=== PATIENT | female | born 1960 | race Caucasian/White ===

== ENCOUNTER 2018-03-18 01:11 | Outpatient (CLI) | payer MEDICAID, SELFPAY ==
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
== END 2018-03-18 01:31 ==
PROVIDERS: PCP Emergency Medicine; Visit Provider Internal Medicine
DX: M54.2 Cervicalgia (principal); R51 Headache; M50.322 Other cervical disc degeneration at C5-C6 level; M50.323 Other cervical disc degeneration at C6-C7 level; M47.812 Spondylosis without myelopathy or radiculopathy, cervical region
CPT/HCPCS: 72050

== ENCOUNTER 2018-04-23 09:38 | Outpatient (CLI) | payer MEDICAID, SELFPAY ==
[2018-04-23 11:56] LABS: Cholesterol 250 mg/dL (50-200); HDL Cholesterol 60 mg/dL (40-60); LDL CHOLESTEROL 157 mg/dL (<100); TSH (W/Ref FT4) 1.09 uIU/mL (0.358-3.74); Triglyceride 123 mg/dL (30-150)
== END 2018-04-23 09:58 ==
PROVIDERS: PCP Emergency Medicine; Visit Provider Internal Medicine
DX: E78.5 Hyperlipidemia, unspecified (principal); R22.1 Localized swelling, mass and lump, neck
CPT/HCPCS: 80061; 83721; 84443

== ENCOUNTER 2018-06-13 09:26 | Outpatient (CLI) | payer MEDICAID, SELFPAY ==
[2018-06-13 13:11] LABS: Absolute Basophil Count 0.02 k/cumm (0.0-0.2); Absolute Eosinophil Count 0.05 k/cumm (0.0-0.7); Absolute Monocyte Count 0.31 k/cumm (0.11-0.7); Absolute Neutrophil Count 2.15 k/cumm (1.2-6.7); Basophils % 0.5; Eosinophils % 1.2; HGB 13.4 g/dL (12.0-15.5); Lymphocytes % 38.7; Mean Corp. HGB Concentration 33.5 g/dL (32.0-36.0); Mean Corpuscular Hemoglobin 31.1 pg (27.0-33.0); Mean Corpuscular Volume 92.8 fL (80-95); Mean Platelet Volume 11.4 fL (8.0-11.0); Monocytes % 7.5; Neutrophils % 52.1; Platelet Count 237 x1000/uL (130-400); RBC 4.31 m/cumm (4.00-5.20); RBC Distribution Width 12.6 % (11.7-14.6); White Blood Cell Count 4.13 k/cumm (4.4-10.8)
[2018-06-13 13:33] LABS: ALT 29 U/L (12-78); AST 16 U/L (15-37); Albumin 3.6 g/dL (3.4-5.0); Alkaline Phosphatase 56 U/L (46-116); Anion Gap 6.1 mmol/L (3-11); BUN 8 mg/dL (7-18); Bilirubin, Total 0.6 mg/dL (0.2-1.0); CO2 31.9 mmol/L (21.0-32.0); CREATININE 0.64 mg/dL (0.55-1.02); Calcium 9.8 mg/dL (8.5-10.1); Chloride 104 mmol/L (98-107); Glucose 100 mg/dL (70-100); Potassium 4.5 mmol/L (3.5-5.1); Sodium 142 mmol/L (136-145)
== END 2018-06-13 09:46 ==
PROVIDERS: PCP Emergency Medicine; Visit Provider Internal Medicine
DX: M54.2 Cervicalgia (principal)
CPT/HCPCS: 36415; 80053; 85025

== ENCOUNTER 2018-07-14 09:54 | Outpatient (CLI) | payer MEDICAID, SELFPAY ==
--- NOTE | 2018-07-14 09:32 | DI.RAD_ITS ---
SYMPTOMS/DIAGNOSIS: LT KNEE PAIN LEFT KNEE: The joint spaces are well maintained. No joint effusion is seen. There is minimal periarticular spurring. IMPRESSION: Minimal degenerative changes.
== END 2018-07-14 10:14 ==
PROVIDERS: PCP Emergency Medicine; Visit Provider Physician Assistant
DX: M25.562 Pain in left knee (principal); M17.12 Unilateral primary osteoarthritis, left knee
CPT/HCPCS: 73562

== ENCOUNTER 2019-12-15 16:26 | Outpatient (REF) | payer MEDICAID, SELFPAY ==
--- NOTE | 2019-12-15 13:40 | PAPFT_PTH ---
PATIENT: Tori Lopez LOC: [facility] U#:[id number] AGE/SX: 59/F ROOM: RE12/15/[address]: Dorina Canales, PhD [employer]LECTOR : 1960 BED: DIS: 12/15/2019 SPEC #: [id number] RECD: 12/16/19 13:16 STATUS: ZOË RESera #: [id number] ALEXYS: 12/15/19 13:[address]: Dorina Canales DEPT: [facility] Cytology RECD BY: Alie Ramirez Tissues: 1 - CX/ENDOCX FOR PAP SMEARS Procedures: PAP THIN PREP/UVM Screening HPV DNA PROBE Comments: [id number]
== END 2019-12-15 16:46 ==
LOC: LBN 16:26
PROVIDERS: PCP Nurse Practitioner; Visit Provider Nurse Practitioner
DX: Z12.4 Encounter for screening for malignant neoplasm of cervix (principal); Z11.51 Encounter for screening for human papillomavirus (HPV)
CPT/HCPCS: 88142; 87624

== ENCOUNTER 2020-11-16 07:47 | Day surgery (SDC) | payer MEDICAID, SELFPAY ==
--- NOTE | 2020-11-15 14:22 | W.ANESPRE ---
General Info Date of Service Date Performed: 11/16/20 Height: 5 ft 5.5 in Weight: 67.1 kg Body Mass Index (BMI): 24.2 Surgical Procedure: Operation Date: 11/16/20 09:05 Proposed Procedures Side Surgeon p Colonoscopy Suzanne Caraballo MD Meds Allergies and Home Medications Allergies Allergy/AdvReac Type Severity Reaction Status Date / Time ropinirole Allergy Severe vomited Verified 11/16/20 08:17 for 3 days sertraline [From Zoloft] AdvReac Intermediate lack of Verified 11/16/20 08:17 responsiveness Home Medication Medication Instructions Recorded acetaminophen [Acetaminophen Extra 1,000 mg PO TID #60 tab 09/05/17 Strength] ibuprofen 600 mg tablet 600 mg PO Q8H PRN PRN #30 tab 03/06/18 clonazepam 0.5 mg tablet 0.5 mg PO PRN #60 tab 09/09/20 bisacodyl 5 mg tablet,delayed 5 mg PO ONCE #4 tab 11/11/20 release polyethylene glycol 3350 17 238 g PO ONCE #238 g 11/11/20 gram/dose oral powder Current Visit Medications: Current Medications Generic Name Dose Route Start Last Admin Trade Name Freq PRN Reason Stop Dose Admin Ringer's Solution 1,000 mls @ 80 mls/hr 11/16/20 06:00 IV 12/15/20 23:59 INFUSION VERÓNICA IV Miscellaneous Supplies 1 each 11/16/20 06:00 Iv Access IV 12/15/20 23:59 DIRECTED VERÓNICA Sodium Chloride 0 ml 11/16/20 06:00 Normal Saline Flush 10 Ml Syr IV 12/15/20 23:59 PRN PRN Sodium Chloride 0 ml 11/16/20 06:00 Normal Saline 10 Ml Vial IJ 12/15/20 23:59 DIRECTED PRN Sterile Water 0 ml 11/16/20 06:00 Water,Injection,Sterile 10 Ml Vial IJ 12/15/20 23:59 DIRECTED PRN PFSH Active Problems Active Problems: Problem Status Onset Code Anxiety F41.9 Depressive disorder F32.9 Diverticula of colon 09/21/14 K57.30 Migraine G43.909 Restless leg syndrome 02/15/15 G25.81 Insomnia G47.00 Allergic rhinitis J30.9 Osteoarthritis M19.90 Diverticulitis K57.92 Colicky LLQ abdominal pain R10.32 Medical History Medical History Basal cell carcinoma of lower extremity (04/03/13) Carpal tunnel syndrome of right wrist (02/15/15) surgery 2016 Colicky LLQ abdominal pain De Quervain's tenosynovitis, left (11/02/16) Surgical History Surgical History excision of breast ducts left side for bloody discharge History of carpal tunnel release History of colonoscopy Reduction mammoplasty Tobacco Smoking/Tobacco Use Status: Never Passive smoking exposure: No Substance Use Substance use: Never Substance use type: does not use Vital Signs and Lab Results Vital Signs Most Recent Vital Signs in EMR: Temp Pulse Resp BP Pulse Ox 36.2 C L 74 16 126/81 99 11/16/20 08:14 11/16/20 08:14 11/16/20 08:14 11/16/20 08:14 11/16/20 08:14 Lab Results Blood Type / Crossmatch: No Data to Display Complete Blood Count: No Data to Display Complete Metabolic Panel: No Data to Display Liver Function Panel: No Data to Display Coagulation Panel: No Data to Display Cardiac Panel: No Data to Display Arterial Blood Gas: No Data to Display Venous Blood Gas: No Data to Display Pancreas Panel: No Data to Display Thyroid Panel: No Data to Display Infectious Disease: No Data to Display Blood Cultures: No Data to Display Toxicology Panel: No Data to Display Anesthesia Assessment and Plan Anesthesia History Personal History: PONV (With breast reduction surgery) Family History: No Family History of Anesthesia Complications Exercise Tolerance Exercise Tolerance: Metabolic Equivalents>4 Pertinent Negatives Pertinent Negatives: No Symptoms of GERD, No Major Cardiovascular Symptoms or Complaints, No Major Pulmonary Symptoms or Complaints and No History of CVA/TIA Cardiac & Pulmonary Exam Cardiac Exam: Normal S1/S2 Heart Sounds Pulmonary Exam: Clear Bilateral Breath Sounds Airway Exam Known Difficult Airway: No Mallampati Class: 2 Mouth Opening: Normal (> 3cm) Thyromental Distance: Greater than 3 cm Neck Range of Motion: Full ROM Neck Circumference: Normal Teeth Condition: Normal Dentition and Loose or Chipped (Right upper broken, none loose) ASA Classification ASA Score: ASA 2 Emergency Case?: No NPO Status NPO Status: NPO Clears >2 hours, Solids >8 hours Anesthesia Plan Resuscitation Status: Full Code Anesthesia Technique: General Anesthesia Airway Planned: Natural Airway Monitors Used: Standard Monitors Preoperative Comments:: 60 yo female for colonoscopy, last was 5 yrs ago, recent diverticulitis treatment.
--- NOTE | 2020-11-16 06:51 | COLE_ITS ---
Date of service: 11/16/20 Time of Service: 09:03 Colonoscopy Report Date of procedure: 11/16/20 Pre-op diagnosis general: Colon Cancer screening and diverticulitis Post-op diagnosis procedure note: same Procedure: Colonoscopy Surgeon: Suzanne Caraballo Anesthesia Type: General:No Airway (ASA 2/Viraj Cavazos CRNA) Estimated blood loss (mL): 0 Pathology: none sent Complications: None Disposition: same day Indications: The patient is here for Colonoscopy pre-op. Her last screening was reported to be [address] [facility]. She has no family history of colon cancer. She has recently diagnosed and treated for diverticulitis on 09/27/20. All the symptoms she was previously having during that flare have resolved. However, she is also experiencing anal pain that occurs spontaneously and resolves with use of ibuprofen and sitting. Reviewed and discussed diverticulitis and the ideal diet. She was also given educational handouts as well. -Discussed colonoscopy bowel prep as well as the procedure. Discussed possible complications of the procedure to include bleeding, pain, perforation, missed small lesion/polyp, sore throat, aspiration and adverse reaction to the medications. Questions were answered to patient?s satisfaction. No guarantees were implied or given. Prep: Miralax/Dulcolax Procedure Start Time: :03 Procedure End Time: :19 Retraction Time: 10 minutes Findings: mild descending and sigmoid diverticulosis Procedure Description: After informed consent was obtained the patient was taken to the procedure room and placed in a left decubitous position. Monitors were applied and a time out was done. The patients name, date of , procedure, allergies to medications and metal in their body was reviewed. The patient was then sedated. Once sedated and comfortable a rectal exam was done. External exam was normal. Internal exam revealed a normal sphincter tone and no palpable masses. The scope was then introduced and retro-flexed. No internal hemorrhoids, polyps or masses were identified on retro-flexion. The scope was then advanced to the cecum without difficulty. The ileocecal vlave and appendiceal orifice were identified. The prep was good. The scope was then slowly retracted over 10 minutes back into the rectum. There were no polyps. There was mild dedscending and sigmoid diverticulosis noted. The scope was removed and the patient was woken up and taken back to Same day surgery in stable condition. The patient tolerated the procedure well and there were no immediate complications. Follow up: The patient should follow up in 10 years unless they develop changes in bowel habits or other new gastrointestinal complaints.
--- NOTE | 2020-11-16 06:55 | W.PM.DSUDISC ---
Discharge Plan Disposition Patient Disposition: HOME Condition: Good Discharge Details Reason For Visit: colonoscopy Attending Provider: Suzanne Caraballo Primary Care Provider: Kesha Conteh Home Meds and New Rx's Prescriptions: Continued ibuprofen 600 mg tablet 600 mg PO Q8H PRN PRN (Reason: pain) Qty: 30 RF: 1 clonazepam [Klonopin] 0.5 mg tablet 0.5 mg PO PRN Qty: 60 RF: 0 acetaminophen [Acetaminophen Extra Strength] 500 MG tablet 1,000 mg PO TID Qty: 60 RF: 0 Discontinued polyethylene glycol 3350 17 gram/dose powder 238 g PO ONCE Qty: 238 RF: 0 bisacodyl [Dulcolax (bisacodyl)] 5 mg tablet,delayed release (DR/EC) 5 mg PO ONCE Qty: 4 RF: 0 Discharge Instructions Instructions: Diverticulosis (DC) Additional Instructions: Findings: mild diverticulosis Follow up: 10 years Please call if you develop: fevers >101.5 Nausea or Vomiting Abdominal pain that is not transient Rectal bleeding that is more then a tbsp A hard abdomen and inability to pass gas DAY SURGERY UNIT POST ENDOSCOPY INSTRUCTIONS Instructions for everyone who is given Anesthesia: For your safety, please do the following for the next 24 Hours: a. Do not drive or operate dangerous equipment b. Do not drink alcohol beverages or use any recreational drugs for the first 24 hours or while taking pain medications. The medications in your body may have a reaction that can be dangerous. c. Do not make any important decisions or sign any important papers 1. Generally there are no restrictions on your activity after a day or so has gone by, but you may feel a bit fatigued for a few days. 2. After you arrive home you may have a light meal and return to a normal diet as you can tolerate it without feeling sick to your stomach. 3. After surgery, you may feel pain or discomfort. This should be only transient, but if it persists please contact your doctor. 4. If there are any questions regarding the findings of your procedure, please feel free to contact your doctor. 6. If you are unable to contact your doctor with a problem, contact the hospital at [phone]. 7. Continue all your regular medications unless directed otherwise. I understand the above instructions and have no questions. Signature of Patient or Responsible Adult Escort Date/Time Name of Responsible Adult Escort Signature of Nurse Date/Time Activity:: Activity as Tolerated Diet:: High fiber diet Discharge Orders Discharge Orders: Discharge Order (Routine); Ordered 11/16/20 Ordered By: Suzanne Caraballo
[2020-11-16 08:14] VITALS: BP 126/81; PULSE 74; RESP 16; TEMP 36.2; O2SAT 99
[2020-11-16] MEDS: Lactated Ringers 1,000 ML 80 ML IV (08:37)
[2020-11-16 08:42] VITALS: BMI 24.2
--- NOTE | 2020-11-16 09:15 | W.ANESPOSTOP ---
Postoperative Evaluation Date, Time and Location Date Performed: 11/16/20 Time Performed: 09:24 Patient Location: Day Surgery Unit Vital Signs Most Recent Imported Vital Signs: Most Recent Vital Signs Temp Pulse Resp BP Pulse Ox 36.2 C L 74 16 126/81 99 11/16/20 08:14 11/16/20 08:14 11/16/20 08:14 11/16/20 08:14 11/16/20 08:14 Most Recent Manually Entered Vital Signs: Adult Blood Pressure: 94/65 Heart Rate: 71 Respirations: 16 Oxygen Saturation (%): 98 Temperature (C): 36.2 C Pain Score (0-10 Scale): 0 Pain Score Most Recent Pain Score: Most Recent Pain Score Pain Level 0 11/16/20 08:14 Assessment Mental Status: Awake (Alert & Oriented to Patient Baseline) Airway and Respiratory Function: Patent airway with normal (patient baseline) respiratory exam Cardiovascular Function: Hemodynamically Stable Hydration Status: Adequately Hydrated Nausea & Vomiting: No Nausea or Vomiting Pain: Pt. Denies Any Pain Peripheral Nerve Block: Patient did not receive a nerve block
[2020-11-16 09:25] VITALS: BP 94/65; PULSE 71; RESP 16; TEMPC 36.2; O2SAT 98
[2020-11-16 09:27] VITALS: BP 103/63; PULSE 76; RESP 14; TEMP 36.4; O2SAT 98
[2020-11-16 09:48] VITALS: BP 118/80; PULSE 69; RESP 15; TEMP 36; O2SAT 98
== END 2020-11-16 10:20 | disposition home or self-care (01) ==
LOC: SUR 07:48
PROVIDERS: Visit Provider Surgery
PROC: 0DJD8ZZ Inspection of Lower Intestinal Tract, Via Natural or Artificial Opening Endoscopic (ICD-10-PCS; CPT 45378; principal; 2020-11-16 09:00)
DX: Z12.11 Encounter for screening for malignant neoplasm of colon (principal); K57.30 Diverticulosis of large intestine without perforation or abscess without bleeding
CPT/HCPCS: 45378; J2001

== ENCOUNTER 2021-04-26 19:35 | Outpatient (REF) | payer MEDICAID, SELFPAY ==
[2021-04-28 16:29] LABS: COVID-19 RT-PCR UVMMC Result Negative (Negative)
== END 2021-04-26 19:36 | disposition home or self-care (01) ==
LOC: LBN 19:35
PROVIDERS: Visit Provider Physician Assistant
DX: Z20.822 Contact with and (suspected) exposure to COVID-19 (principal); R42 Dizziness and giddiness; R51.9 Headache, unspecified; R68.83 Chills (without fever)
CPT/HCPCS: U0003

== ENCOUNTER 2021-10-18 17:31 | Emergency (ER) | payer MEDICAID, SELFPAY ==
[2021-10-18] VITALS (29 sets, daily range): BP systolic 106–135; BP diastolic 64–102; PULSE 86–185; RESP 10–24; O2SAT 85–100
--- NOTE | 2021-10-18 17:30 | DI.RAD_ITS ---
Exam(s) XR PORTABLE CHEST AP EXAM: XR PORTABLE CHEST AP CLINICAL HISTORY: CP, SOB< SVT TECHNIQUE: 2D digital imaging was performed of the chest. One image was obtained. An AP view was ob tained. COMPARISON: CR XR CHEST 2VW (D) from 10/10/2017 FINDINGS: MEDIASTINUM: Normal. HEART: Normal. PULMONARY VASCULATURE: Normal. LUNGS: Clear. PLEURAL SPACE: No pleural effusion or pneumothorax. BONE:Within normal limits for the patient's age. OTHER FINDINGS:Normal. IMPRESSION: No acute pulmonary findings. DATA REPOSITORY: RADIATION DOSE DELIVERED:
--- NOTE | 2021-10-18 17:30 | RT.EKG_ITS ---
APPROVED REPORT Exam: Resting ECG Reason for Exam: Tachycardia, Dizziness Patient Location: E HR:184 bpm ECG Measurements Heart Rate 184 AXIS WA 41 P 0 QRSd 81 QRS 22 QT 286 T 33 QTc 499 Conclusion Supraventricular tachycardia...V-rate>(220-age), QRSd<120 Paired ventricular premature complexes...sequence of 2 V complexes Aberrant complex...small R-R variation, aberrant QRS narrow complex tachycardia, with PVC
--- NOTE | 2021-10-18 17:42 | W.ED.GENAD ---
Discharge Plan Disposition Patient Disposition: HOME Condition: Stable Discharge Details Clinical Impression: Nonsustained supraventricular tachycardia Primary Care Provider: Betty Whitney ED Provider: Pinky Sanders Home Meds and New Rx's Prescriptions: Continued amitriptyline 10 mg tablet 10 mg PO QHS Qty: 90 3RF Rx Instructions: Take 1 tab 2-3 hours prior to desired sleep. naproxen 500 mg tablet,delayed release (DR/EC) 500 mg PO BID PRN (Reason: pain) Qty: 60 3RF clonazepam [Klonopin] 0.5 mg tablet 0.5 mg PO PRN Qty: 60 0RF Rx Instructions: as needed for anxiety. Limit one per day acetaminophen [Acetaminophen Extra Strength] 500 MG tablet 1,000 mg PO TID Qty: 60 0RF Discharge Instructions Instructions: Supraventricular Tachycardia (ED), Valsalva Maneuver (ED) Additional Instructions: At this time urine is abnormal heart rhythm called supraventricular tachycardia which was converted by medication. Please follow-up with cardiology within the next 1 to 2-week. Please call 911 or return immediately to the emergency department for any further palpitations, fast heart rate, dizziness, chest pressure or chest pain, lightheadedness or feeling like you are going to pass out. Follow up with primary care provider in 3-5 days. Return to ED sooner if any worsening or concerns. Increase oral fluids. Stand Alone Forms: Work Release Referrals: Johanny Womack MD [ [facility] STAFF PHYSICIAN] - 1 week (SVT-Converted with Adenosine) Medical Decision Making 61-year-old female presents to the ER chief complaint of fast heart rate and dizziness which began just before 5 PM approximately an hour ago. 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 She thought it was anxiety she did take a Klonopin prior to arrival. Upon initial presentation she presents with a heart rate of 189 and SVT. Blood pressure 116 systolic. She denies any past medical history no cardiac history. She does have surgical history of carpal tunnel release. Please see manager documentation patient was given 6 mg of adenosine IV push, rhythm was not converted. 12 mg of adenosine ordered fast IV push patient's heart rate came down to 118. 1802: Currently HR 103. Patient reports feeling much better after conversion of SVT. Second EKG ordered which shows sinus tachycardia and occasional PVCs. Cardiac work-up ordered including serial troponins and chest x-ray. CBC shows no leukocytosis, initial troponin less than 50 within normal limits, glucose 117, CMP also largely within normal limits. Patient reevaluation prior to discharge she reports feeling much better just increased fatigue. Denies any chest pain chest pressure palpitations or any other associated symptoms. Medical Records Medical records reviewed: Yes I reviewed the patient's medical records. Lab Data Lab results reviewed: Yes I reviewed the patient's lab results. Labs: Laboratory Tests Range/Units 10/18/21 10/18/21 10/18/21 17:58 17:58 17:58 WBC (4.4-10.8) 10^3/uL 8.69 RBC (3.93-5.22) 10^6/uL 4.83 Hgb (11.2-15.7) g/dL 14.8 Hct (36.0-46.0) % 43.3 MCV (80-95) fL 90 MCH (27.0-33.0) pg 30.6 MCHC (32.0-36.0) % 34.2 RDW (11.7-14.6) % 12.2 Plt Count (130-400) 10^3/uL 284 MPV (8.0-11.0) fL 11.1 H Immature Gran % 0.2 Neutrophils % 50.8 Lymphocytes % 38.8 Monocytes % 8.5 Eosinophils % 1.0 Basophils % 0.7 Nucleated RBC % (0.0-0.3) % 0.0 Absolute Neutrophils (1.2-6.7) 10^3/uL 4.41 Absolute Lymphocytes (1.2-3.4) 10^3/uL 3.37 Absolute Monocytes (0.1-0.8) 10^3/uL 0.74 Absolute Eosinophils (0.0-0.7) 10^3/uL 0.09 Absolute Basophils (0.0-0.2) 10^3/uL 0.06 PT (9.3-11.0) sec 9.6 INR (0.9-1.1) 1.0 Sodium (136-145) mmol/L 136 Potassium (3.5-5.1) mmol/L 3.9 Chloride (98-107) mmol/L 100 Carbon Dioxide (21.0-32.0) mmol/L 25.9 Anion Gap (3-11) mmol/L 10.1 BUN (7-18) mg/dL 13 Creatinine (0.55-1.02) mg/dL 0.8 Estimated GFR/1.73 m2 (mL/min/1.73m2) >= 60.00 Glucose (74-106) mg/dL 117 H Calcium (8.5-10.1) mg/dL 9.7 Magnesium (1.8-2.4) mg/dL 2.2 Total Bilirubin (0.2-1.0) mg/dL 0.7 AST (15-37) U/L 23 ALT (14-59) U/L 38 Alkaline Phosphatase (46-116) U/L 52 Troponin I (<or=60) ng/L < 50 Total Protein (6.4-8.2) g/dL 7.8 Albumin (3.4-5.0) g/dL 4.2 Range/Units 10/18/21 20:41 WBC (4.4-10.8) 10^3/uL RBC (3.93-5.22) 10^6/uL Hgb (11.2-15.7) g/dL Hct (36.0-46.0) % MCV (80-95) fL MCH (27.0-33.0) pg MCHC (32.0-36.0) % RDW (11.7-14.6) % Plt Count (130-400) 10^3/uL MPV (8.0-11.0) fL Immature Gran % Neutrophils % Lymphocytes % Monocytes % Eosinophils % Basophils % Nucleated RBC % (0.0-0.3) % Absolute Neutrophils (1.2-6.7) 10^3/uL Absolute Lymphocytes (1.2-3.4) 10^3/uL Absolute Monocytes (0.1-0.8) 10^3/uL Absolute Eosinophils (0.0-0.7) 10^3/uL Absolute Basophils (0.0-0.2) 10^3/uL PT (9.3-11.0) sec INR (0.9-1.1) Sodium (136-145) mmol/L Potassium (3.5-5.1) mmol/L Chloride (98-107) mmol/L Carbon Dioxide (21.0-32.0) mmol/L Anion Gap (3-11) mmol/L BUN (7-18) mg/dL Creatinine (0.55-1.02) mg/dL Estimated GFR/1.73 m2 (mL/min/1.73m2) Glucose (74-106) mg/dL Calcium (8.5-10.1) mg/dL Magnesium (1.8-2.4) mg/dL Total Bilirubin (0.2-1.0) mg/dL AST (15-37) U/L ALT (14-59) U/L Alkaline Phosphatase (46-116) U/L Troponin I (<or=60) ng/L Cancelled Total Protein (6.4-8.2) g/dL Albumin (3.4-5.0) g/dL ECG Data Attestation: I personally reviewed and interpreted this ECG (s) as follows: Prior ECG tracings: not available for review Interpretation: Supraventricular tachycardia stable. Rate of 184, aberrant QRS. Please see official report Dr. Dilshad Muñoz. HPI General Mode of arrival: wheelchair. Date/Time Provider Initiated Documentation: 10/18/21 17:32. Limitations to Documentation: no limitations. Information obtained by: patient, RN notes reviewed and old records reviewed. HPI Narrative: 61-year-old female presents to the ER chief complaint of fast heart rate and dizziness which began just before 5 PM approximately an hour ago. 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 She thought it was anxiety she did take a Klonopin prior to arrival. Upon initial presentation she presents with a heart rate of 189 and SVT. Blood pressure 116 systolic. She denies any past medical history no cardiac history. She does have surgical history of carpal tunnel release. Related Data Home Medications Medication Instructions Recorded Confirmed acetaminophen 500 mg tablet 1,000 mg PO TID #60 tabs 09/05/17 10/18/21 (Acetaminophen Extra Strength) clonazepam 0.5 mg tablet (Klonopin) 0.5 mg PO PRN #60 tabs 01/25/21 10/18/21 amitriptyline 10 mg tablet 10 mg PO QHS #90 tabs 03/06/21 10/18/21 naproxen 500 mg tablet,delayed 500 mg PO BID PRN pain #60 tabs 03/06/21 10/18/21 release Previous Rx's Medication Instructions Recorded acetaminophen 500 mg tablet 1,000 mg PO TID #60 tabs 09/05/17 (Acetaminophen Extra Strength) clonazepam 0.5 mg tablet (Klonopin) 0.5 mg PO PRN #60 tabs 01/25/21 amitriptyline 10 mg tablet 10 mg PO QHS #90 tabs 03/06/21 naproxen 500 mg tablet,delayed 500 mg PO BID PRN pain #60 tabs 03/06/21 release Allergies Allergy/AdvReac Type Severity Reaction Status Date / Time ropinirole AdvReac Severe vomited Verified 10/18/21 17:52 for 3 days sertraline [From Zoloft] AdvReac Intermediate lack of Verified 10/18/21 17:42 responsiveness General Stated Complaint: Palpitatns AMRITA: 2 Review of Systems All systems reviewed & are unremarkable except as noted in HPI and below Cardiovascular Cardiovascular: Reports as per HPI, Reports chest pain, Reports chest pain at rest, Reports rapid heart rate, Reports lightheadedness and Reports radiating jaw, neck or arm pain Respiratory Respiratory: Denies cough, Denies pain with cough and Denies wheezing Gastrointestinal Gastrointestinal: Denies diarrhea and Denies vomiting Allergic/Immunologic Allergic/Immunologic: Denies wheezing PFSH All Active Problems (Updated 10/18/21 @ 19:18 by Pinky Sanders NP) Nonsustained supraventricular tachycardia (Acute) Anxiety (Acute) Depressive disorder (Acute) Diverticula of colon (Acute 09/21/14) DR. FOSTER; PER COLONOSCOPY;09/21/14 Also seen on repeat colo in 2020 Migraine (Acute) Restless leg syndrome (Acute 02/15/15) Insomnia (Acute) Allergic rhinitis (Acute) Osteoarthritis (Chronic) Diverticulitis (Chronic) Colicky LLQ abdominal pain (Acute) Medical History Basal cell carcinoma of lower extremity (04/03/13) Carpal tunnel syndrome of right wrist (02/15/15) surgery 2016 De Quervain's tenosynovitis, left (11/02/16) Surgical History excision of breast ducts left side for bloody discharge History of carpal tunnel release History of colonoscopy (~10/2020) Reduction mammoplasty Family History Mother Essential hypertension Father Heart disease Social History Smoking/Tobacco Use Status: Never Smoking risk assessment performed?: Yes Drug use: Never Substance use type: does not use Do you feel safe at home: Yes Do you feel safe in your relationship?: Yes Exam Narrative Exam Narrative: Constitutional: Alert and oriented x3. Appears stated age. Normal body habitus. Head: Normocephalic, no trauma. Eyes: Pupils PERRL, Red reflex noted, EOM's intact. Eyelids symmetrical without lesions, discharge, or swelling. Chest: Patient is in SVT upon arrival narrow complex tachycardia rate of 189. Resp: Lungs clear to auscultation bilaterally, no wheezes, rales, or rhonchi. Abdomen: Soft, non-distended, Normoactive bowel sounds all 4 quads. Musculoskeletal: Unable to assess gait moves all 4 extremities without difficulty. Skin: No suspicious rashes or lesions. Capillary refill less than 2 sec. Neurologic: Cranial nerves II-XII intact. Alert and oriented x 3. Motor: No deficits noted. Sensory: Intact bilaterally all 4 extremities. Reflexes: DTR's intact bilaterally.. Hematologic/Lymphatic: No ecchymosis, no lymphadenopathy. Course Vital Signs Vital signs: Vital Signs Pulse 180 H 10/18/21 17:34 Respiratory Rate 16 10/18/21 17:34 Blood Pressure 119/102 H 10/18/21 17:34 Pulse Oximetry 99 10/18/21 17:34 Pulse 180 H 10/18/21 17:34 Respiratory Rate 16 10/18/21 17:34 Blood Pressure 119/102 H 10/18/21 17:34 Pulse Oximetry 99 10/18/21 17:34 Procedures EJ/Peripheral Line Arm L: Time Out Performed: No Skin Cleansed in Sterile Fashion: Yes Size (gauge): 18 IV Secured and Dressing Applied: Yes Patient Tolerated Procedure: well and no complications Additional Comments: 18 ga LAC Critical Care Time Critical Care Time Critical Care Time: Yes Total Critical Care Time: 45 Attestation: I spent greater than 35 minutes addressing this patient's acute life threatening illness. This time was spent engaged in actions directly related to the patient's care. Failure to initiate these interventions would have likely resulted in clinically significant or life threatening deterioration in the patients condition.
--- NOTE | 2021-10-18 17:45 | RT.EKG_ITS ---
APPROVED REPORT Exam: Resting ECG Reason for Exam: Post conversion SVT Patient Location: E HR:101 bpm ECG Measurements Heart Rate 101 AXIS CO 153 P 66 QRSd 94 QRS -42 QT 355 T 23 QTc 461 Conclusion Sinus tachycardia...rate> 99 Ventricular trigeminy...trigeminy string>6 w/ V complexes Left axis deviation...QRS axis (-30,-90) sinus tachycardia, left axis, incomplete RBBB, PVCs
[2021-10-18] MEDS: Adenosine 6 MG/2 ML VIAL IVP (17:50)
[2021-10-18] MEDS: Adenosine 6 MG/2 ML VIAL (17:55)
[2021-10-18 18:10] LABS: Abs Immature Grans 0.02 10^3/uL (0.0-0.06); Absolute Basophil Count 0.06 10^3/uL (0.0-0.2); Absolute Eosinophil Count 0.09 10^3/uL (0.0-0.7); Absolute Lymphocyte Count 3.37 10^3/uL (1.2-3.4); Absolute Monocyte Count 0.74 10^3/uL (0.1-0.8); Absolute Neutrophil Count 4.41 10^3/uL (1.2-6.7); Basophils % 0.7; HCT 43.3 % (36.0-46.0); HGB 14.8 g/dL (11.2-15.7); Immature Grans % 0.2; Lymphocytes % 38.8; MCH 30.6 pg (27.0-33.0); MCHC 34.2 % (32.0-36.0); MCV 90 fL (80-95); MPV 11.1 fL (8.0-11.0); Monocytes % 8.5; Neutrophils % 50.8; Platelet Count 284 10^3/uL (130-400); RBC 4.83 10^6/uL (3.93-5.22); RDW 12.2 % (11.7-14.6); RDW-SD 40.3 fL; WBC 8.69 10^3/uL (4.4-10.8)
[2021-10-18 18:24] LABS: Prothrombin Time 9.6 sec (9.3-11.0)
[2021-10-18 18:33] LABS: ALT 38 U/L (14-59); AST 23 U/L (15-37); Albumin 4.2 g/dL (3.4-5.0); Alkaline Phosphatase 52 U/L (46-116); Anion Gap 10.1 mmol/L (3-11); BUN 13 mg/dL (7-18); Bilirubin, Total 0.7 mg/dL (0.2-1.0); CO2 25.9 mmol/L (21.0-32.0); CREATININE 0.8 mg/dL (0.55-1.02); Calcium 9.7 mg/dL (8.5-10.1); Chloride 100 mmol/L (98-107); Glucose 117 mg/dL (74-106); Magnesium 2.2 mg/dL (1.8-2.4); Potassium 3.9 mmol/L (3.5-5.1); Sodium 136 mmol/L (136-145); Total Protein 7.8 g/dL (6.4-8.2); Troponin I < 50 ng/L (<or=60)
--- NOTE | 2021-10-18 18:37 | DI.VRAD_ITS ---
PROCEDURE INFORMATION: Exam: XR Chest Exam date and time: 10/18/2021 18:04 Age: 61 years old Clinical indication: Other: Cp, SOB, svt TECHNIQUE: Imaging protocol: Radiologic exam of the chest. Views: 1 view. COMPARISON: CT CHEST WITH CONTRAST 10/17/2017 13:51 FINDINGS: Lungs: No consolidation. Pleural spaces: No pleural effusion. No pneumothorax. Heart/Mediastinum: No cardiomegaly. Bones/joints: No acute fracture. IMPRESSION: Negative portable chest. Dictated and Authenticated by: Bella Gleason MD. Ordering:PATRICIA Vacne MD
== END 2021-10-18 20:03 | disposition home or self-care (01) ==
PROVIDERS: Emergency Provider Registered Nurse Emergency; PCP Physician Assistant
DX: I47.1 Supraventricular tachycardia (principal); R42 Dizziness and giddiness; R07.9 Chest pain, unspecified; R06.02 Shortness of breath
CPT/HCPCS: 36415; 80053; 93005; 96374; 99284; 71045; 83735; 84484; 85025; 85610; 93010; J0153

== ENCOUNTER → 2022-01-18 02:46 | Outpatient (CLI) | payer MEDICAID, SELFPAY ==
--- NOTE | 2022-01-18 06:15 | ETT_ITS ---
APPROVED REPORT Exam: Exercise Treadmill Patient Location: Out-Patient Room/Bed: Stress Nurse: Sanam Jorge RN Ordering Provider:RUSTY BETANCOURT, Contact Number: [phone] BMI: 24.29 Baseline Rhythm: Sinus Rhythm Comment: PVC's Indications: Paroxysmal supraventricular tachycardia Medical History Medical History: Chest pain, SVT, anxiety Allergies: Sertraline. Ropinirole. Cardiac Risk Factors: Family history. Previous Cardiac Procedures: None Pretest Chest Pain Characteristics: None Exercise History: Indeterminate Physical Disabilities: None Lung Sounds: Clear to auscultation Heart Sounds: Regular Stress Test Details Test: Exercise stress testing was performed using a Pablito protocol. Rest Stress HR Resting HR Supine: 79 bpm Max Heart Rate (APMHR): 160 bpm Resting HR Standin bpm Target HR (85% APMHR): 136 bpm Max HR Achieved: 143 bpm % of APMHR: 89 Recovery HR: 83 bpm HR response to stress: Normal HR response to stress BP Resting BP Supine: 120/84 mmHg Resting BP Standin/84 mmHg Max BP: 138/84 mmHg Recovery BP: 126/82 mmHg BP response to stress: Normal blood pressure response to stress. ECG Resting ECG: Sinus Rhythm Ectopy: PVC's Stress ECG: Sinus Tachycardia ST Change: No significant ST segment changes noted Arrhythmia: PVC's Recovery ECG: Sinus Rhythm Recovery ST Change: No significant ST segment changes noted Recovery Arrhythmia: PVC's Comment: Pt w/ noted wandering baseline and some artifact at the end of stage 3 into recovery Clinical Reason for Termination: Fatigue Stress Symptoms: General Fatigue Exercise duration: 6 min29 sec Highest Stage Reached: Stage 3: 3.4 mph at 14% grade. Exercise capacity: 7.81 METs Angina Score: None James Treadmill Score: 5.3 Rate Pressure Product: 09621 Stress ECG Conclusion 1. Resting electrocardiogram showed left anterior fascicular block, incomplete right bundle branch bl ock 2. Patient exercised on Pablito protocol and completed a workload of 7.81 METS, stopping due to fatigue 3. Normal heart rate and blood pressure response to exercise. The patient achieved 89% of predicted heart rate for age 4. There was no electrocardiographic evidence of myocardial ischemia 5. There were no significant dysrhythmias James Treadmill Score is 5.3 which is Low risk. Stress Test Summary STAGE Time (mins) Speed (mph) Grade (%) HR BP SpO2 SYMPTOMS METS Supine 79 120/84 Standing 85 112/84 Dizzy, resolved within a minutes 1 3 1.7 10 114 118/70 4.5 2 6 2.5 12 132 138/80 7 3 9 3.4 14 141 10 1 min recovery 97 138/84 3 min recovery 83 6 min recovery 85 126/82 Patient presented to stress lab this morning very anxious and verbalizing increased anxiety related t o test. Patient reported that my heart always hurts but was unable to provide a more clear descript ion when probed about the hurt she was feeling. Patient tolerated stress test well.
== END ==
PROVIDERS: PCP Physician Assistant; Visit Provider Internal Medicine Cardiovascular Disease
DX: I47.1 Supraventricular tachycardia (principal)
CPT/HCPCS: 93017

== ENCOUNTER → 2022-02-09 00:58 | Outpatient (CLI) | payer MEDICAID, SELFPAY ==
--- OUTSIDE RECORDS SUMMARY | 2022-02-09 00:59 | XMS_ITS | Encounter Summary ---
:1960 Author Organization [place] [address] Care Team Providers Name Role Phone Jemima Whitney Primary Care Provider Reason for Referral Consultation (Routine) - Authorized Specialty Diagnoses / Procedures Referred By Referred To Contact Contact Electrophysiology / Diagnoses Paroxysmal supraventricular tachycardia PSVT, review ablation Johanny Womack MD [facility] 4a Cardiology [address] [place], [place] [address] [address] [place], [place] Phone: [phone] Phone: Referral ID Status Reason Start Expiration Visits Visits Date Date Requested Authorized [id number] Authorized Consult, 12/26/2021 12/26/2022 6 6 Test & Treat PCP Updated and/or Approved Encounter Details Date Type Department Care Team Description 12/26/2021 Transcribe Orders eDH Incoming Johanny Womack, Isadora l Referrals supraventricular [phone] [address] [place] [address] Social History Tobacco Use Types Packs/Day Years Used Date Never Smoker Smokeless Tobacco: Never Used Alcohol Use Standard Drinks/Week Comments Yes 1 (1 standard drink = 0.6 oz pure alcoho l) Sex Assigned at Date Recorded Not on file documented as of this encounter Plan of Treatment Scheduled Referrals Name Type Priority Associated Diagnoses Order S chedule Referral to Outpatient Routine Paroxysmal Ordered: Cardiology Referral supraventricular 12/26/2021 tachycardia documented as of this encounter Visit Diagnoses Diagnosis Paroxysmal supraventricular tachycardia documented in this encounter Care Teams Skin Installer Relationship Specialty Start Date End Date Jemima Whitney PA PCP - General Family Medicine 12/26/[address] [place] [address] [place] [id number] documented as of this encounter
--- OUTSIDE RECORDS SUMMARY | 2022-02-09 00:59 | XMS_ITS | Encounter Summary ---
:1960 Author Organization [facility] Address [address] [place] [address] Care Team Providers Name Role Phone Torres Sam DO Primary Care Provider Encounter Details Date Type Department Care Team Description 01/02/2018 Hospital Encounter Radiology Library at Torres Clark DO Lung mass [facility] [place] [address] [address] [place] [address] [phone] Social History Tobacco Use Types Packs/Day Years Used Date Never Smoker Smokeless Tobacco: Never Used Alcohol Use Standard Drinks/Week Comments Yes 1 (1 standard drink = 0.6 oz pure alcoho l) Sex Assigned at Date Recorded Not on file documented as of this encounter Medications at Time of Discharge Medication Sig Dispensed Refills Start Date End Date zolpidem (AMBIEN) 5 mg Take 1 tablet by mouth 30 tablet 0 1 Tablet nightly as needed for Sleep. carbidopa-levodopa Take 1 tablet by mouth 0 (SINEMET) 25-100 mg nightly. Reported on Tablet 04/03/2016 clonazePAM (KLONOPIN) 0.5 Take 0.5 mg by mouth 2 0 mg Tablet times daily as needed. ibuprofen (MOTRIN) 800 mg 800M-2 Tablet(s), 0 05/08/2005 tablet PO, Once daily documented as of this encounter Plan of Treatment Not on filedocumented as of this encounter Procedures Procedure Name Priority Date/Time Associated Diagnosis Comme nts REQUEST FOR 2ND Routine 01/02/2018 9:39 AM Lung mass Result s for this READ CT CHEST EDT procedure are in the results section. documented in this encounter Results Request For 2nd Read CT Chest (01/02/2018 9:39 AM EDT) Anatomical Region Laterality Modality Chest SO Specimen (Source) Anatomical Location Collection Method / Collectio n Time Received Time / Laterality Volume Impressions 01/02/2018 1:[address] normal [address] scan of the chest. Narrative 01/02/2018 1:27 PM EDT EXAMINATION: REQUEST FOR 2ND READ CT CHEST CLINICAL HISTORY: Rt Lung Mass; Rt Lung Mass; What Modality is the exam? CT Scan; Body Part (please add comments as necessary): chest; I believe a reinterpretation of this exam may alter care of Patient. Yes TECHNIQUE: A contrast-enhanced CT scan of the chest . COMPARISON: None. FINDINGS: The heart is normal in size. There is no evidence of hilar, mediastinal or axillary adenopathy. The lungs are clear . The major airways are clear. No evidence of bronchial wall thickening or bronchiectasis. Specifically no pulmonary mass is seen. No pleural or pe ricardial effusion or pleural thickening. Limited visualization of the upper abdom en reveals a 1 cm sharply marginated focus of decreased attenuation in the la teral segment of the left lobe of the liver most likely a cyst but too small t o characterize. No other abnormality is seen. No aggressive osseous lesion is seen. Procedure Note Raleigh Gutierres MD - 01/02/2018Format ting of this note might be different from the original. EXAMINATION: REQUEST FOR 2ND READ CT [address] CLINICAL HISTORY: Rt Lung Mass; Rt Lung Mass; What Modality is the exam? CT Scan; Body Part (please add comments as necessary): chest; I believe a reinterpretation of this exam may alter care of Patient. Yes TECHNIQUE: A contrast-enhanced CT scan of the chest . COMPARISON: None. FINDINGS: The heart is normal in size. There is no evidence of hilar, mediastinal or axillary adenopathy. The lungs are clear . The major airways are clear. No evidence of bronchial wall thickening or bronchiectasis. Specifically no pulmonary mass is seen. No pleural or pe ricardial effusion or pleural thickening. Limited visualization of the upper abdom en reveals a 1 cm sharply marginated focus of decreased attenuation in the la teral segment of the left lobe of the liver most likely a cyst but too small t o characterize. No other abnormality is seen. No aggressive osseous lesion is seen. IMPRESSION Essentially normal CT scan of the chest. Torres Sam DO IMG OUTSIDE INTERPRETATION O RDERABLES documented in this encounter Visit Diagnoses Diagnosis Lung mass Swelling, mass, or lump in chest documented in this encounter Care Teams Corporate Vp Advertising & Online Relationship Specialty Start Date End Date Torres Sam DO PCP - General 12/22/13 12/25/[address] [place] [address] documented as of this encounter
--- OUTSIDE RECORDS SUMMARY | 2022-02-09 00:59 | XMS_ITS | Clinical Summary ---
:1960 Author Organization [facility] [place] [address] Care Team Providers Name Role Phone Jemima Whitney Primary Care Provider Allergies No known active allergies Medications Medication Sig Dispensed Refills Start Date End Date Status ibuprofen (MOTRIN) 800M-2 0 05/08/2005 Active 800 mg tablet Tablet(s), PO, Once daily clonazePAM (KLONOPIN) Take 0.5 mg by 0 Active 0.5 mg Tablet mouth 2 times daily as needed. carbidopa-levodopa Take 1 tablet by 0 Active (SINEMET) 25-100 mg mouth nightly. Tablet Reported on 04/03/2016 zolpidem (AMBIEN) 5 Take 1 tablet by 30 tablet 0 04/21/2015 Active mg Tablet mouth nightly as needed for Sleep. Active Problems Problem Noted Date Basal cell carcinoma 12/22/2013 Dermal nevus of other site 12/22/2013 Other seborrheic keratosis 12/22/2013 Encounters Date Type Specialty Care Team Description 12/26/2021 Transcribe Orders Primary Care Johanny Womack MD Paroxy smal supraventricular tachycardia from Last 3 Months Family History Medical History Relation Comments Myocardial Infarction Father 78 COPD Heart Disease Mother afib Breast Cancer Neg Hx Relation Status Comments Father Mother Alive Social History Tobacco Use Types Packs/Day Years Used Date Never Smoker Smokeless Tobacco: Never Used Alcohol Use Standard Drinks/Week Comments Yes 1 (1 standard drink = 0.6 oz pure alcoho l) Sex Assigned at Date Recorded Not on file Last Filed Vital Signs Vital Sign Reading Time Taken Comments Blood Pressure 106/73 04/03/2016 1:59 PM EST Pulse 81 04/03/2016 1:59 PM EST Temperature 36.5 ??C (97.7 ??F) 04/03/2016 1:59 PM EST Respiratory Rate 16 10/03/2015 1:04 PM EDT Oxygen Saturation 97% 04/03/2016 1:59 PM EST Inhaled Oxygen Concentration - - Weight 70.7 kg (155 lb 12.8 oz) 04/03/2016 1:59 PM EST Height 164.7 cm (5' 4.84) 04/03/2016 1:59 PM EST Body Mass Index 26.05 04/03/2016 1:59 PM EST Plan of Treatment Health Maintenance Due Date Last Done Comments Covid-19 Vaccine (#1) 1960 HIV screen 1979 Hepatitis C Screening 1979 Tdap adult 01/28/1980 Tetanus vaccine 01/28/1980 Breast Cancer Share Decision Needed 2001 Colonoscopy 2006 Zoster vaccine (1 of 2) 2011 Advance Directive 01/28/2016 Breast Cancer screening 01/07/2019 01/07/2017, 10/03/2015 HPV test 04/03/2021 04/03/2016 PAP Smear 04/03/2021 04/03/2016 Influenza (Flu) vaccine (1 of 1 - 12/21/2021 Influenza standard series) Procedures Procedure Name Priority Date/Time Associated Diagnosis Comme nts ECG SCAN 12/15/2021 12:00 AM Results for this EDT procedure are i n the results section . from Last 3 Months Results SCAN DOC: ECG (12/15/2021 12:00 AM EDT) Narrative 12/15/2021 12:00 AM EDT This result has an attachment that is no t available. Ordered by an unspecified provider. Scanning Provider MEDIA MGR SCAN EXT ORDR/RSLT from Last 3 Months Insurance Payer Benefit Plan / Subscriber ID Effective Dates Phone Addre ss Type Group [place] [id number] 2016-Pres [phone] [address] [facility] ent [address] [place], [place] [phone] [id number] [address] (Home) [place] [phone] [place] (Work) [phone] Care Teams Earth Mover Relationship Specialty Start Date End Date Jemima Whitney PA PCP - General Family Medicine 12/26/21 [facility] [address] HOB[place], [place] [phone]
--- OUTSIDE RECORDS SUMMARY | 2022-02-09 00:59 | XMS_ITS | Encounter Summary ---
:1960 Author Organization [facility] [place] [address] Care Team Providers Name Role Phone Torres Sam DO Primary Care Provider Encounter Details Date Type Department Care Team Description 01/07/2017 Hospital Encounter Mammography at [facility] Cassie Elizalde Nipple discharge [facility] [address], [place] [address] GENERAL SURGERY [phone] [place], [place] [address] Social History Tobacco Use Types Packs/Day Years [...] Name Priority Date/Time Associated Diagnosis Comme nts MAMMO SCREENING CAD Routine 01/07/2017 2:11 PM Nipple dischar ge Results for this AND MARY JANE BILATERAL EDT procedure are in the results section. documented in this encounter Results Mammo Screen CAD and Mary Jane Bilat (Generic) (01/07/2017 2:11 PM EDT) Anatomical Region Laterality Modality Breast Bilateral Mammography Specimen (Source) Anatomical Location Collection Method / Collectio n Time Received Time / Laterality Volume Narrative 01/08/2017 2:22 PM EDT BILATERAL MAMMOGRAPHY REASON FOR EXAM: Screening TECHNIQUE: CC and MLO views were obtaine d of each breast using standard 2-D mammography as well as 3-D tomosynth esis. Computer aided detection was used. This is compared with prior images . FINDINGS: There are scattered areas of f ibroglandular density. There are no suspicious microcalcifications, anabel s, or areas of distortion. The pattern is stable. CONCLUSION: No mammographic evidence of malignancy. RECOMMENDATION: The [employer] and The Society of Breast Imaging recommend annual screenin g beginning at age 40 for the general female population. Screening ben uld continue as long as a woman is in good health and is expected to live 1 0 more years or longer. All women should be familiar with the known benefi ts, limitations, and potential harms linked to breast cancer screening. They should also know how their breasts normally look and feel and repor t any breast changes to a health care provider right away. Some women - b ecause of their family history, a genetic tendency, or certain other facto rs - should be screened with MRIs along with mammograms. (The number of wo men who fall into this category is very small.) The patient and health care provider should discuss the patient history and decide if earlier sc reening and breast MRI are appropriate. A result letter has been sent to this winter diaz by [facility]. BIRADS CATEGORY 1: NEGATIVE Cassie Kat MD IMG MAMMO ORDERABLES documented in this encounter Visit Diagnoses Diagnosis Nipple discharge Other sign and symptom in breast documented in this encounter Care Teams Pierce And Shave Press Operator Relationship Specialty Start Date End Date Torres Sam DO PCP - General 12/22/13 12/25/[address] [place] [address] documented as of this encounter
--- OUTSIDE RECORDS SUMMARY | 2022-02-09 01:00 | XMS_ITS | Encounter Summary ---
:1960 Author Organization [facility] Address [address] [place] [address] Care Team Providers Name Role Phone Torres Sam DO Primary Care Provider Encounter Details Date Type Department Care Team Description 03/03/2013 Hospital Encounter [facility] [place] Unknown, Provider, [facility] [address] [facility] [phone] [place] [address] (Work) [phone] Social History Tobacco Use Types Packs/Day Years Used Date Never Assessed Sex Assigned at Date Recorded Not on file documented as of this encounter Discharge Disposition Disposition Code Departure Means Destination Home or Self [place] documented in this encounter Plan of Treatment Upcoming Encounters Date Type Specialty Care Team Description 04/11/2022 Office Visit Ophthalmology Wiliam Mnea MD [address] [facility], [facility], [address] [place], [place] [address] (Wo rk) documented as of this encounter Visit Diagnoses Not on filedocumented in this encounter Care Teams Information Systems Supervisor Relationship Specialty Start Date End Date Torres Sam DO PCP - General 02/03/13 11/10/[address] [place], [place] [id number] documented as of this encounter
--- OUTSIDE RECORDS SUMMARY | 2022-02-09 01:00 | XMS_ITS | Encounter Summary ---
:1960 Author Organization [facility] [place] [address] Care Team Providers Name Role Phone Torres Sam DO Primary Care Provider Reason for Visit Reason Comments Follow-up fatigue Encounter Details Date Type Department Care Team Description 04/18/2015 Office Visit Obstetrics and Su Lamb MD Annual physical exam Gynecology at [facility] [address] [facility] & [place] [address] GYNECOLOGY [phone] [place] [address] Social History Tobacco Use Types Packs/Day Years Used Date Never Smoker Smokeless Tobacco: Never Used Alcohol Use Standard Drinks/Week Comments Yes 1 (1 standard drink = 0.6 oz pure alcoho l) Sex Assigned at Date Recorded Not on file documented as of this encounter Last Filed Vital Signs Vital Sign Reading Time Taken Comments Blood Pressure 122/78 04/18/2015 10:35 AM EST Pulse 68 04/18/2015 10:35 AM EST Temperature - - Respiratory Rate - - Oxygen Saturation - - Inhaled Oxygen Concentration - - Weight 70.3 kg (155 lb) 04/18/2015 10:35 AM EST Height 165.1 cm (5' 5) 04/18/2015 10:35 AM EST Body Mass Index 25.79 04/18/2015 10:35 AM EST documented in this encounter Progress Notes Josemanuel Chaves MD - 04/21/2015 5:14 PM EST The case was discussed with Dr Lamb at the time of the visit . The assessment and plan were formulated in discussion with me and I agree with them as documented. I have reviewed the history, physical exam, assessment and plan with the resident. Major issues discussed today: HRT- improved vasomotor sx, persistent sleep disruption Plan: SLeep hygeine reviewed. Pt desired sleep aid; declined trial of transdermal. JOSEMANUEL CHAVES MD Su Morales MD - 04/19/2015 11:50 AM EST Gynecology - Follow up Visit S: Tori is a 54 y.o. perimenopausal female who presents for follow up after initiating Femhrt three months ago. She states that her hot flashes have significantly improved over the past few months but notes minimal to no improvement in her sleep. She states she is continuously fatigued and cannot get more than 4-5 hours of sleep per night. She denies any caffeine intake at night. Notes some screen stimulation with television prior to bed. She has tried melatonin and benadryl with minimal effect. She denies any symptoms of sadness, decreased interest in hobbies, changes to eating habits. Denies any constipation, hair loss, sensitivity to hot/cold. O: Filed Vitals: 04/18/15 1035 BP: 122/78 Pulse: 68 Gen: well appearing, no acute distress CV: RRR, nl S1, S2, no murmurs Resp: clear to auscultation bilaterally Abdomen: non-tender to palpation Extremities: no calf tenderness A/P: Tori is a 54 y.o. postmenopausal female who presents for her follow up since initiating hormone replacement therapy. She has had alleviation in vasomotor symptoms such as hot flashes but continues to note sleep disturbances. -- Had an extensive discussion with the patient about sleep hygiene including reducing any stimulants such as caffeine and television. -- Informed the patient to continue taking Femhrt at night. Discussed options to transition to transdermal HRT however the patient elects to remain on Femhrt at this time. -- Will order TSH for evaluation of hypothyroidism -- Prescribed Ambien 5mg prn for insomnia -- Return to clinic for yearly breast/pelvic examination Patient was discussed with Dr. Chaves, attending physician. SU LAMB MD Medical Laboratory Technologist PGY-1 04/19/2015 documented in this encounter Plan of Treatment Not on filedocumented as of this encounter Procedures Procedure Name Priority Date/Time Associated Diagnosis Comme nts TSH Routine 04/18/2015 11:40 AM Annual physical exam Results for this EST procedure are i n the results section . documented in this encounter Results TSH (04/18/2015 11:40 AM EST) P athologist Signature TSH 1.30 0.27 - 4.20 CERNER mcIU/mL MILLENNIUM Specimen Anatomical Collection Method Collection Time Receive d Time (Source) Location / / Volume Laterality Blood specimen 04/18/2015 11:40 5 (specimen) AM EST 11:56 AM EST Resulting Agency Comment Spec In Lab Josemanuel Chaves MD CHEMISTRY ORDERABLES Performing Organization Address City/State/ZIP [place] [address] CERNER MILLENNIUM documented in this encounter Visit Diagnoses Diagnosis Annual physical exam Routine general medical examination at a health care facility documented in this encounter Care Teams Foil Spinner Relationship Specialty Start Date End Date Torres Sam DO PCP - General 12/22/13 12/25/[address] [place] [address] documented as of this encounter
--- OUTSIDE RECORDS SUMMARY | 2022-02-09 01:00 | XMS_ITS | Clinical Summary ---
:1960 Author Organization [facility] Address [address] [place] [address] Care Team Providers Name Role Phone None, Provider Primary Care Provider Unavailable Allergies No known active allergies Medications Medication Sig Dispensed Refills Start Date End Date Status LORazepam (ATIVAN) 1 mg Take 1 mg by 0 Active tablet mouth as needed for Anxiety. escitalopram oxalate Take 10 mg by 0 Active (LEXAPRO) 10 mg tablet mouth daily. Active Problems Problem Noted Date Retinal tear of right eye 12/20/2021 PVD (posterior vitreous detachment), right 12/20/2021 Encounters Date Type Specialty Care Team Description 02/02/2022 Office Visit Ophthalmology Royce Mena MD 01/10/2022 Office Visit Ophthalmology Royce Mena MD 12/29/2021 Office Visit Ophthalmology Royce Mena MD 12/28/2021 Telephone Ophthalmology Royce Mena Eye P roblem MD 12/23/2021 External Contact Ophthalmology Royce Mena V itreous hemorrhage of right eye ([facility] ([facility]) (Primary Dx); MD Retinal tear of right eye; PVD (posterior vitreous detachment), right 12/22/2021 Telephone Ophthalmology Royce Mena Eye P roblem MD 12/20/2021 Office Visit Ophthalmology Royce Mena MD from Last 3 Months Surgical History Surgery Date Site/Laterality Comments CYST REMOVAL BREAST REDUCTION SURGERY Family History Medical History Relation Name Comments Cataract Father Cancer Mother Cataract Mother Diabetes Neg Hx Glaucoma Neg Hx Macular Degeneration Neg Hx Retinal Detachment Neg Hx Stroke Neg Hx Relation Name Status Comments Father Mother Social History Tobacco Use Types Packs/Day Years Used Date Never Smoker Smokeless Tobacco: Never Used Alcohol Use Standard Drinks/Week Comments Yes 0 (1 standard drink = 0.6 oz pure alcoho l) Sex Assigned at Date Recorded Not on file Plan of Treatment Upcoming Encounters Date Type Specialty Care Team Description 04/11/2022 Office Visit Ophthalmology Wiliam Mena MD [address] [facility], [place], [address] [place], [place] [address] (Wo rk) Health Maintenance Due Date Last Done Comments Hepatitis C Screen 1960 COVID-19 Vaccine (#1) 1960 Procedures Procedure Name Priority Date/Time Associated Comments Diagnosis COLOR FUNDUS Routine 02/02/2022 12:33 Retinal tear of Results for this PHOTOGRAPHY - OD - EDT right eye procedure are in RIGHT EYE PVD (posterior the results vitreous section. detachment), rig ht Vitreous hemorrhage of right eye ([facility]) (HCC) REPAIR RETINAL Routine 12/20/2021 17:13 Retinal tear of Result s for this BREAKS, LASER - OD - EDT right eye procedu re are in RIGHT EYE the results section. from Last 3 Months Results COLOR FUNDUS PHOTOGRAPHY - OD - RIGHT EYE (02/02/2022 12:33 EDT) Specimen Narrative [facility] OPHTHALMOLOGY - 02/02/2022 12:33 E DT 30??. Macula. Progression has no prior data. Notes Blurry partially due to vit heme. Vit he me web poorly visualized Performing Organization Address City/State/ZIP Code Phon e Number [facility] OPHTHALMOLOGY REPAIR RETINAL BREAKS, LASER - OD - RIGHT EYE (12/20/2021 17:13 EDT) Specimen Narrative [facility] POINT OF CARE - 12/20/2021 17:13 E DT Tear locations include superior. Time Out Confirmed correct patient, procedure, si te, and patient consented. Anesthesia Topical anesthesia was used. Anesthetic medications included Proparacaine 0.5%. Laser Information The type of laser was argon. Color was g reen. The duration in seconds was 0.1. The spot size was (SUKHDEV) microns. La ser power was 400. Total spots was 602. Post-op The patient tolerated the procedure well . There were no complications. The patient received written and verbal post procedure care education. Performing Organization Address City/State/ZIP Code Phon e Number [facility] POINT OF CARE from Last 3 Months Insurance Payer Benefit Plan Subscriber ID Effective Phone Address Typ e / Group Dates MEDICAID ACO MEDICAID ACO [id number] 2019-Pres [phone] [address] Medicaid ACO [place] ent [address] [facility] [id number] [place] Personal/Family Self 1960 [address] (Home) [place] [address] [place] Personal/Family Self 1960 [address] (Home) [place] [address] Advance Directives For more information, please contact: [phone] Documents on File Type Date Recorded 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
--- OUTSIDE RECORDS SUMMARY | 2022-02-09 01:00 | XMS_ITS | Encounter Summary ---
:1960 Author Organization [facility] [place] [address] Care Team Providers Name Role Phone Unavailable Primary Care Provider Unavailable Encounter Details Date Type Department Care Team Description 11/10/2008 Hospital Encounter Radiology Library at Traci Braun, [place] [facility] [place] [place] [facility] [place] [address] DIAGNOSIC RADIOLOGY [phone] [place], [place] [address] (Wo rk) Social History Tobacco Use Types Packs/Day Years Used Date Never Assessed Sex Assigned at Date Recorded Not on file documented as of this encounter Medications at Time of Discharge Medication Sig Dispensed Refills Start Date End Date ibuprofen (MOTRIN) 800 mg 800M-2 Tablet(s), 0 05/08/2005 tablet PO, Once daily documented as of this encounter Plan of Treatment Not on filedocumented as of this encounter Procedures Procedure Name Priority Date/Time Associated Diagnosis Comme nts FILM LIBRARY Routine 11/10/2008 12:00 AM Screening Results for this STORAGE ONLY MAMMO EDT procedure are in the results section. documented in this encounter Results Film Library- Storage only Mammo (11/10/2008 12:00 AM EDT) Specimen (Source) Anatomical Location Collection Method / Collectio n Time Received Time / Laterality Volume Narrative MARCIO - 10/03/2015 1:53 PM EDT This exam is for storage only and is aut o-finalizing. Denys Braun MD Bhargav FILM LIBRARY ORDERABLES Performing Organization Address City/State/ZIP Code Phon e Number [place], [place] documented in this encounter Visit Diagnoses Diagnosis Screening Screening for unspecified condition documented in this encounter
--- OUTSIDE RECORDS SUMMARY | 2022-02-09 01:00 | XMS_ITS | Encounter Summary ---
:1960 Author Organization [facility] Address [address] [place] [address] Care Team Providers Name Role Phone Unknown, Provider Primary Care Provider Encounter Details Date Type Department Care Team Description 01/30/2013 Results Only [facility] Kvng Sam, DO Laboratory Services - [address] [place] [address] [address] [facility] [place], [place] [id number] [phone] Social History Tobacco Use Types Packs/Day Years Used Date Never Assessed Sex Assigned at Date Recorded Not on file documented as of this encounter Plan of Treatment Upcoming Encounters Date Type Specialty Care Team Description 04/11/2022 Office Visit Ophthalmology Wiliam Mena MD [address] [facility], [facility], [address] [place], [place] [address] (Wo rk) documented as of this encounter Procedures Procedure Name Priority Date/Time Associated Diagnosis Comme [facility] SURGICAL PATHOLOGY Routine 01/30/2013 6:57 EDT Re sults for this procedure are i n the results section. documented in this encounter Results SURGICAL PATHOLOGY (01/30/2013 6:57 EDT) Pathology Report: SURGICAL PATHOLOGY REPORT YOLETTE HAYES Reports generated via electronic interface contain mc ginal data; LAB however they are lacking the format of the original re port. Caution should be taken when reading/interpreting unfo rmatted reports. Name: ? ASHA, BRID GET A ? Accession #: ? [id number] ? : ? 1960 (Age: 53) ??F ? Collect Date: ? 01/30/2013 ? Location: ? [facility] ? Receive Date: ? 013 ? Provider: NÉSTOR SAM DO Copy to: ? Final Pathologic Diagnosis: SKIN OF THIGH, LEFT POSTERIOR, PUNCH BIOPSY: - Basal cell carcinoma, superficial multicentric type. - Basal cell carcinoma present at peripheral edge of p unch biopsy specimen. Microscopic Description: Emanating from the epidermis and extending into the papillary dermis are buds of atypical basal cells. ??The basal cells have scant cyt oplasm and round dark nuclei. ??Mitotic figures an d apoptotic bodies are evident. ??The nuclei at the periphery of the buds have a palisaded arrangeme nt. The superficial dermis is loose and, in some areas, there is retraction of the a typical cells from the stroma. ??(Dr. Vidal)/[facility] Document reviewed and electronically signed by: NATALIA VIDAL MD Report ??Date: 02/02/2013 16:11 By the signature above, the attending physician certif ies that he/she has personally conducted a gross and/or microscopic examin ation of the described specimens and rendered or confirmed the above diagnosi s. Specimen(s) Received: 2.0 mm punch Clinical History: Atypical skin nodule 5.0 mm L post. thigh Gross Description: ? Received in formalin labelled with proper patient identification (initials D, B) and left thigh is a punch biopsy of cunha skin (0.2 cm in diameter and 0.1 cm in thickness). ??There is an eccentric brown macule measuring 0.1 x 0.1 cm Submitted intact in cassette 1. Dr. Montoya 01/31/2013 09:34 AM End of Report Specimen Performing Organization Address City/State/ZIP Code Phon e Number [facility] [address] [place] [address] SERVICES [facility] [address] [place] [address] documented in this encounter Visit Diagnoses Not on filedocumented in this encounter Care Teams Professor Of Education Relationship Specialty Start Date End Date Unknown, Provider, PCP - General 10/29/12 02/02/13 documented as of this encounter
--- OUTSIDE RECORDS SUMMARY | 2022-02-09 01:00 | XMS_ITS | Encounter Summary ---
:1960 [place] [address] Care Team Providers Name Role Phone Torres Sam DO Primary Care Provider Encounter Details Date Type Department Care Team Description 10/03/2015 External Results [place]iology [place] [facility] [place] Provider, [place] [address] Social History Tobacco Use Types Packs/Day Years Used Date Never Smoker Smokeless Tobacco: Never Used Alcohol Use Standard Drinks/Week Comments Yes 1 (1 standard drink = 0.6 oz pure alcoho l) Sex Assigned at Date Recorded Not on file documented as of this encounter Plan of Treatment Not on filedocumented as of this encounter Procedures Procedure Name Priority Date/Time Associated Diagnosis Comme nts MAMMOGRAM SCAN Routine 02/26/2013 MAMMOGRAM SCAN Routine 11/10/2008 documented in this encounter Results Scan Doc: Mammogram (02/26/2013) Anatomical Region Laterality Modality Other Narrative This result has an attachment that is no t available. Scanning Provider MEDIA MGR SCAN EXT ORDR/RSLT Scan Doc: Mammogram (11/10/2008) Anatomical Region Laterality Modality Other Narrative This result has an attachment that is no t available. Scanning Provider MEDIA MGR SCAN EXT ORDR/RSLT documented in this encounter Visit Diagnoses Not on filedocumented in this encounter Care Teams Inside Trucker Relationship Specialty Start Date End Date Torres Sam DO PCP - General 12/22/13 12/25/[address] [place], [place] [address] documented as of this encounter
--- OUTSIDE RECORDS SUMMARY | 2022-02-09 01:00 | XMS_ITS | Encounter Summary ---
:1960 Author Organization [facility] Address [address] [place] [address] Care Team Providers Name Role Phone None, Provider Primary Care Provider Unavailable Reason for Visit Reason Comments Follow-up Encounter Details Date Type Department Care Team Description 02/02/2022 Office Visit [facility] Royce Mena, Ophthalmology - [address], [place] [address] (Wo rk) Social History Tobacco Use Types Packs/Day Years Used Date Never Smoker Smokeless Tobacco: Never Used Alcohol Use Standard Drinks/Week Comments Yes 0 (1 standard drink = 0.6 oz pure alcoho l) Sex Assigned at Date Recorded Not on file documented as of this encounter Progress Notes Royce Mena MD - 02/02/2022 1015 EDT Chief Complaint Patient presents with ??? Follow-up Comments Retinal tear right eye and vitreous hemorrhage right eye. S/p Laser to tear right eye 12/20/2021 HPI Location: Right eye Pain: Quality: Blurry Severity: Moderate Duration: Weeks Timing: Constant Lasts: Continuous Context: Retinal tear right eye and vitreous hemorrhage right eye. Modifying factors: S/p Laser to tear right eye 12/20/2021 Associated Signs & Symptoms: Vision is ok, things are not clear and not as bright as they use to. Eyes are straining and gets more headached. Has a few flaotesr and a little screen in her upper visoin. No new floaters, no flashes Visual Fluctuations: Floaters Attestation: Base Eye Exam Visual Acuity (Snellen - Linear) Right Left Dist cc 20/30 +1 20/20 -1 Correction: Glasses Tonometry (Applanation, 10:27) Right Left Pressure 15 16 Neuro/Psych Oriented x3: Yes Mood/Affect: Normal Dilation Right eye: Tropicamide 1%, Phenylephrine 2.5% @ 10:27 Slit Lamp and Fundus Exam Slit Lamp Exam Right Left Lids/Lashes Normal Conjunctiva/Sclera White and quiet Cornea Clear Anterior Chamber Deep and quiet Deep and quiet Iris Dilated Lens Nuclear sclerosis Vitreous Posterior vitreous detachment, residual hemorrhage and pigment in vitreous, sheet of vitreous hemorrhage covering macula area Fundus Exam Right Left Vessels Normal Periphery Retina attached with superior-temporal retinal tear over bridging vessel well surrounded with laser barricade. No new holes, tears or breaks Please refer to large retinal drawing. IMAGING: Color Fundus Photography - OD - Right Eye 30??. Macula. Progression has no prior data. Notes Blurry partially due to vit heme. Vit heme web poorly visualized IMPRESSION: 1. Retinal tear of right eye COLOR FUNDUS PHOTOGRAPHY - OD - RIGHT EYE 2. PVD (posterior vitreous detachment), right COLOR FUNDUS PHOTOGRAPHY - OD - RIGHT EYE 3. Vitreous hemorrhage of right eye (HCC-CMS) ([facility]) COLOR FUNDUS PHOTOGRAPHY - OD - RIGHT EYE PLAN: Retinal tear right eye S/p laser retinopexy to tear over briging vessel 12/20/2021 Well surrounded with laser barricade. No new holes, tear or breaks seen on scleral depressed exam Residual vitreous hemorrhage, much improved but still has a sheet of vitreous hemorrhage covering macula area. No fresh hemorrhage seen, Do believe that with her vision will continue to improve as the blood continue to resolve Patient is scheduled to see Dr. Cohen in a few weeks, will send over today's findings. Glasses update at that time? Posterior vitreous detachment right eye See above No new holes, tears or breaks seen Retinal detachment symptoms were reviewed with the patient. The patient was instructed to return forflashing lights, floaters in the vision, or curtaining of the vision. Attempted fundus photo to monitor status of premacular vit heme, poorly visualized. Follow up in 8 weeks or PRN I, Dr. Royce Mena, have performed my own HPI and reviewed the tech's ROS. I have also reviewed the patient's past medical, family, social and surgical history, as well as the patient's medications, allergies, and problem list. I am scribing for Dr. Royce Mena MD while he is personally performing the service. HAWK MCKINNON (Scribe) documented in this encounter Plan of Treatment Upcoming Encounters Date Type Specialty Care Team Description 04/11/2022 Office Visit Ophthalmology Wiliam Mena MD [address] [facility], [facility], [address] [place], [place] [address] (Wo rk) documented as of this encounter Procedures Procedure Name Priority Date/Time Associated Comments Diagnosis COLOR FUNDUS Routine 02/02/2022 12:33 Retinal tear of Results for this PHOTOGRAPHY - OD - EDT right eye procedure are in RIGHT EYE PVD (posterior the results vitreous section. detachment), rig ht Vitreous hemorrhage of right eye (HCC-CMS) (HCC) documented in this encounter Results COLOR FUNDUS PHOTOGRAPHY - OD - RIGHT EYE (02/02/2022 12:33 EDT) Specimen Narrative [facility] OPHTHALMOLOGY - 02/02/2022 12:33 E DT 30??. Macula. Progression has no prior data. Notes Blurry partially due to vit heme. Vit he me web poorly visualized Performing Organization Address City/State/ZIP Code Phon e Number [facility] OPHTHALMOLOGY documented in this encounter Visit Diagnoses Diagnosis Retinal tear of right eye - Primary PVD (posterior vitreous detachment), rig ht Vitreous hemorrhage of right eye (HCC-CM S) (HCC) Vitreous hemorrhage documented in this encounter Eye Exam Visual Acuity (Snellen - Linear) Right eye Left eye Dist cc 20/30 +1 20/20 -1 Correction: Glasses Tonometry (Applanation, 10:27) Right eye Left eye Pressure 15 16 Neuro/Psych Oriented x3: Yes Mood/Affect: Normal Dilation Right eye: Tropicamide 1%, Phenylephrine 2.5% @ 10:27 Slit Lamp Exam Right eye Left eye Lids/Lashes Normal Conjunctiva/Sclera White and quiet Cornea Clear Anterior Chamber Deep and quiet Deep and quiet Iris Dilated Lens Nuclear sclerosis Vitreous Posterior vitreous detachment, residual hemorrhage and pigment in vitreous, sheet of vitreo us hemorrhage covering macula area Fundus Exam Right eye Left eye Vessels Normal Periphery Retina attached with superior-temporal r etinal tear over bridging vessel well surrounded with laser barric stacey. No new holes, tears or breaks Care Teams Cap And Stud Machine Operator Relationship Specialty Start Date End Date None, Provider PCP - General 11/11/14 documented as of this encounter
--- OUTSIDE RECORDS SUMMARY | 2022-02-09 01:00 | XMS_ITS | Encounter Summary ---
:1960 Author Organization [facility] Address [address] [place] [address] Care Team Providers Name Role Phone None, Provider Primary Care Provider Unavailable Reason for Visit Reason Onset Date Comments Eye Problem 12/28/2021 Encounter Details Date Type Department Care Team Description 12/28/2021 Telephone [facility] Tolu Mena MD Eye Problem Ophthalmology - [facility] [address] [facility] [address] [place] [address] [address], [place], [place] [address] (Wo rk) Social History Tobacco Use Types Packs/Day Years Used Date Never Smoker Smokeless Tobacco: Never Used Alcohol Use Standard Drinks/Week Comments Yes 0 (1 standard drink = 0.6 oz pure alcoho l) Sex Assigned at Date Recorded Not on file documented as of this encounter Miscellaneous Notes Telephone Encounter - Odilon Lerma RN - 12/28/[address] Corbett, this is normal. Okay to follow up as scheduled. Called and spoke to patient. Reassured her this was normal and would take time to clear. She stated everything was very very blurry. Stated she needed to allow time to clear. She denies any other symptoms. Patient still concerns. She will see Dr Mena as planned tomorrow. Odilon Lerma RN 12/28/2021 11:38 elephone Encounter - Silvia Oconnor - 12/28/2021 1024 EDT Which Eye? Right Nature of problem? Can't see out of the right eye. Everything is blurry. She had the laser on Saturday and was seen on Saturday, and is scheduled for follow up tomorrow. Onset and Duration? Since having the laser procedure. Does it get better? Is there something wrong? She's going out of her mind! She's working and is very, very stressed and exhausted worrying about it. Please call her at work, she is there until 6 pm today. She'd like to hear back from someone today. documented in this encounter Plan of Treatment Upcoming Encounters Date Type Specialty Care Team Description 04/11/2022 Office Visit Ophthalmology Wiliam Mena MD [address] [facility], [facility], [address] [place], [place] [address] (Wo rk) documented as of this encounter Visit Diagnoses Not on filedocumented in this encounter Care Teams Liquid Compounder Relationship Specialty Start Date End Date None, Provider PCP - General 11/11/14 documented as of this encounter
--- OUTSIDE RECORDS SUMMARY | 2022-02-09 01:00 | XMS_ITS | Encounter Summary ---
:1960 Author Organization [facility] [place] [address] Care Team Providers Name Role Phone Torres Sam DO Primary Care Provider Reason for Visit Reason Onset Date Comments Follow-up 10/06/2015 Encounter Details Date Type Department Care Team Description 10/06/2015 Telephone General Surgery at [facility] Sandra Powell APRN Follow-[place] [address] GENERAL SURGERY [phone] [place], [place] [address] (Wo rk) Social History Tobacco Use Types Packs/Day Years Used Date Never Smoker Smokeless Tobacco: Never Used Alcohol Use Standard Drinks/Week Comments Yes 1 (1 standard drink = 0.6 oz pure alcoho l) Sex Assigned at Date Recorded Not on file documented as of this encounter Miscellaneous Notes Telephone Encounter - Sandra Powell APRN - 10/06/2015 8:21 AM EDT I called Tori to discuss follow up after her breast imaging was performed which showed benign findings. She has not had any more episodes of bloody nipple discharge. She is reassured by this and I am recommending that I re examine her in a couple of months. She declines a follow up appointment at this time but she does agree to monitor her breast exam/symptoms and will call me if she has any more bloody nipple discharge or new breast symptoms Based on her average moderate high risk status, I am recommending a mammogram in one year or sooner if needed. documented in this encounter Plan of Treatment Not on filedocumented as of this encounter Visit Diagnoses Not on filedocumented in this encounter Care Teams Carbon Setter Relationship Specialty Start Date End Date Torres Sam DO PCP - General 12/22/13 12/25/[address] [place] [address] documented as of this encounter
--- OUTSIDE RECORDS SUMMARY | 2022-02-09 01:00 | XMS_ITS | Encounter Summary ---
:1960 Author Organization [facility] [place] [address] Care Team Providers Name Role Phone Torres Sam DO Primary Care Provider Encounter Details Date Type Department Care Team Description 11/09/2014 Hospital Encounter Radiology Library at Traci Braun, [place] [facility] [place] [address] DIAGNOSIC RADIOLOGY [phone] [place], [place] [address] (Wo rk) Social History Tobacco Use Types Packs/Day Years Used Date Unknown If Ever Smoked Sex Assigned at Date Recorded Not on file documented as of this encounter Medications at Time of Discharge Medication Sig Dispensed Refills Start Date End Date clonazePAM (KLONOPIN) 0.5 Take 0.5 mg by mouth 0 mg Tablet 2 times daily as needed. ibuprofen (MOTRIN) 800 mg 800M-2 Tablet(s), 0 05/08/2005 tablet PO, Once daily documented as of this encounter Plan of Treatment Not on filedocumented as of this encounter Procedures Procedure Name Priority Date/Time Associated Diagnosis Comme nts FILM LIBRARY Routine 11/09/2014 12:00 AM Screening Results for this STORAGE ONLY MAMMO EDT procedure are in the results section. documented in this encounter Results Film Library- Storage only Mammo (11/09/2014 12:00 AM EDT) Specimen (Source) Anatomical Location Collection Method / Collectio n Time Received Time / Laterality Volume Narrative [facility] - 10/03/2015 1:57 PM EDT This exam is for storage only and is aut o-finalizing. Denys Braun MD IMG FILM LIBRARY ORDERABLES Performing Organization Address City/State/ZIP Code Phon e Number [facility] [place], [place] documented in this encounter Visit Diagnoses Diagnosis Screening Screening for unspecified condition documented in this encounter Care Teams Event Technician Relationship Specialty Start Date End Date Torres Sam DO PCP - General 12/22/13 12/25/[address] [place] [address] documented as of this encounter
--- OUTSIDE RECORDS SUMMARY | 2022-02-09 01:00 | XMS_ITS | Encounter Summary ---
:1960 Author Organization [facility] Address [address] [place] [address] Care Team Providers Name Role Phone Torres Sam DO Primary Care Provider Encounter Details Date Type Department Care Team Description 10/03/2015 Hospital Encounter Mammography at [facility] Yolande Pacheco, Breast lump [facility] [place] [address] [facility] [phone] GENERAL SURGERY [place], [place] [address] (Wo rk) Social History Tobacco [...] (AMBIEN) 5 mg Take 1 tablet by 30 tablet 0 015 Tablet mouth nightly as needed for Sleep. carbidopa-levodopa Take 1 tablet by 0 (SINEMET) 25-100 mg mouth nightly. Tablet Reported on 04/03/2016 clonazePAM (KLONOPIN) Take 0.5 mg by mouth 0 0.5 mg Tablet 2 times daily as needed. ibuprofen (MOTRIN) 800 800M-2 Tablet(s), 0 mg tablet PO, Once daily norethindrone-ethinyl Take 1 tablet by 30 tablet 11 01/18/20 15 04/03/2016 estradiol (FEMHRT LOW mouth daily. DOSE) 0.5-2.5 mg-mcg TabletIndications: [facility] documented as of this encounter Plan of Treatment Not on filedocumented as of this encounter Procedures Procedure Name Priority Date/Time Associated Diagnosis Comme nts MAMMO BREAST US Routine 10/03/2015 2:26 PM Breast lump Result s for this LIMITED LEFT EDT procedure are i n the results section. documented in this encounter Results Mammo Breast Us Limited Left (10/03/2015 2:26 PM EDT) Anatomical Region Laterality Modality Breast Left Mammography Specimen (Source) Anatomical Location Collection Method / Collectio n Time Received Time / Laterality Volume Impressions 10/03/2015 4:17 PM EDT No mammographic or left breast ultrasound evidence of malignancy. Clinical follow-up is advised. Breast MR I may be useful if this persists as a clinical concern. The patient was advise d to follow-up with the nurse practitioner for further instruction. BI-RADS Category 2: Benign Findings Narrative 10/03/2015 4:17 PM EDT EXAMINATION: BILATERAL BREAST(S) DIAGNOSTIC MAMMOGRAM INDICATION: left nipple mass and dischar ge. ??Medial aspect left nipple TECHNIQUE: CC and MLO views were obtained of each b reast. Spot compression magnification CC and spot compression magnification true lateral views were obtained of the retroareolar region of the left breast. 2-D and 3- D tomosynthesis images were obtained. Computer aided detection was u sed. Additionally, I performed ultrasound of the left retroareolar erin on. COMPARISON: This study was compared with prior image s. FINDINGS: There are scattered areas of fibroglandu lar density. There are no suspicious masses, suspicious microcalcifications, or areas of architectural distortion. Left breast ultrasound: I performed high -resolution ultrasound of the left retroareolar region and fail to demonstr ate any abnormal ductal system or lesion to suggest papilloma or intraductal abno rmality. Yolande Pacheco MD IMG MAMMO ORDERABLES documented in this encounter Visit Diagnoses Diagnosis Breast lump Lump or mass in breast documented in this encounter Care Teams Sensor Operator Relationship Specialty Start Date End Date Torres Sam DO PCP - General 12/22/13 12/25/[address] [place] [address] documented as of this encounter
--- OUTSIDE RECORDS SUMMARY | 2022-02-09 01:00 | XMS_ITS | Encounter Summary ---
:1960 Author Organization [facility] Address [address] [place] [address] Care Team Providers Name Role Phone None, Provider Primary Care Provider Unavailable Reason for Visit Reason Comments Eye Problem Encounter Details Date Type Department Care Team Description 12/29/2021 Office Visit [facility] Royce Mena, Ophthalmology - [address], [place] [address] (Wo rk) Social History Tobacco Use Types Packs/Day Years Used Date Never Smoker Smokeless Tobacco: Never Used Alcohol Use Standard Drinks/Week Comments Yes 0 (1 standard drink = 0.6 oz pure alcoho l) Sex Assigned at Date Recorded Not on file documented as of this encounter Progress Notes Royce Mena MD - 12/29/2021 0800 EDT Chief Complaint Patient presents with ??? Eye Problem Comments ERV: Pt report right eye VA is blurrier. Can not see much. No flashes. Same floaters. No veil or shade. Occ'l pain. Left eye is tired. HPI Location: Right eye Pain: 0 - No pain Quality: Blurry Severity: Moderate Duration: Days Timing: Constant Lasts: Continuous Context: ERV: Pt report right eye VA is blurrier. Can not see much. No flashes. Same floaters. No veil or shade. Occ'l pain. Left eye is tired. Modifying factors: left eye vision unchanged - does wear glasses for distance and near Associated Signs & Symptoms: Blurrier VA right eye. Using AT's PRN Visual Fluctuations: Floaters Attestation: Base Eye Exam Visual Acuity (Snellen - Linear) Right Left Dist cc CF at 3' 20/25 -2 Correction: Glasses Tonometry (Applanation, 8:07) Right Left Pressure 15 15 Pupils Pupils Dark Shape React APD Right PERRL 6 Round Brisk - Left PERRL 6 Round Brisk - Neuro/Psych Oriented x3: Yes Dilation Both eyes: Tropicamide 1%, Phenylephrine 2.5% @ 8:08 Slit Lamp and Fundus Exam Slit Lamp Exam Right Left Anterior Chamber Deep and quiet Deep and quiet Please refer to large retinal drawing. IMAGING: IMPRESSION: 1. Vitreous hemorrhage of right eye (HCC-CMS) (HCC) 2. Retinal tear of right eye 3. PVD (posterior vitreous detachment), right PLAN: Vitreous hemorrhage right eye Due to bridging vessel on treated horseshoe tear No untreated breaks or retinal detachment seen on good view of periphery. Retinal detachment symptoms were reviewed with the patient. The patient was instructed to return immediately for flashing lights, floaters in the vision, or curtaining of the vision. Sleep with head elevated. If no improvement, may consider pars plana vitrectomy ?? Horseshoe tear right eye S/p Laser PVD- right No new holes or tears F/u in 2 weeks I, Dr. Royce Mena, have performed my own HPI and reviewed the [facility]'s ROS. I have also reviewed the patient's past medical, family, social and surgical history, as well as the patient's medications, allergies, and problem list. I am scribing for Dr. Royce Mena MD while he is personally performing the service. HAWK PIZANO (Scribe) documented in this encounter Plan of Treatment Upcoming Encounters Date Type Specialty Care Team Description 04/11/2022 Office Visit Ophthalmology Wiliam Mena MD [address] [facility], [facility], [address] [place], [place] [address] (Wo rk) documented as of this encounter Visit Diagnoses Diagnosis Vitreous hemorrhage of right eye (HCC-CM S) (HCC) Vitreous hemorrhage Retinal tear of right eye PVD (posterior vitreous detachment), rig ht documented in this encounter Eye Exam Visual Acuity (Snellen - Linear) Right eye Left eye Dist cc CF at 3' 20/25 -2 Correction: Glasses Tonometry (Applanation, 8:07) Right eye Left eye Pressure 15 15 Pupils Pupils Dark Shape React APD Right eye PERRL 6 Round Brisk - Left eye PERRL 6 Round Brisk - Neuro/Psych Oriented x3: Yes Mood/Affect: Normal Dilation Both eyes: Tropicamide 1%, Phenylephrine 2.5% @ 8:08 Slit Lamp Exam Right eye Left eye Lids/Lashes Normal Normal Conjunctiva/Sclera White and quiet White and quiet Cornea Clear Clear Anterior Chamber Deep and quiet Deep and quiet Iris Round and reactive Round and reactive Lens Nuclear sclerosis Nuclear sclerosis Vitreous moderate vh, dense centrally Fundus Exam Right eye Left eye Disc obscured Macula obscured Vessels Normal Periphery cobblestone inferior , HST with bridging vessel, well-surrounded by laser. No untreated breaks. No retina l detachment on 360 SD exam, view to periphery preserved Care Teams Cell Feed Department Supervisor Relationship Specialty Start Date End Date None, Provider PCP - General 11/11/14 documented as of this encounter
--- OUTSIDE RECORDS SUMMARY | 2022-02-09 01:00 | XMS_ITS | Encounter Summary ---
:1960 Author Organization [facility] [place] [address] Care Team Providers Name Role Phone Torres Sam DO Primary Care Provider Reason for Visit Reason Comments Breast Mass Consultation (Routine) - Closed Specialty Diagnoses / Procedures Referred By Contact Refer red To Contact General Surgery Diagnoses Left breast mass Libby Cintron, Sandra Powell, [facility] ENGINEER TECHNICIAN [address] [place], [place] GENERAL SURG [place]AN [address] [address] [place] [address] Fax: Referral ID Status Reason Start Date Expiration Date Visits Requ ested Visits Authorized [id number] Closed 09/20/2015 09/19/2016 1 1 Encounter Details Date Type Department Care Team Description 10/03/2015 Office Visit General Surgery at [facility] Sandra Powell, Breast mass [facility] krunal [place] [address] [place] [address] GENERAL SURGERY [place], [place] [address] (Wo rk) Social History Tobacco Use Types Packs/Day Years Used Date Never Smoker Smokeless Tobacco: Never Used Alcohol Use Standard Drinks/Week Comments Yes 1 (1 standard drink = 0.6 oz pure alcoho l) Sex Assigned at Date Recorded Not on file documented as of this encounter Last Filed Vital Signs Vital Sign Reading Time Taken Comments Blood Pressure 117/74 10/03/2015 1:04 PM EDT Pulse 88 10/03/2015 1:04 PM EDT Temperature - - Respiratory Rate 16 10/03/2015 1:04 PM EDT Oxygen Saturation 100% 10/03/2015 1:04 PM EDT Inhaled Oxygen Concentration - - Weight - - Height - - Body Mass Index - - documented in this encounter Progress Notes Sandra Powell, ENGINEER TECHNICIAN - 10/03/2015 1:06 PM EDT Ms. Lopez is a 55 y.o. year-old patient who I am seeing at the request of Caitlin Cintron [facility] evaluate an episode of bloody discharge from her left nipple. 2 weeks ago she noticed a black mass on the tip of her left nipple.She then experienced spontaneous bloody nipple discharge from the nipple.The black mass is gone but there remains a fullness over the nipple with some shadowing. She denies any skin changes, new breast masses, breast trauma or prior breast surgery. Imaging performed ( bilateral mammogram)at [facility] on 10/2014 was interpreted as Category 1. She is scheduled for breast imaging later today. She does not have a history of cystic breast tissue and has not had cysts aspirated or breast biopsies in the past. She does occasional self-breast exams. Weight stable. She has no new or concerning complaints of fatigue, cardiovascular or respiratory symptoms. All other ROS are negative. Reproductive History: , had her first child at the age of 27 and did nurse her child. Menarche began at 12.Her LMP was 8 months ago. HRT/OC:none Family History: Negative for breast or ovarian cancer. 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 She does not smoke. Past Medical History: Noncontributory. Past Surgical History: reduction mammoplasty Physical Exam: She looks well and is in no apparent distress. Her skin is anicteric with good turgor. Sclera are anicteric. Her head and neck are without masses or adenopathy. Her arms have good ROM without any evidence of lymphedema. Her breasts are symmetric. Her nipples are everted. There is no axillary adenopathy on the right or the left. There are no skin changes or dimpling noted in either breast. The left breast is notable for generally homogenous breast tissue,without discrete masses. On the nipple there is an area of fullness with dark shadowing underneath ( vesicle/blood blister). No masses,no nipple discharge. Her right breast exam is similar in character to her left breast,without discrete masses. Very subtle and smaller similar finding on the right nipple. Assessment: Clinical breast exam notable for fibrocystic breast tissue without discrete breast masses.History of bloody nipple discharge on the left possibly related to unrecognized breast trauma,with trapped blood under the skin,an Intraductal papilloma or a malignancy. Will further work up with imaging. Plan: I have discussed my assessment and recommendations with Ms. Lopez to include occasional self-breast exams and annual clinical breast exams. I will call her after her breast imaging which will be done later today to further evaluate finding on physical exam. Surgical follow up based on outcome of imaging. Ms. Lopez agrees to this plan. TORRES SAM DO documented in this encounter Plan of Treatment Not on filedocumented as of this encounter Visit Diagnoses Diagnosis Breast mass Lump or mass in breast documented in this encounter Care Teams Board Certified Arts Therapist Relationship Specialty Start Date End Date Torres Sam DO PCP - General 12/22/13 12/25/[address] [place] [address] documented as of this encounter
--- OUTSIDE RECORDS SUMMARY | 2022-02-09 01:00 | XMS_ITS | Encounter Summary ---
:1960 Author Organization [facility] [place] [address] Care Team Providers Name Role Phone Torres Sam DO Primary Care Provider Reason for Visit Reason Onset Date Comments Questions 01/26/2015 Encounter Details Date Type Department Care Team Description 01/26/2015 Telephone Obstetrics and Gynecology at Selena Orellana, Questions [facility] [place] [address] Social History Tobacco Use Types Packs/Day Years Used Date Never Smoker Alcohol Use Standard Drinks/Week Comments Yes 1 (1 standard drink = 0.6 oz pure alcoho l) Sex Assigned at Date Recorded Not on file documented as of this encounter Miscellaneous Notes Telephone Encounter - Selena Orellana RN - 01/26/2015 11:21 AM EDT Addednum: Patient is calling back. She is had started on the Fem HRT last week. She has been having increased hot flashes and is unable to sleep, so she is exhausted. She wakes up soaked in the night. She is asking if there is another medication that would help decrease these episodes or if there is anything else she can take along with the medication. Advised I will send a message to Dr Avila. Advised her she will not be in the clinic until afternoon. Telephone Encounter - Selena Orellana RN - 01/26/2015 11:09 AM EDT TELEPHONE NOTE Caller: Selena Orellana RN Reason for call: Returning patient's call. She has questions about estrogen/progesterone- FemHRT lowdose that she just began taking . Plan/Instructions: Message left advising patient to call back to the clinic. documented in this encounter Plan of Treatment Not on filedocumented as of this encounter Visit Diagnoses Not on filedocumented in this encounter Care Teams Bellman Captain Relationship Specialty Start Date End Date Torres Sam DO PCP - General 12/22/13 12/25/[address] [place] [address] documented as of this encounter
--- OUTSIDE RECORDS SUMMARY | 2022-02-09 01:00 | XMS_ITS | Encounter Summary ---
:1960 Author Organization [facility] Address [address] [place] [address] Care Team Providers Name Role Phone None, Provider Primary Care Provider Unavailable Encounter Details Date Type Department Care Team Description 03/15/2020 Lab Requisition [facility] Ayala García for other Pathology & MD Kate general examination Laboratory Medicine - [address] [facility] [address] [place], [place] [address] [facility] [address] [place], [place] [id number] Social History Tobacco Use Types Packs/Day Years Used Date Never Assessed Sex Assigned at Date Recorded Not on file documented as of this encounter Discharge Disposition Disposition Code Departure Means Destination Home or Self Long-Term documented in this encounter Plan of Treatment Upcoming Encounters Date Type Specialty Care Team Description 04/11/2022 Office Visit Ophthalmology Wiliam Mena MD [address] [facility], [facility], [address] [place], [place] [address] (Wo rk) documented as of this encounter Procedures Procedure Name Priority Date/Time Associated Diagnosis Comme nts COVID-19 TEST [facility] Today 03/15/2020 8:45 EST Encounter for other LAB PCR general examination COVID-19 TESTING Today 03/15/2020 8:45 EST Encounter for oth er Results for this general examination procedur e are in the results section. documented in this encounter Results COVID-19 TEST [facility] LAB PCR (03/15/2020 8:45 EST) Specimen Swab - Entire nasopharynx (body structur e) Performing Organization Address City/State/ZIP Code Phon e Number [facility] [address] [place] [address] SERVICES COVID-19 TESTING (03/15/2020 8:45 EST) COVID-19 rt-PCR Negative Negative [facility] Result Comment: [facility] Negative results do not prec lude 2019-nCoV infection and should not be used as the sole basis for treatment or other patient management decisions. Negative results must be combined with clinical observa SERVICES tions, patient history, and epidemiological informatio n. This test was developed and its performance characteristics determined by [facility]. It has not been cleared or approved by the [place] Food and Drug Administration. FDA does not require this test to go through premarket FDA review. This t est is used for clinical purposes. It should not be regarded as investigational or for research. This laboratory is certified under the Clinical Laboratory Improvement Amendm ents (CLIA) as qualified to perform high complexity clinical laboratory testing. This test is based on the CD C COVID-19 Emergency Use Authorization (EUA) assay, with minor modification as defined by the FDA Performed on the Gelesis 7 Flex . Performing Lab [facility] Hospital Lab [facility] SERVICES Specimen Swab - Entire nasopharynx (body structur e) Performing Organization Address City/State/ZIP Code Phon e Number [facility] [address] [place] [address] SERVICES documented in this encounter Visit Diagnoses Diagnosis Encounter for other general examination documented in this encounter Care Teams Flow Nurse Relationship Specialty Start Date End Date None, Provider PCP - General 11/11/14 documented as of this encounter
--- OUTSIDE RECORDS SUMMARY | 2022-02-09 01:00 | XMS_ITS | Encounter Summary ---
:1960 Author Organization [facility] Address [address] [place] [address] Care Team Providers Name Role Phone None, Provider Primary Care Provider Unavailable Reason for Visit Reason Onset Date Comments Eye Problem 12/22/2021 Encounter Details Date Type Department Care Team Description 12/22/2021 Telephone [facility] Tolu Mena MD Eye Problem Ophthalmology - [facility] [address] [facility] [address] [place], [place] [id number] [place] [address], [place], [place] [address] (Wo rk) Social History Tobacco Use Types Packs/Day Years Used Date Never Smoker Smokeless Tobacco: Never Used Alcohol Use Standard Drinks/Week Comments Yes 0 (1 standard drink = 0.6 oz pure alcoho l) Sex Assigned at Date Recorded Not on file documented as of this encounter Miscellaneous Notes Telephone Encounter - Sandra Nam - 12/22/2021 1611 EDT Pt called back message was relayed and pt understood. elephone Encounter - Odilon eLrma RN - 12/22/2021 1604 EDT LMOM asking patient to call back. Please relay message. Odilon Lerma RN 12/22/2021 16:04 elephone Encounter - Royce Mena MD - 12/22/2021 1603 EDT Can definitely use artificial tears for foreign body sensation. Sleeping upright is mainly to help blood settle to bottom of eye to help floaters drift out of her vision. But I don't feel strongly that she must do this since her vision is fairly preserved. I'm not sure what google was suggesting was the purported benefit of side sleeping. I don't have any problem with her sleeping on either side. elephone Encounter - Odilon Lerma, RN - 12/22/2021 1526 EDT Called patient. She had laser 12/20. Patient would like to know if she can sleep in a recliner with her head elevated? She goggled that she should sleep on her side. She did FBS. But this has resolved. Everything else is fine.no concerns. Odilon Lrema RN 12/22/2021 15:30 elephone Encounter - Sandra Nam - 12/22/2021 1506 EDT Which Eye? right Nature of problem? Pt had laser and she has been sleeping in her recliner. Pt said today she said she feels like there is something at the bottom of her eye, like a piece of dirt. Pt would like to knowif she should sleep on her side, she googled it and they said to sleep on her side.. PCB to discuss Onset and Duration? 1 PM today Is this an injury or trauma? Are you having pain? Describe the type of pain you are having (sharp, dull, etc) If yes, please rate pain on scale 0-10? Have you had any recent surgery? Laser 12.20.21 Do you have establish eye care? With who? Did you call them? If yes, do you have appointment with them? Are the notes being faxed over? documented in this encounter Plan of Treatment Upcoming Encounters Date Type Specialty Care Team Description 04/11/2022 Office Visit Ophthalmology Wiliam Mena MD [address] [facility], [facility], [address] [place], [place] [address] (Wo rk) documented as of this encounter Visit Diagnoses Not on filedocumented in this encounter Care Teams Flight Nurse Relationship Specialty Start Date End Date None, Provider PCP - General 11/11/14 documented as of this encounter
--- OUTSIDE RECORDS SUMMARY | 2022-02-09 01:00 | XMS_ITS | Encounter Summary ---
:1960 Author Organization [facility] [place] [address] Care Team Providers Name Role Phone Torres Sam DO Primary Care Provider Reason for Visit Reason Comments Annual Exam Encounter Details Date Type Department Care Team Description 04/03/2016 Office Visit Obstetrics and Belkis Samaniego, History o f abnormal cervical Pap smear; Gynecology at [facility] BIOSOLIDS MANAGEMENT TECHNICIAN Encounter for gynecological examination without abnormal finding [facility] & [id number] GYNECOLOGY [phone] [place], [place] [address] Social History Tobacco Use Types [...] ??F) 04/03/2016 1:59 PM EST Respiratory Rate - - Oxygen Saturation 97% 04/03/2016 1:59 PM EST Inhaled Oxygen Concentration - - Weight 70.7 kg (155 lb 12.8 oz) 04/03/2016 1:59 PM EST Height 164.7 cm (5' 4.84) 04/03/2016 1:59 PM EST Body Mass Index 26.05 04/03/2016 1:59 PM EST documented in this encounter Progress Notes Belkis Samaniego, BIOSOLIDS MANAGEMENT TECHNICIAN - 04/03/2016 2:00 PM EST Reason for visit: Annual dray driver exam ROS: INFORMATION CLERK [employer]: no dray driver concerns. Is feeling stressed; her dad just and did not leave her mother in a financially sound place, she is short on her monthly bills and pt helps cover this. Pt daughter has 4young children and calls on her regularly to watch them. Pt has hard time saying no. Pt also has [employer] business and works 60 hrs a week. She is in a good relationship and states her partner treats her like a galvan. She became teary when talking about the above. Past Medical History Diagnosis Date ??? Anxiety ??? Carpal tunnel syndrome Past Surgical History Procedure Laterality Date ??? Breast reduction surgery 20 years ago ??? 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 Per Dr Avila's note from last yr: The records from outside hospitals show the followed: 11/07/2008 - ASC-US and HPV high-risk positive 12/03/2012 - ASC-US and HPV high-risk positive 10/14/2014 - ASC-US and HPV high-risk negative 11/09/14 - colposcopy without biopsy, pap smear negative, HPV high-risk negative, ECC showed small fragment of superficial, atypical squamous epithelium. This focus is only present on two levels of tissue in the deeper sections. A definitive diagnosis cannot be rendered due to the limited tissue, and i mmunohistochemical staining is not possible.. 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 She had an ECC performed here 12/2014 which was negative. She is being seen by [facility] Ocon[facility] as she has been able to express green nipple d/c with a foul odor. Last year this also occurred, was seen by Ms. Sherry APRN, breast mammogram and breast US of which was normal. LMP August or September of 2014 Family History Problem Relation Age of Onset ??? Heart Disease Mother afib ??? Myocardial Infarction Father 78 COPD ??? Breast Cancer Neg Hx Social History Social History ??? Marital status: Single Spouse name: N/A ??? Number of children: N/A ??? 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 Smoking status: Never Smoker ??? Smokeless tobacco: Never Used ??? Alcohol use 0.6 oz/week 1 Standard drinks or equivalent per week ??? Drug use: No ??? Sexual activity: Yes Partners: Male control/ protection: Post-menopausal Other Topics Concern ??? Abuse Or Threat: Physical, Sexual, Verbal No ??? Alcohol/Drug Concern No ??? Exercise Yes ??? Seat Belt Yes Social History Narrative In a relationship x 2 yrs. Feels stressed; working 60 hrs a week, watches daughters 4 children, helping her mom financially as her dad just . Outpatient Prescriptions Marked as Taking for the 04/03/16 encounter (Office Visit) with Belkis Samaniego APRN Medication Sig Dispense Refill ??? carbidopa-levodopa (SINEMET) 25-100 mg Tablet Take 1 tablet by mouth nightly. Reported on 04/03/2016 ??? clonazePAM (KLONOPIN) 0.5 mg Tablet Take 0.5 mg by mouth 2 times daily as needed. ??? ibuprofen (MOTRIN) 800 mg tablet 800M-2 Tablet(s), PO, Once daily (Patient taking differently: 800M-2 Tablet(s), PO, Once daily prn) Allergies as of 04/03/2016 ??? (No Known Allergies) BP 106/73 Pulse 81 Temp 36.5 ??C (97.7 ??F) Ht 164.7 cm (5' 4.84) Wt 70.7 kg (155 lb 12.8 oz) SpO2 97% BMI 26.05 kg/m2 PHYSICAL EXAM: Thyroid: Smooth, symmetrical Lungs- Clear Heart- HRR Abdomen- Without masses or tenderness Pelvic exam- [] External Genitalia- pink, without lesions Urethral meatus- without masses or lesions Vagina- pink, no abn d/c Cervix- pink, no suspicious lesions, normal d/c, Cervix visualized, pap smear specimen collected w/cytobrush, placed in preservative and sent to cytology. Cervix stenosed. Unable to go into endocervical canal Uterus- a/v, without masses, normal size and contour [place]- without masses Rectovaginal exam- confirms, good tone, no hemorrhoids A: Unremarkable dray driver exam Depression Hx abnormal Pap Abnormal nipple d/c P: Pap pending Pt is seeing a counselor. May consider antidepressant/anxiolytic. We discussed ways she can decrease the stress in her life, work on boundary setting, being ok with giving herself permission to say marcus others, having others take responsibility for their own lives, etc Appt in [facility] today documented in this encounter Plan of Treatment Not on filedocumented as of this encounter Procedures Procedure Name Priority Date/Time Associated Comments Diagnosis HPV Routine 04/03/2016 4:14 PM Results f or this EST procedure are i n the results section. INFORMATION CLERK [employer] CYTOLOGY Routine 04/03/2016 4:14 PM Results f or this INTERPRETATION EST procedure are in the results section. INFORMATION [employer] CYTOLOGY FINAL Routine 04/03/2016 4:14 PM Res ults for this REPORT EST procedure are i n the results section. CYTOPATHOLOGY Routine 04/03/2016 4:14 PM History of Results for this GYNECOLOGICAL EST abnormal cervical procedure are in Pap smear the results section. documented in this encounter Results INFORMATION CLERK [employer] Cytology Interpretation (04/03/2016 4:14 PM EST) [facility] Method Time Signature Railroad Signal And Switch Operator Cytology NILM [facility] Comment: Railroad Signal And Switch Operator Cytology Final Report Acces shelby: [id number] Railroad Signal And Switch Operator Cytology Comment Present [facility] Endocervical Component Present [facility] Specimen Anatomical Collection Method Collection Time Receive d Time (Source) Location / / Volume Laterality AP Specimen 04/03/2016 4:14 PM 6 3:47 EST PM EST Belkis Samaniego APRN PATHOLOGY/CYTOLOGY ORDERABLE S Performing Organization Address City/State/[place] [address] Railroad Signal And Switch Operator Cytology Final Report (04/03/2016 4:14 PM EST) Component Value Ref Test Analysis Performed At [facility] Range Method Time Signature Railroad Signal And Switch Operator Cytology [id number] ?Location: 5L [facility] Final [facility] The signing pathologist has (i) examined the relevant preparation(s) for the [facility] specimen(s) and (ii) rendered or confirmed the diagnosis(es) . HOSPITAL LABORATORY . ? Railroad Signal And Switch Operator Final DIAGNOSIS Normal Negative for Intraepithelial Lesion or Malignancy (NILM). For consensus guidelines for the management of c ervical cancer screening test results, please see: ?? http://www.asccp.org/guidelines . Electronically signed by: ??Juan FUENTES(ASCP), Jojo Asencio Verified: ??04/13/2016 ?Ship Joiner DISCUSSION Inflammation. HPV RESULTS HPV16 (Result) ?NEGATIVE HPV18 (Result) ?NEGATIVE HPVOHR (Result) ? NEGATIVE HPV (Interpretation) ?See Below HPV (Interpretation) Text: NEGATIVE for high-risk HPV *. *Testing negative for high risk HPV means that the specimen is negative for the following 14 types tested: types 16, 18, 31, 33, 35 , 39, 45, 51, 52, 56, 58, 59, 66, and 68. The test is not intended to detect low risk HPV types. Deja susan HPV test Specimen: HPV Testing - Cytology Liquid Based Prep The Deja susan ? HPV petey t was validated, performed and results reported through the Laboratory for Clinical Gen omics and Advanced Technology (CGAT) at [facility]. ? - Dedrick Peraza, PhD, [facility], Director-[facility] STATEMENT OF ADEQUACY Specimen submitted is satisfactory. Endocervical component present. CLINICAL INFORMATION HPV Option: ?Concurrent HPV and Pap Preparation: ? Liquid based Pap Specimen Source: ? Cervical/Endocervical LMP: ? n/a Hormones?: ? No Hysterectomy?: ? No ?: ? No ?: ? Yes I.U.D.?: ? No Pelvic Radiation: ?No Prior INFORMATION CLERK [employer] Therapy?: ?No Hist Abnl Pap/Biopsy?: ?? Yes, history of previous abnormal Pap Hist of HPV Vaccine?: ?No Hist of Smoking?: ?No Hist of CHANDA exposure?: ?? No ICD Diagnosis: ? Z12.4 Encounter for screening for malignant neoplasm of cervix . CLINICAL INFORMATION Clinical Data, Significant Therapy and Clinical Impression ? ? : ?_ This Pap Test has been evalu ated with the assistance of the BrightleafPrep Pap Test Imaging System. Note: The Pap test is a screening test for cervical cancer with an inherent false-negative rate dependent upon several variables. ??For further information please contact the [facility] Laboratory. Reference: ??Duke BUNN. ? ?Lens Examiner of Pap Smear Results. ??In: ??Shankar BS, Stephen HH, ed. ??The Pap Smear. ??[place]: ??Ben, 20 02: ??71-77. Specimen (Source) Anatomical Collection Method Collection Time Re ceived Time Location / / Volume Laterality 04/03/2016 4:14 PM EST Belkis Samaniego APRN PATHOLOGY/CYTOLOGY ORDERABLE S Performing Organization Address City/State/[place] [address] HPV (04/03/2016 4:14 PM EST) [facility] Method Time Signature HPV 16 NEGATIVE NEGATIVE [facility] HPV 18 NEGATIVE NEGATIVE [facility] HPV Other HR NEGATIVE NEGATIVE [facility] HPV See Comment [facility] Interpretation [facility] Comment: NEGATIVE for high-risk HPV *. * Testing negative for high risk HPV kee ns that the specimen is negative for the following 14 types tested: ??types 1 6, 18, 31, 33, 35, 39, 45, 51, 52, 56, 58, 59, 66, and 68. ??The test is not in tended to detect low risk HPV types. Deja Susan HPV test Specimen: HPV Testing - Cytology Liquid Based Prep Specimen Anatomical Collection Method Collection Time Receive d Time (Source) Location / / Volume Laterality Cervical swab 04/03/2016 4:14 PM 04/03/20 16 5:18 (specimen) EST PM EST Resulting Agency Comment Spec In Lab Belkis Samaniego APRN PATHOLOGY/CYTOLOGY ORDERABLE S Performing Organization Address City/State/ZIP [place] [address] Cytopathology Gynecological (04/03/2016 4:14 PM EST) Specimen Anatomical Collection Method Collection Time Receive d Time (Source) Location / / Volume Laterality AP Specimen 04/03/2016 4:14 PM 6 4:14 EST PM EST Narrative [facility] - 04/03/2016 4:14 PM EST Specimen requisition ordered. ??Separate Pathology report to follow Alie Luther MD PATHOLOGY/CYTOLOGY ORDERABLE S Performing Organization Address City/State/ZIP [place] [address] documented in this encounter Visit Diagnoses Diagnosis History of abnormal cervical Pap smear Personal history of other genital system and obstetric disorders Encounter for gynecological examination without abnormal finding Routine gynecological examination documented in this encounter Care Teams Road Repairer Relationship Specialty Start Date End Date Torres Sam DO PCP - General 12/22/13 12/25/[address] [place] [address] documented as of this encounter
--- OUTSIDE RECORDS SUMMARY | 2022-02-09 01:00 | XMS_ITS | Encounter Summary ---
:1960 Author Organization [facility] Address [address] [place] [address] Care Team Providers Name Role Phone None, Provider Primary Care Provider Unavailable Reason for Visit Reason Comments Eye Problem Encounter Details Date Type Department Care Team Description 12/20/2021 Office Visit [facility] Royce Mena, Ophthalmology - [address] [address] [address], [place] [address] (Wo rk) Social History Tobacco Use Types Packs/Day Years Used Date Never Smoker Smokeless Tobacco: Never Used Alcohol Use Standard Drinks/Week Comments Yes 0 (1 standard drink = 0.6 oz pure alcoho l) Sex Assigned at Date Recorded Not on file documented as of this encounter Progress Notes Royce Mena MD - 12/20/2021 4115 EDT Chief Complaint Patient presents with ??? Eye Problem Comments Evaluation of retinal tear right eye HPI Location: Right eye Pain: 0 - No pain Quality: Blurry Severity: Moderate Duration: Days Timing: Constant Lasts: Continuous Context: Saturday afternoon pt started to see floaters in the right eye - states its like a screen over eye. has not changed since first onset. no flashes or curtain Modifying factors: left eye vision unchanged - does wear glasses for distance and near Associated Signs & Symptoms: Visual Fluctuations: Floaters Attestation: The above HPI has been reviewed by the Attending Physician Base Eye Exam Visual Acuity (Snellen - Linear) Right Left Dist cc 20/50 20/40 Dist ph cc NI NI Tonometry (Applanation, 15:33) Right Left Pressure 14 15 Pupils APD Right dilated Left Visual Baer Right Left Full Extraocular Movement Right Left Full Full Neuro/Psych Oriented x3: Yes Mood/Affect: Normal Dilation Both eyes: Phenylephrine 2.5%, Tropicamide 1% @ 15:33 Slit Lamp and Fundus Exam Slit Lamp Exam Right Left Lids/Lashes Normal Normal Conjunctiva/Sclera White and quiet White and quiet Cornea Clear Clear Anterior Chamber Deep and quiet Deep and quiet Iris Round and reactive Round and reactive Lens Nuclear sclerosis Nuclear sclerosis Vitreous inferior pre-retinal heme Fundus Exam Right Left Disc Healthy Rim Healthy Rim C/D Ratio 0.2 Macula Normal Normal Vessels Normal Normal Periphery cobblestone inferior , HST with cuff of fluid at 10 on bridging vessel Please refer to large retinal drawing. Repair Retinal Breaks, Laser - OD - Right Eye Tear locations include superior. Time Out Confirmed correct patient, procedure, site, and patient consented. Anesthesia Topical anesthesia was used. Anesthetic medications included Proparacaine 0.5%. Laser Information The type of laser was argon. Color was green. The duration in seconds was 0.1. The spot size was (SUKHDEV) microns. Laser power was 400. Total spots was 602. Post-op The patient tolerated the procedure well. There were no complications. The patient received written and verbal post procedure care education. IMPRESSION: 1. Retinal tear of right eye REPAIR RETINAL BREAKS, LASER - OD - RIGHT EYE 2. PVD (posterior vitreous detachment), right PLAN: Horseshoe tear with cuff Subretinal fluid right eye Diagnosis and treatment plan discussed with patient Recommend laser retinopexy today Risk benefits alternative and complications discussed Pt agrees to proceed with laser today No heavy lifting bending for 5 days Posterior vitreous detachment right eye See above Return in 3 wks sooner PRN I, Dr. Royce Mena, have performed my own HPI and reviewed the tech's ROS. I have also reviewed the patient's past medical, family, social and surgical history, as well as the patient's medications, allergies, and problem list. I am scribing for Dr. Royce Mena MD while he is personally performing the service. HAWK STORM (Scribe) documented in this encounter Plan of Treatment Upcoming Encounters Date Type Specialty Care Team Description 04/11/2022 Office Visit Ophthalmology Wiliam Mena MD [address] [facility], [address], [address] [place], [place] [address] (Wo rk) documented as of this encounter Procedures Procedure Name Priority Date/Time Associated Diagnosis Comme nts REPAIR RETINAL Routine 12/20/2021 17:13 Retinal tear of Result s for this BREAKS, LASER - OD EDT right eye procedure are in - RIGHT EYE the results section. documented in this encounter Results REPAIR RETINAL BREAKS, LASER - OD - RIGHT EYE (12/20/2021 17:13 EDT) Specimen Narrative [facility] POINT OF CARE - 12/20/2021 17:13 E [...] Organization Address City/State/ZIP Code Phon e Number [facility] POINT OF CARE documented in this encounter Visit Diagnoses Diagnosis Retinal tear of right eye - Primary PVD (posterior vitreous detachment), rig ht documented in this encounter Historical Medications This list may reflect changes made after this encounter. Medication Sig Dispensed Refills Start Date End Date escitalopram oxalate Take 10 mg by mouth 0 (LEXAPRO) 10 mg tablet daily. LORazepam (ATIVAN) 1 mg Take 1 mg by mouth 0 tablet as needed for Anxiety. added in this encounter Eye Exam Visual Acuity (Snellen - Linear) Right eye Left eye Dist cc 20/50 20/40 Dist ph cc NI NI Tonometry (Applanation, 15:33) Right eye Left eye Pressure 14 15 Pupils APD Right eye dilated Left eye Visual Baer Right eye Left eye Full Extraocular Movement Right eye Left eye Full Full Neuro/Psych Oriented x3: Yes Mood/Affect: Normal Dilation Both eyes: Phenylephrine 2.5%, Tropicami de 1% @ 15:33 Slit Lamp Exam Right eye Left eye Lids/Lashes Normal Normal Conjunctiva/Sclera White and quiet White and quiet Cornea Clear Clear Anterior Chamber Deep and quiet Deep and quiet Iris Round and reactive Round and reactive Lens Nuclear sclerosis Nuclear sclerosis Vitreous inferior pre-retinal heme Fundus Exam Right eye Left eye Disc Healthy Rim Healthy Rim C/D Ratio 0.2 Macula Normal Normal Vessels Normal Normal Periphery cobblestone inferior , HST with cuff of fluid at 10 on bridging vessel Care Teams Molder Machine Tender Relationship Specialty Start Date End Date None, Provider PCP - General 11/11/14 documented as of this encounter
--- OUTSIDE RECORDS SUMMARY | 2022-02-09 01:00 | XMS_ITS | Encounter Summary ---
:1960 Author Organization [facility] Address [address] [place] [address] Care Team Providers Name Role Phone None, Provider Primary Care Provider Unavailable Encounter Details Date Type Department Care Team Description 04/27/2021 Lab Requisition [facility] Outr Resulting Lab, Pathology & Laboratory Provider [facility] [address] [place], [place] [id number] Social History Tobacco Use Types Packs/Day Years Used Date Never Assessed Sex Assigned at Date Recorded Not on file documented as of this encounter Plan of Treatment Upcoming Encounters Date Type Specialty Care Team Description 04/11/2022 Office Visit Ophthalmology Wiliam Mena MD [address] [facility], [address], [address] [place], [place] [address] (Wo rk) documented as of this encounter Procedures Procedure Name Priority Date/Time Associated Diagnosis Comme nts COVID-19 TEST [facility] Today 04/26/2021 15:40 LAB PCR EST COVID-19 TESTING Routine 04/26/2021 15:40 Results for this EST procedure are i n the results section. documented in this encounter Results COVID-19 TEST [facility] LAB PCR (04/26/2021 15:40 EST) Specimen Swab Performing Organization Address City/State/ZIP Code Phon e Number [facility] [address] [place] [address] SERVICES COVID-19 TESTING (04/26/2021 15:40 EST) COVID-19 rt-PCR Negative Negative [facility] Result Comment: [facility] This test has not been FDA c leared or approved. This test has been authorized by FDA under an EUA for use by authorized laboratories. This test has been authorized only for detection of nucleic acid fro SERVICES m 2019-nCoV, not for any oth er viruses or pathogens. This test is only authorized for the duration of the declaration that circumstances exist justifying the authorization of emergency use of in vitro d iagnostic tests for detectio n and/or diagnosis of 2019-nCoV under section 564(b)(1) of Act, 21 U.S.C ?? 360bbb-3(b) (1), unless the authorization is terminated or revoked sooner. Negative results do not prec lude 2019-nCoV infection and should not be used as the sole basis for treatment or other patient management decisions. Negative results must be combined with clinical observa tions, patient history, and epidemiological informatio n. This test was developed and its performance characteristics determined by [facility]. It has not been cleared or approved [...] defined by the FDA Performed on the YongCheo 7 Flex RT-PCR System. Performing Lab [facility] Lab [facility] SERVICES Specimen Swab Performing Organization Address City/State/ZIP Code Phon e Number [facility] [address] [place] [address] SERVICES documented in this encounter Visit Diagnoses Not on filedocumented in this encounter Care Teams Cleaner Signs Relationship Specialty Start Date End Date None, Provider PCP - General 11/11/14 documented as of this encounter
--- OUTSIDE RECORDS SUMMARY | 2022-02-09 01:00 | XMS_ITS | Encounter Summary ---
:1960 Author Organization [facility] Address [address] [place] [address] Care Team Providers Name Role Phone Torres Sam DO Primary Care Provider Encounter Details Date Type Department Care Team Description 11/11/[address] [facility] Unknown, Provider, [facility] [address] [facility] [phone] [place] [address] (Work) [phone] Social History Tobacco Use Types Packs/Day Years Used Date Never Assessed Sex Assigned at Date Recorded Not on file documented as of this encounter Discharge Disposition Disposition Code Departure Means Destination Home or Self Senior Living documented in this encounter Plan of Treatment Upcoming Encounters Date Type Specialty Care Team Description 04/11/2022 Office Visit Ophthalmology Wiliam Mena MD [address] [facility], [facility], [address] [place], [place] [address] (Wo rk) documented as of this encounter Visit Diagnoses Not on filedocumented in this encounter Care Teams Dance Artist Relationship Specialty Start Date End Date Torres Sam DO PCP - General 02/03/13 11/10/[address] [place], [place] [id number] documented as of this encounter
--- OUTSIDE RECORDS SUMMARY | 2022-02-09 01:00 | XMS_ITS | Encounter Summary ---
:1960 Author Organization [facility] Address [address] [place] [address] Care Team Providers Name Role Phone FlacoTorres medeiros Primary Care Provider Encounter Details Date Type Department Care Team Description 03/03/2013 Results Only [facility]- Sudha Sanford DO [phone] [facility] [place] [address] (Wo rk) Social History Tobacco Use Types Packs/Day Years Used Date Never Assessed Sex Assigned at Date Recorded Not on file documented as of this encounter Plan of Treatment Upcoming Encounters Date Type Specialty Care Team Description 04/11/2022 Office Visit Ophthalmology Wiliam Mena MD [address] [facility], [facility], [address] [place], [place] [address] (Wo rk) documented as of this encounter Procedures Procedure Name Priority Date/Time Associated Diagnosis [facility] SURGICAL PATHOLOGY Routine 03/03/2013 8:43 EST Re sults for this procedure are i n the results section. documented in this encounter Results SURGICAL PATHOLOGY (03/03/2013 8:43 EST) Pathology Report: SURGICAL PATHOLOGY REPORT YOLETTE HAYES Reports generated via electronic interface contain mc ginal data; LAB however they are lacking the format of the original re port. Caution should be taken when reading/interpreting unfo rmatted reports. Name: ? ASHA, BRID GET A ? Accession #: ? [id number] ? : ? 1960 (Age: 53) ??F ? Collect Date: ? 03/03/2013 ? Location: ? [facility] ? Receive Date: ? 013 ? Provider: SUDHA RODRIGUEZ DO Copy to: TORRES SAM DO ? Final Pathologic Diagnosis: SKIN OF THIGH, LEFT POSTERIOR, EXCISION: - Basal cell carcinoma, superficial multicentric type. ?? - Margins negative, but close, for basal cell carcino ma. ??- Basal cell carcinoma present approx imately 0.5 mm from peripheral margin. - Epidermal reparative change and dermal scar, consistent with biopsy site. ?? Microscopic Description: Emanating from the epidermis and [...] a typical cells from the stroma. ??(Dr. Vidal)/n Document reviewed and electronically signed by: NATALIA VIDAL MD Report ??Date: 03/05/2013 12:47 By the signature above, the attending physician certif ies that he/she has personally conducted a gross and/or microscopic examin ation of the described specimens and rendered or confirmed the above diagnosi s. Specimen(s) Received: Basal cell post left thigh Clinical History: Basal cell carcinoma left posterior thigh Gross Description: Received in formalin aneesh d with proper patient identification (initials D, B) and basal cell post left thigh is an unoriented amanda ptical excision of cunha-white skin (1.3 x 0.7 cm and is excised to a depth of 0.3 cm). There is a slightly eccentric, irregular cunha-jeffrey s caled area that measures 0.5 x 0.5 cm. The margins are inked. The s pecimen is serially sectioned and entirely submitted as 1 and 2 central sections and 3 tips, reverse en fac aden Allison 03/04/2013 10:08 AM End of Report Specimen Performing Organization Address City/State/ZIP Code Phon e Number [facility] [address] [place] [address] SERVICES [facility] [address] [place] [address] documented in this encounter Visit Diagnoses Not on filedocumented in this encounter Care Teams Administrator Of Home Health Relationship Specialty Start Date End Date Torres Sam DO PCP - General 02/03/13 11/10/14 [facility] [address] [facility] [place] [address] documented as of this encounter
--- OUTSIDE RECORDS SUMMARY | 2022-02-09 01:00 | XMS_ITS | Encounter Summary ---
:1960 Author Organization [facility] Address [address] [place] [address] Care Team Providers Name Role Phone None, Provider Primary Care Provider Unavailable Encounter Details Date Type Department Care Team Description 12/16/2019 Lab Requisition [facility] Dorina Canales, Encounter for other Pathology & PIZZA HUT ASSISTANT general examination Laboratory Medicine [address] [place] [address] [address] [place] [address] [phone] Social History Tobacco Use Types Packs/Day Years Used Date Never Assessed Sex Assigned at Date Recorded Not on file documented as of this encounter Plan of Treatment Upcoming Encounters Date Type Specialty Care Team Description 04/11/2022 Office Visit Ophthalmology Wiliam Mena MD [address] [facility], [facility], [address] [place], [place] [address] (Wo rk) documented as of this encounter Procedures Procedure Name Priority Date/Time Associated Comments Diagnosis PAP TEST Today 12/15/2019 13:40 Encounter for other Resu lts for this EDT general examination procedur e are in the results section. HUMAN PAPILLOMAVIRUS Today 12/15/2019 13:40 Encounter for ot her Results for this (HPV) DETECTION-HIGH EDT general examination procedure are in RISK TYPES the results section. documented in this encounter Results HUMAN PAPILLOMAVIRUS (HPV) DETECTION-HIGH RISK TYPES (12/15/2019 13:40 EDT) Human Papillomavirus NegativeComment: No Negative UV MEDICAL (HPV) Detection-High E6 or E7 mRNA is CENTER LABORATOR Y Types detected from HPV SERVICES types 16,18,31,33,35,39,45 ,51,52,56,58,59,66, and 68 by hr consultant mediated amplification. Specimen Pap Test - Cervix and/or Endocervix Performing Organization Address City/State/ZIP Code Phon e Number [facility] [address] [place] [address] SERVICES PAP TEST (12/15/2019 13:40 EDT) Specimens A. Cervix and/or [facility] MEDICAL Endocervix , ThinPrep CENTER Imaging System with LABORATORY Manual Evaluation SERVICES Specimen Adequacy Satisfactory for [facility] MEDICAL Evaluation - CENTER assessment of LABORATORY transformation zone SERVICES component not applicable ( e.g. atrophy, vaginal sample, hysterectomy) General Negative for [facility] intraepithelial CENTER lesion or malignancy LABORATORY SERVICES Attestation . [facility] MEDICAL Electronically CENTER signed by Juan patel LABORATORY JEAN Sinha(A SCP) SERVICES on 12/29/2019 at 2003 HPV The result for the Human Pap illomavirus (HPV) Detection-High Risk Types is Negative. No E6 or E7 mRNA is detected from HPV types 16,18,31,33,35,39,45,51,52,56,58,59,66, and 68 by hr consultant mediated [facility] MEDICAL amplification.Testing was pe rformed on specimen [id number] and was resulted on 12/29/20191958 EDT by PIO, LAB INSTRUMENT RESULTS IN [facility] SERVICES Scanned Images [facility] SERVICES Specimen Pap Test - Cervix and/or Endocervix Performing Organization Address City/[facility]/ZIP Code Phon e Number [facility] [address] [place] [address] SERVICES documented in this encounter Visit Diagnoses Diagnosis Encounter for other general examination documented in this encounter Care Teams Locksmith Relationship Specialty Start Date End Date None, Provider PCP - General 11/11/14 documented as of this encounter
--- OUTSIDE RECORDS SUMMARY | 2022-02-09 01:00 | XMS_ITS | Encounter Summary ---
:1960 Author Organization [facility] Address [address] [place] [address] Care Team Providers Name Role Phone None, Provider Primary Care Provider Unavailable Reason for Visit Reason Comments Eye Problem Encounter Details Date Type Department Care Team Description 01/10/2022 Office Visit [facility] Royce Mena, Ophthalmology - [address], [place] [address] (Wo rk) Social History Tobacco Use Types Packs/Day Years Used Date Never Smoker Smokeless Tobacco: Never Used Alcohol Use Standard Drinks/Week Comments Yes 0 (1 standard drink = 0.6 oz pure alcoho l) Sex Assigned at Date Recorded Not on file documented as of this encounter Progress Notes Royce Mena MD - 01/10/2022 0900 EDT Chief Complaint Patient presents with ??? Eye Problem Comments Hx of laser to tear right eye 12/20/21 Vitreous hemorrhage right eye HPI Location: Right eye Pain: 0 - No pain Quality: Blurry Severity: Moderate Duration: Weeks Timing: Constant Lasts: Continuous Context: right eye floaters improving but still has them. no flashes, curtain or shade Modifying factors: left eye vision stable - no flashes or floaters Associated Signs & Symptoms: no pain Visual Fluctuations: Floaters Attestation: The above HPI has been reviewed by the Attending Physician Base Eye Exam Visual Acuity (Snellen - Linear) Right Left Dist cc 20/40 20/25 -1 Tonometry (Applanation, 9:06) Right Left Pressure 16 Dilation Both eyes: Phenylephrine 2.5%, Tropicamide 1% @ 9:06 Slit Lamp and Fundus Exam Slit Lamp Exam Right Left Lens Nuclear sclerosis Vitreous Moderate de-Hgb vitreous hemorrhage no fresh heme Fundus Exam Right Left Disc Healthy Rim Macula Normal Vessels Normal Periphery sold laser barricade to tear ST, no new breaks or RD seen 360 SD exam Please refer to large retinal drawing. IMPRESSION: 1. Retinal tear of right eye 2. Vitreous hemorrhage of right eye (HCC-CMS) ([facility]) PLAN: S/p laser to tear right eye solid barricade of laser No new holes, tears or retinal detachment Retinal detachment symptoms were reviewed with the patient. The patient was instructed to return immediately for flashing lights, floaters in the vision, or curtaining of the vision. Vitreous hemorrhage right eye Improving No new/fresh heme Follow Return in 4 wks sooner PRN I, Dr. Royce Mena, [...] Office Visit Ophthalmology Wiliam Mena MD [address] [facility], [facility], [address] [place], [place] [address] (Wo rk) documented as of this encounter Visit Diagnoses Diagnosis Retinal tear of right eye - Primary Vitreous hemorrhage of right eye (HCC-CM S) ([facility]) Vitreous hemorrhage documented in this encounter Eye Exam Visual Acuity (Snellen - Linear) Right eye Left eye Dist cc 20/40 20/25 -1 Tonometry (Applanation, 9:06) Right eye Left eye Pressure 16 Dilation Both eyes: Phenylephrine 2.5%, Tropicami de 1% @ 9:06 Slit Lamp Exam Right eye Left eye Lens Nuclear sclerosis Vitreous Moderate de-Hgb vitreous hemorrhage no f resh heme Fundus Exam Right eye Left eye Disc Healthy Rim Macula Normal Vessels Normal Periphery sold laser barricade to tear ST, no new breaks or RD seen 360 SD exam Care Teams Sales Team Manager Relationship Specialty Start Date End Date None, Provider PCP - General 11/11/14 documented as of this encounter
--- OUTSIDE RECORDS SUMMARY | 2022-02-09 01:00 | XMS_ITS | Encounter Summary ---
:1960 Author Organization [facility] [place] [address] Care Team Providers Name Role Phone Torres Sam DO Primary Care Provider Reason for Visit Reason Onset Date Comments Medication Refill 04/21/2015 Encounter Details Date Type Department Care Team Description 04/21/2015 Refill Obstetrics and Gynec ology at [facility] [place] [address] Social History Tobacco Use Types Packs/Day Years [...] on filedocumented in this encounter Care Teams Art History Professor Relationship Specialty Start Date End Date Torres Sam DO PCP - General 12/22/13 12/25/[address] [place] [address] documented as of this encounter
--- OUTSIDE RECORDS SUMMARY | 2022-02-09 01:00 | XMS_ITS | Encounter Summary ---
:1960 Author Organization [facility] [place] [address] Care Team Providers Name Role Phone Torres Sam DO Primary Care Provider Encounter Details Date Type Department Care Team Description 10/03/2015 Hospital Encounter Mammography at [facility] Yolande Pacheco, Breast lump [facility] [place] [address] [facility] [phone] GENERAL SURGERY [place], [place] [address] (Wo rk) Social History Tobacco [...] Procedure Name Priority Date/Time Associated Comments Diagnosis MAMMO DIAGNOSTIC CAD Routine 10/03/2015 2:01 PM Breast lump R esults for this BILATERAL EDT procedure are i n the results section. documented in this encounter Results Mammo Digital Bilateral Diagnostic With Cad (10/03/2015 2:01 PM EDT) Anatomical Region Laterality Modality Breast [...] breast documented in this encounter Care Teams Materials Engineer Relationship Specialty Start Date End Date Torres Sam DO PCP - General 12/22/13 12/25/[address] [place] [address] documented as of this encounter
--- OUTSIDE RECORDS SUMMARY | 2022-02-09 01:00 | XMS_ITS | Encounter Summary ---
:1960 Author Organization [facility] [place] [address] Care Team Providers Name Role Phone Torres Sam DO Primary Care Provider Reason for Visit Reason Comments Establish Care Encounter Details Date Type Department Care Team Description 01/17/2015 Office Visit Obstetrics and Brooklyn Lima, [facility]; Gynecology at [facility] ASCUS with positive high risk HPV [facility] [address] [place] OBSTETRICS & [address] GYNECOLOGY [phone] [place], [place] [address] Social History Tobacco Use Types Packs/Day Years Used Date Never Smoker Alcohol Use Standard Drinks/Week Comments Yes 1 (1 standard drink = 0.6 oz pure alcoho l) Sex Assigned at Date Recorded Not on file documented as of this encounter Last Filed Vital Signs Vital Sign Reading Time Taken Comments Blood Pressure 106/64 01/17/2015 1:17 PM EDT Pulse 72 01/17/2015 1:17 PM EDT Temperature 36.5 ??C (97.7 ??F) 01/17/2015 1:17 PM EDT Respiratory Rate 16 01/17/2015 1:17 PM EDT Oxygen Saturation - - Inhaled Oxygen Concentration - - Weight 70.6 kg (155 lb 9.6 oz) 01/17/2015 1:17 PM EDT Height 165.1 cm (5' 5) 01/17/2015 1:17 PM EDT Body Mass Index 25.89 01/17/2015 1:17 PM EDT documented in this encounter Progress Notes Derrick Smith MD - 01/17/2015 4:13 PM EDT I saw and evaluated Tori Lopez. I agree with the findings and the plan of care as documented in the resident's note. DERRICK SMITH MD Brooklyn Lima - 01/17/2015 1:33 PM EDT Annual Visit Tori Lopez [id number] 01/17/2015 TORRES SAM DO (General) Reason for Visit: Tori is a 54 y.o. perimenopausal female who presents for her annual GYNexam. She also presents with the following complaints/concerns: hot flashes and abnormal pap smears. HPI: She presents to establish new gynecologic care after her provider retired. She also has a hx ofabnormal pap smears and was told that she needed further evaluation at this time. The records from outside hospitals show the [...] tissue, and i mmunohistochemical staining is not possible. LMP: Per patient either August or September 2014 and last before that was 7 months prior. She has been experiencing hot flashes that are very disruptive to her life. She feels that she cannot sleep well. She would like relief from these symptoms. She is sexually active. One sexual partner in the last six months. She endorses one episode of genital herpes 20 years ago. She has had three outbreaks since then. Not an issue currently. No history of sexual, physical, mental abuse. Health Maintenance: Exercise: 4x/week, walking Diet: Overall healthy diet besides two diet sodas/day Immunizations: Up to date per the patient, does not want flu shot Seatbelt Use: Yes Mammogram: last mammogram at [facility] on 11/09/14, per patient it was normal, will recommend repeat in one year, patient would like to do this at [facility] Cholesterol: Normal per patient this year Colon Cancer Screening: colonoscopy three months ago at [facility] Thyroid: Normal per patient Fasting Glucose: Normal per patient this year Bone Density: Not indicated OB History Para Term AB TAB SAB Ectopic Multiple Living 3 1 1 0 2 1 1 0 0 0 # Outc Date GA Lbr Javid/2nd Wgt Sex Del Anes PTL Lv 1 TAB 2 SAB 3 Term Past Medical History Diagnosis Date ??? Anxiety Past Surgical History Procedure Laterality Date ??? Breast reduction surgery 20 years ago ??? Ovarian cyst removal Left 26 years ago History Social History ??? Marital Status: Single Spouse Name: N/A Number of Children: N/A ??? 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 Smoking status: Never Smoker ??? Smokeless tobacco: None ??? Alcohol Use: 0.6 oz/week 1 Not specified per week ??? Drug Use: None ??? Sexual Activity: None Other Topics Concern ??? Abuse Or Threat: Physical, Sexual, Verbal No ??? Alcohol/Drug Concern No ??? Exercise Yes ??? Seat Belt Yes Social History Narrative has a current medication list which includes the following prescription(s): clonazepam and motrin. No Known Allergies ROS: Constitutional - No fevers, fatigue, positive night sweats HEENT - No new headaches, vision/hearing changes. Pulmonary - No cough or SOB. Cardiac - No CP or palpitations. GI - No abdominal pain, N/V, diarrhea, constipation, melena. - No dysuria, hematuria, polyuria. No vaginal discharge. Endocrine - endorses hot flashes and chills Musculoskeletal - endorses morning joint stiffness Heme - No easy bruising/hard to control bleeding. Neuro - No dizziness. Skin - No rashes. Psych - No depression/anxiety. Physical Exam Filed Vitals: 01/17/15 1317 BP: 106/64 Pulse: 72 Temp: 36.5 ??C (97.7 ??F) TempSrc: Oral Resp: 16 Height: 165.1 cm (5' 5) Weight: 70.58 kg (155 lb 9.6 oz) General: Well developed female. Skin: no rashes Neck: no thyromegaly or lymphadenopathy Back: no CVA tenderness Lungs: clear to auscultation bilaterally, no wheezes or rales Heart: RRR, normal S1/S2, no murmurs/rubs/gallops Breast: no skin changes, no masses palpated, no nipple discharge, no axillary or supraclavicular lymphadenopathy Abdomen: no scars, no masses or hepatosplenomegaly; soft, nontender, nondistended Pelvic: Normal appearing external genitalia. Urethra without prolapse. estrogenized vaginal mucosa. Normal physiologic discharge present. Cervix appears small without lesion or discharge. Endocervical curettage obtained. Bimanual notable for small anteverted uterus. No adnexal masses or tenderness. Extremities: No calf tenderness or lower ext edema Neuro: grossly intact Assessment: Tori is a 54 y.o. postmenopausal female who presents for her annual [employer]IPE exam.She also presents with the following complaints/concerns: hot flashes and abnormal pap smears. Plan: ?? Endocervical curetting performed today, Pap should be repeated in one year due to hx of ASC-US and high risk HPV earlier this year. ?? Preventative issues: up-to-date, continue care with PCP and repeat mammogram in October 2015 ?? Perimenopausal: started patient on femhrt low dose for symptom relief ?? Nutritional/Exercise counseling provided ?? This patient sees her primary care provider (Dr. Sam) for age and disease specific screening not related to gynecological care ?? Return for pelvic/breast exam in 1 year unless ECC returns as abnormal and needs closer follow-up The patient was discussed with Dr. Jona LIMA MD, PGY1 documented in this encounter Miscellaneous Notes Addendum Note - Derrick Smith MD - 01/17/2015 4:13 PM EDT Addended by: DERRICK SMITH on: 01/17/2015 04:13 PM Modules accepted: Level of Service documented in this encounter Plan of Treatment Not on filedocumented as of this encounter Procedures Procedure Name Priority Date/Time Associated Diagnosis Comme nts SPECIMEN TO Routine 01/17/2015 3:44 PM ASCUS with positive Re sults for this PATHOLOGY (NON-OR) EDT high risk HPV procedur e are in the results section. SURGICAL PATHOLOGY Routine 01/17/2015 3:44 PM Res ults for this REPORT EDT procedure are i n the results section. documented in this encounter Results Surgical Pathology Report (01/17/2015 3:44 PM EDT) [facility] Method Time Signature Surgical The signing pathologist has (i) examined the relevant preparation(s) for the [facility] Pathology specimen(s) and (ii) rendered or confirmed the diagnosis(e s). [facility] Report Accession Number: [id number] ?Location: 5 L . ?Surgic al Pathology DIAGNOSIS Endocervical curettings: ?? 1. Fragments of benign metaplastic squamous mucosa inter mixed ?with cervical mucus, blood clot, and wbcs. ?? 2. No definite evidence of dysplasia or HPV effect. CR-0 01/18/15 JLG 01/18/15 Verified by: ? Suleman Dixon MD ?Pathologist ?(Electronic Signature ) The attending pathologist whose signature appears on this re port has reviewed all diagnostic slides and has edited the gross and/ or microscopic portion of the report in latoya dering the final pathologic diagnosis. CLINICAL INFORMATION Specimen Submitted: A - Endocervical curetting Clinical History: History of atypical squamous cells on ECC, insufficient samp le in past Clinical Diagnosis: Same SPECIMEN PROCESSING A - Labeled/Fixative: Patient demographics, formalin. Quantity/Size: Fragments, 0.8 cm in aggregate diameter. Tissue Description: Tissue fragments and mucus. Sections/Processing: (T1) ??sns Specimen (Source) Anatomical Collection Method Collection Time Re ceived Time Location / / Volume Laterality 01/17/2015 3:44 PM EDT Brooklyn Lima MD PATHOLOGY/CYTOLOGY ORDERABLE S Performing Organization Address City/State/ZIP Code Phon e Number [address] [facility] Specimen to Pathology (NON-OR) (01/17/2015 3:44 PM EDT) Specimen Anatomical Collection Method Collection Time Receive d Time (Source) Location / / Volume Laterality AP Specimen 01/17/2015 3:44 PM 5 3:44 EDT PM EDT Narrative MIGUEL ANGEL MASSEYIUM - 01/17/2015 3:44 PM E DT Specimen requisition ordered. ??Separate Pathology report to follow Derrick Smith MD PATHOLOGY/CYTOLOGY ORDERABLE S Performing Organization Address City/[facility] Code Phon e Number [address] [facility] documented in this encounter Visit Diagnoses Diagnosis [facility]-men[facility] Symptomatic menopausal or female climact [place] ASCUS with positive high risk HPV Vaginal high risk human papillomavirus ( HPV) DNA test positive documented in this encounter Care Teams Furniture Detailer Relationship Specialty Start Date End Date Torres Sam DO PCP - General 12/22/13 12/25/[address] [place] [address] documented as of this encounter
--- OUTSIDE RECORDS SUMMARY | 2022-02-09 01:00 | XMS_ITS | Encounter Summary ---
:1960 Author Organization [facility] [address] Care Team Providers Name Role Phone Torres Sam DO Primary Care Provider Encounter Details Date Type Department Care Team Description 09/21/2015 Orders Only General Surgery at [facility] Sandra Powell, Breast lump [facility] [place] [address] [facility] [phone] GENERAL SURGERY [place], [place] [address] (Wo rk) Social History Tobacco Use Types Packs/Day Years Used Date Never Smoker Smokeless Tobacco: Never Used Alcohol Use Standard Drinks/Week Comments Yes 1 (1 standard drink = 0.6 oz pure alcoho l) Sex Assigned at Date Recorded Not on file documented as of this encounter Plan of Treatment Not on filedocumented as of this encounter Results Mammo Breast Us Limited [...] or intraductal abno rmality. Yolande Pacheco MD [facility] MAMMO ORDERABLES Mammo Digital Bilateral Diagnostic With Cad (10/03/2015 [...] Breast lump Lump or mass in breast Breast lump Lump or mass in breast Breast lump Lump or mass in breast documented in this encounter Care Teams Woodworking Machine Offbearer Relationship Specialty Start Date End Date Torres Sam DO PCP - General 12/22/13 12/25/[address] [place] [address] documented as of this encounter
--- OUTSIDE RECORDS SUMMARY | 2022-02-09 01:00 | XMS_ITS | Encounter Summary ---
:1960 [place] [address] Care Team Providers Name Role Phone Carlyn Dueñas MD Primary Care Provider Encounter Details Date Type Department Care Team Description 02/26/2013 Hospital Encounter Radiology Library at Traci Braun, Son[facility] [place] [address] DIAGNOSIC RADIOLOGY [phone] [place] [address] (Wo rk) Social History Tobacco Use Types [...] Procedure Name Priority Date/Time Associated Diagnosis Comme [facility] FILM LIBRARY Routine 02/26/2013 12:00 AM Screening Results for this STORAGE ONLY MAMMO EST procedure are in the results section. documented in this encounter Results Film Library- Storage only Mammo (02/26/2013 12:00 AM EST) Specimen (Source) Anatomical Location Collection Method / Collectio n Time Received Time / Laterality Volume Narrative [facility] - 10/03/2015 1:55 PM EDT This exam is for storage only and is aut o-finalizing. Denys Braun MD Bhargav FILM LIBRARY ORDERABLES Performing Organization Address City/State/ZIP Code Phon e Number [place], [place] documented in this encounter Visit Diagnoses Diagnosis Screening Screening for unspecified condition documented in this encounter Care Teams Senior Software Manager Relationship Specialty Start Date End Date Carlyn Dueñas MD PCP - General 03/14/10 12/21/13 [address] [place] [address] documented as of this encounter
--- OUTSIDE RECORDS SUMMARY | 2022-02-09 01:00 | XMS_ITS | Encounter Summary ---
:1960 Author Organization [facility] Address [address] [place] [address] Care Team Providers Name Role Phone None, Provider Primary Care Provider Unavailable Reason for Visit Reason Comments Eye Problem Encounter Details Date Type Department Care Team Description 12/23/2021 External Contact [facility] Royce Mena Vitreous hemorrhage of right eye (HCC-CMS) (HCC) (Primary Dx); Ophthalmology - MD Angeli Retinal tear of right eye; [address] (posterior vitreous deta chment), right 2 [facility], [place] [address] [address], [place] [address] (Wo rk) Social History Tobacco Use Types Packs/Day Years Used Date Never Smoker Smokeless Tobacco: Never Used Alcohol Use Standard Drinks/Week Comments Yes 0 (1 standard drink = 0.6 oz pure alcoho l) Sex Assigned at Date Recorded Not on file documented as of this encounter Progress Notes Royce Mena MD - 12/23/2021 1512 EDT Chief Complaint Patient presents with ??? Eye Problem HPI Comments Upon awakening this am, noticed increased floaters and worse vision. Had noticed increase in floaters yesterday but could still see. Had laser for horseshoe tear with bridging vessel right 3 days ago. Base Eye Exam Visual Acuity (Snellen - Linear) Right Left Dist sc CF at 3' Tonometry (Applanation, 15:13) Right Left Pressure 14 Pupils Pupils APD Right PERRL None Left PERRL None Extraocular Movement Right Left Full Full Neuro/Psych Oriented x3: Yes Mood/Affect: Normal Dilation Right eye: Phenylephrine 2.5%, Tropicamide 1% @ 15:13 Slit Lamp and Fundus Exam Slit Lamp Exam Right Left Lids/Lashes Normal Conjunctiva/Sclera White and quiet Cornea Clear Anterior Chamber Deep and quiet Iris Round and reactive Lens Nuclear sclerosis Vitreous moderate vh, dense centrally Fundus Exam Right Left Disc obscured Macula obscured Vessels Normal Periphery cobblestone inferior , HST with cuff of fluid at 10 on bridging vessel, well-surrounded by laser. No untreated breaks. No retinal detachment on 360Sd exam Please refer to large retinal drawing. IMAGING: IMPRESSION: 1. Vitreous hemorrhage of right eye (HCC-CMS) ([facility]) 2. Retinal tear of right eye 3. [...] of the vision. Sleep with head elevated. Horseshoe tear right eye : well-treated RTC this Saturday, sooner if symptoms worsen or fail to improve. I, Dr. Royce Mena, have performed my own HPI and reviewed the tech's ROS. I have also reviewed the patient's past medical, family, social and surgical history, as well as the patient's medications, allergies, and problem list. Seen after hours [facility] location documented in this encounter Plan of Treatment Upcoming Encounters Date Type Specialty Care Team Description 04/11/2022 Office Visit Ophthalmology Wiliam Mena MD [address] [facility], [facility], [address] [place], [place] [address] (Wo rk) documented as of this encounter Visit Diagnoses Diagnosis Vitreous hemorrhage of right eye (HCC-CM S) (HCC) - Primary Vitreous hemorrhage Retinal tear of right eye PVD (posterior vitreous detachment), rig ht documented in this encounter Eye Exam Visual Acuity (Snellen - Linear) Right eye Left eye Dist sc CF at 3' Tonometry (Applanation, 15:13) Right eye Left eye Pressure 14 Pupils Pupils APD Right eye PERRL None Left eye PERRL None Extraocular Movement Right eye Left eye Full Full Neuro/Psych Oriented x3: Yes Mood/Affect: Normal Dilation Right eye: Phenylephrine 2.5%, Tropicami de 1% @ 15:13 Slit Lamp Exam Right eye Left eye Lids/Lashes Normal Conjunctiva/Sclera White and quiet Cornea Clear Anterior Chamber Deep and quiet Iris Round and reactive Lens Nuclear sclerosis Vitreous moderate vh, dense centrally Fundus Exam Right eye Left eye Disc obscured Macula obscured Vessels Normal Periphery cobblestone inferior , HST with cuff of fluid at 10 on bridging vessel, well-surrounded by laser. No unt reated breaks. No retinal detachment on 360Sd exam Care Teams Blocker Polishing Relationship Specialty Start Date End Date None, Provider PCP - General 11/11/14 documented as of this encounter
--- OUTSIDE RECORDS SUMMARY | 2022-02-09 01:00 | XMS_ITS | Encounter Summary ---
:1960 Author Organization [facility] Address [address] [place] [address] Care Team Providers Name Role Phone FlacoTorres DO Primary Care Provider Encounter Details Date Type Department Care Team Description 11/11/2013 Results Only [facility] Sam, DO Laboratory Services - [address] [place] [address] [address] [facility] [place], [place] [id number] [phone] Social History Tobacco Use Types Packs/Day Years Used Date Never Assessed Sex Assigned at Date Recorded Not on file documented as of this encounter Plan of Treatment Upcoming Encounters Date Type Specialty Care Team Description 04/11/2022 Office Visit Ophthalmology Wiliam Mena MD [address] [facility], [facility], [address] [place], [place] [address] (Wo rk) documented as of this encounter Procedures Procedure Name Priority Date/Time Associated Diagnosis Comme nts SURGICAL PATHOLOGY Routine 11/11/2013 19:51 Resul ts for this EDT procedure are i n the results section. documented in this encounter Results SURGICAL PATHOLOGY (11/11/2013 19:51 EDT) Pathology Report: SURGICAL PATHOLOGY REPORT YOLETTE HAYES Reports generated via electronic interface contain mc ginal data; LAB however they are lacking the format of the original re port. Caution should be taken when reading/interpreting unfo rmatted reports. Name: ? ASHA, BRID GET A ? Accession #: ? [id number] ? : ? 1960 (Age: 53) ??F ? Collect Date: ? 11/11/2013 ? Location: ? [facility] ? Receive Date: ? 014 ? Provider: TORRES SAM DO Copy to: ? Final Pathologic Diagnosis: SKIN OF HIP, RIGHT, PUNCH BIOPSY: - Basal cell carcinoma, superficial multicentric type. - Basal cell carcinoma present at peripheral edges of punch biopsy specimen. Microscopic Description: Emanating from the [...] a typical cells from the stroma. ??(Dr. Vidal)/[facility] Document reviewed and electronically signed by: NATALIA VIDAL MD Report ??Date: 11/13/2013 13:37 By the signature above, the attending physician certif ies that he/she has personally conducted a gross and/or microscopic examin ation of the described specimens and rendered or confirmed the above diagnosi s. Specimen(s) Received: 2.0 mm punch R hip Clinical History: 2.0 cm red, non-healing keratosis Gross Description: ? Received in formalin labelled with proper patient identification (initials D, B) and R hip is a punch biopsy of cunha-white skin (0.2 cm in diameter and 0.3 cm in thickness). Submitted intact in 1. Deborah Allison 11/13/2013 End of Report Specimen Performing Organization Address City/State/ZIP Code Phon e Number [facility] [address] [place] [address] SERVICES [facility] [address] [place] [address] documented in this encounter Visit Diagnoses Not on filedocumented in this encounter Care Teams Distillation Operator Relationship Specialty Start Date End Date Torres Sam DO PCP - General 02/03/13 11/10/14 [address] [place] [address] documented as of this encounter
--- OUTSIDE RECORDS SUMMARY | 2022-02-09 01:00 | XMS_ITS | Encounter Summary ---
:1960 Author Organization [facility] [place] [address] Care Team Providers Name Role Phone Torres Sam DO Primary Care Provider Reason for Visit Reason Comments Skin Check Encounter Details Date Type Department Care Team Description 12/22/2013 [facility] (Primary Dx); [place] OLIVAS Dermal nevus of other site; [address] [facility] Other seborrheic keratosis Kashif B DERMATOLOGY [place], [place] [id number] [phone] Social History Tobacco Use Types Packs/Day Years Used Date Unknown If Ever Smoked Sex Assigned at Date Recorded Not on file documented as of this encounter Patient Instructions Patient InstructionsTanisha Zamudio LPN - 12/22/2013 10:23 AM EDT Images from the original note were not included. [facility] Learning About Basal Cell Skin Cancer Your Care Instructions Basal cell skin cancer (carcinoma) is a type of skin cancer. It most often appears on areas of the body that have been exposed to the sun. These areas include the head, face, neck, back, chest, or shoulders. The nose is the most common site. This cancer grows slowly and does not usually spread, or metastasize, to other parts of the body. Itis almost always cured when it is found early and treated. This skin cancer is usually caused by too much sun. Using tanning beds or sunlamps can also cause it. What are the symptoms? Signs of basal cell carcinoma include: ?? Any firm, pearly bump with tiny blood vessels that look spidery. ?? Any red, tender, flat spot that bleeds easily. ?? Any small, fleshy bump with a smooth, pearly appearance. It may have a sunken center. ?? Any smooth, shiny bump that may look like a mole or cyst. ?? Any patch of skin, especially on the face, that looks like a scar and is firm to the touch. ?? Any bump that itches, bleeds, crusts over, and then repeats the cycle and has not healed in a fewweeks. ?? Any change in the size, shape, or color of a mole or a skin growth. How is it treated? Your doctor will want to remove all of the cancer. There are several ways to remove it. It depends on how big it is, where it is on your body, and your age and overall health. Treatment options include: ?? Surgery to cut out the cancer. ?? Mohs micrographic surgery. This surgery removes the skin cancer one layer at a time, checking each layer for cancer cells right after it is removed. ?? Curettage and electrosurgery. Curettage uses a spoon-shaped instrument (curette) to scrape off the skin cancer, and electrosurgery controls the bleeding and destroys any remaining cancer cells. ?? Cryosurgery. Cryosurgery destroys the skin cancer by freezing it with liquid nitrogen. ?? Radiation therapy. Radiation therapy uses X-rays or other types of radiation to kill cancer cells. It may be done if surgery isn't an option. Other treatment options include chemotherapy cream and photodynamic therapy. If your doctor removes the cancer, he or she will send it to a lab. The lab makes sure it is a basalcell cancer and that it all was removed. If cancer is still there, you may need more treatment. How can you prevent it? ?? Always wear a wide-brimmed hat and long sleeves and pants when you are outdoors. ?? Avoid the sun between 10 a.m. and 4 p.m., which is the peak time for UV rays. ?? Always wear sunscreen on exposed skin. Make sure the sunscreen blocks ultraviolet rays (both UVA and UVB) and has a sun protection factor (SPF) of at least 15. Use it every day, even when it is cloudy. Some doctors may recommend a higher SPF, such as 30. ?? Do not use tanning booths or sunlamps. ?? Use lip balm or cream that has sun protection factor (SPF) to protect your lips from getting sunburned or getting cold sores. ?? Wear sunglasses that block UV rays. When should you call for help? Watch closely for changes in your health, and be sure to contact your doctor if: ?? You see a change in your skin, such as a growth or mole that: ?? Grows bigger. This may happen slowly. ?? Changes color. ?? Changes shape. ?? Starts to bleed easily. Follow-up care is a allen part of your treatment and safety. Be sure to make and go to all appointments, and call your doctor if you are having problems. It's also a good idea to know your test results and keep a list of the medicines you take. Where can you learn more? Visit our health information library at [email or web address] You can also view health information on [employer], your personal patient account. Log in or sign up today. Enter V456 in the search box to learn more about Learning About Basal Cell Skin Cancer. ?? [phone] [employer]. Care instructions adapted under license by [facility]. This care instruction is for use with your licensed healthcare professional. If you have questionsabout a medical condition or this instruction, always ask your healthcare professional. [employer] disclaims any warranty or liability for your use of this information. Content Version: 9.9.124230; Last Revised: November 25, 2012 documented in this encounter Progress Notes Jorge Burk MD - 12/22/2013 10:54 AM EDT Problem: Biopsy proven superficial BCCA, right lower back. 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 She states that the above diagnosis was made by Dr. Sam and she would like to have definitive therapy for this. Physical examination reveals a 2 cm erythematous patch on the right lower back, which is biopsy proven superficial BCCA. Otherwise, examination of the head and the neck, the chest, the back, hands, arms, forearms, thighs, and calves reveals a number of small unremarkable symmetric pigmented nevi, but no lesions of concern. She is brown eyed with dark blonde hair and is moderately well tanned. Assessment and Plan: 1. Superficial BCCA, right lower back. a. After obtaining informed consent, site was anesthetized and removed with shave C and D. After shave biopsy, site measured 2 cm in diameter. b. Triple antibiotic ointment and Band-Aid placed. c. Wound care instructions and supplies given. Return to clinic in three months for repeat check. Note: No pathology was sent today given Dr. Sam's earlier biopsy of the site. documented in this encounter Plan of Treatment Not on filedocumented as of this encounter Visit Diagnoses Diagnosis Basal cell carcinoma - Primary Basal cell carcinoma of skin, site unspe cified Dermal nevus of other site Benign neoplasm of other specified sites of skin Other seborrheic keratosis documented in this encounter Care Teams Fourchette Sewer Relationship Specialty Start Date End Date Torres Sam DO PCP - General 12/22/13 12/25/[address] [place] [address] documented as of this encounter
--- OUTSIDE RECORDS SUMMARY | 2022-02-09 01:00 | XMS_ITS | Encounter Summary ---
:1960 Author Organization [facility] Address [address] [place] [address] Care Team Providers Name Role Phone None, Provider Primary Care Provider Unavailable Encounter Details Date Type Department Care Team Description 02/02/2020 Lab Requisition [facility] Ayala García for Pathology & MD Kate screening for other Laboratory Medicine - [address] viral diseases [place], [place] [address] [facility] [address] [place], [place] [address] Social History Tobacco Use Types Packs/Day Years Used Date Never Assessed Sex Assigned at Date Recorded Not on file documented as of this encounter Discharge Disposition Disposition Code Departure Means Destination Home or Self Care documented in this encounter Plan of Treatment Upcoming Encounters Date Type Specialty Care Team Description 04/11/2022 Office Visit Ophthalmology Wiliam Mena MD [address] [facility], [address], [address] [place], [place] [address] (Wo rk) documented as of this encounter Procedures Procedure Name Priority Date/Time Associated Comments Diagnosis DO NOT ORDER Today 02/02/2020 14:15 Encounter for Results fo r this STANDALONE - BRO[facility] EDT screening for other pr ocedure are in COVID TEST viral diseases the results section. COVID-19 TESTING Today 02/02/2020 14:15 Encounter for Result s for this EDT screening for other procedur e are in viral diseases the results section. documented in this encounter Results DO NOT ORDER STANDALONE - BROAD COVID TEST (02/02/2020 14:15 EDT) COVID-19 rt-PCR NEGATIVE Negative [facility] Result Comment: LABORATORY 2019-novel Coronavirus (2019 -nCoV) not detected by the qRT-PCR assay. Consider testing for other respiratory viruses or re-collecting for 2019-nCoV testing. Note: Optimum timing for peak viral levels du ring infections caused by 20 -nCoV have not been determined. Collection of multiple specimens from the same patient may be necessary to detect the virus. Limitations Positive results are indicat isra of active infection with SARS-CoV-2 but do not rule out bacterial infection or co-infection with other viruses. The agent detected may not be the definite cause of diseas e. In addition, detection of viral RNA may not indicate the presence of infectious virus or that SARS-CoV-2 is the causative agent for clinical symptoms. Negative results do not prec lude SARS-CoV-2 infection and should not be used as the sole basis for patient management decisions. Negative results must be combined with clinical observations, patient his tory, and epidemiological in formation. False negative results may also occur if amplification inhibitors are present in the specimen or if inadequate numbers of organisms are present in the specimen. Op timum specimen types and eder ing for peak viral levels during infections caused by SARS-CoV-2 have not been fully determined. Collection of multiple specimens (types and time points) from the same patient may be necessary to detect the virus. The test was validated for u with upper respiratory specimens obtained via nasopharyngeal or oropharyngeal swabs in VTM, UTM, M4, M5, M6, saline, and MTM media. The performance of this test has not be en established for other spe cimens. Specimens collected using other FDA recommended Specimen Collection Materials listed in the FDA COVID-19 [employer] Technologies communication (July 16, 2019) are pr ocessed with the caveat that they were not all validated for use with this test and the result must be interpreted in this context. Furthermore, a false negative results may occur if a specimen is improperly collected, transported or handled. If the virus mutates in the RT-PCR target region, SARS-CoV-2 may not be detected or may be detected less predictably. Inhibitors or other types of interference may produce a false negative result. An interference study evaluating the effect of common cold medications was not performed. This test is not FDA-cleared but its performance characteristics were established by our CLIA-certified, CAP-accredited, high complexity laboratory in accordance with CLIA regulations, College of [place] an Pathologists (CAP) guidel ishaan (Jul 09, 2019), and FDA guidance (Jun 20, 2019). This test is only for use un ashlee the Food and Drug Administration's Emergency Use Authorization. Specimen Swab - Entire nasopharynx (body structur e) Performing Organization Address City/State/ZIP Code Phon e Number [facility] [place] COVID-19 TESTING (02/02/2020 14:15 EDT) COVID-19 rt-PCR NEGATIVE Negative [facility] Result Comment: LABORATORY 2019-novel Coronavirus (2019 -nCoV) not detected by the qRT-PCR assay. Consider testing for other respiratory viruses or re-collecting for 2019-nCoV testing. Note: Optimum timing for peak viral levels du ring infections caused by 20 -nCoV have not been determined. Collection of multiple specimens from the same patient may be necessary to detect the virus. Limitations Positive results are indicat isra of active infection with SARS-CoV-2 but do not rule out bacterial infection or co-infection with other viruses. The agent detected may not be the definite cause of diseas e. In addition, detection of viral RNA may not indicate the presence of infectious virus or that SARS-CoV-2 is the causative agent for clinical symptoms. Negative results do not prec lude SARS-CoV-2 infection and should not be used as the sole basis for patient management decisions. Negative results must be combined with clinical observations, patient his tory, and epidemiological in formation. False negative results may also occur if amplification inhibitors are present in the specimen or if inadequate numbers of organisms are present in the specimen. Op timum specimen types and eder ing for peak viral levels during infections caused by SARS-CoV-2 have not been fully determined. Collection of multiple specimens (types and time points) from the same patient may be necessary to detect the virus. The test was validated for u se with upper respiratory specimens obtained via nasopharyngeal or oropharyngeal swabs in VTM, UTM, M4, M5, M6, saline, and MTM media. The performance of this test has not be en established for other spe cimens. Specimens collected using other FDA recommended Specimen Collection Materials listed in the FDA COVID-19 [employer] communication (July 16, 2019) are pr ocessed with the caveat that they were not all validated for use with this test and the result must be interpreted in this context. Furthermore, a false negative results may occur if a specimen is improperly collected, transported or handled. If the virus mutates in the RT-PCR target region, SARS-CoV-2 may not be detected or may be detected less predictably. Inhibitors or other types of interference may produce a false negative result. An interference study evaluating the effect of common cold medications was not performed. This test is not FDA-cleared but its performance characteristics were established by our CLIA-certified, CAP-accredited, high complexity laboratory in accordance with CLIA regulations, College of [employer] an Pathologists (CAP) guidel ishaan (Jul 09, 2019), and FDA guidance (Jun 20, 2019). This test is only for use un ashlee the Food and Drug Administration's Emergency Use Authorization. Performing Lab [facility] LABORATORY SERVICES Specimen Swab - Entire nasopharynx (body structur e) Performing Organization Address City/State/ZIP Code Phon e Number [facility] [address] [place] [address] SERVICES [facility] [place], [place] documented in this encounter Visit Diagnoses Diagnosis Encounter for screening for other viral diseases documented in this encounter Care Teams International Exchange Coordinator Relationship Specialty Start Date End Date None, Provider PCP - General 11/11/14 documented as of this encounter
--- OUTSIDE RECORDS SUMMARY | 2022-02-09 01:00 | XMS_ITS | Encounter Summary ---
:1960 Author Organization [facility] Address [address] [place] [address] Care Team Providers Name Role Phone Unknown, Provider Primary Care Provider Encounter Details Date Type Department Care Team Description 10/29/2012 Results Only [facility] Davie Moore am, MD [facility] - [address] [id number] Social History Tobacco Use Types Packs/Day Years Used Date Never Assessed Sex Assigned at Date Recorded Not on file documented as of this encounter Plan of Treatment Upcoming Encounters Date Type Specialty Care Team Description 04/11/2022 Office Visit Ophthalmology Wiliam Mena MD [address] [facility] [place], [place] michele Amor, [address] [place], [place] [phone] (Wo rk) documented as of this encounter Procedures Procedure Name Priority Date/Time Associated Diagnosis Comme nts SURGICAL PATHOLOGY Routine 10/29/2012 10:35 Resul ts for this EDT procedure are i n the results section. PAP TEST- RESULT Routine 10/29/2012 0:00 EDT Resu lts for this ONLY procedure are i n the results section. documented in this encounter Results SURGICAL PATHOLOGY (10/29/2012 10:35 EDT) Pathology Report: SURGICAL PATHOLOGY REPORT [facility] Reports generated via electronic interface contain mc ginal data; LAB however they are lacking the format of the original re port. Caution should be taken when reading/interpreting unfo rmatted reports. Name: ? ASHA, BRID GET A ? Accession #: ? [id number] ? : ? 1960 (Age: 52) ??F ? Collect Date: ? 10/29/2012 ? Location: ? [facility] ? Receive Date: ? 013 ? Provider: GOGO MOORE MD Copy to: JESUS EDWARD MD ? Final Pathologic Diagnosis: ENDOCERVIX, CURETTING: - ??Strips of endocervical m ucosa and scant reactive ectocervical epithelium in mucin. ??See comment Comment: ? Deeper sections examined. Document reviewed and electronically signed by: SILVANA MORGAN MD Report ??Date: 10/31/2012 16:31 By the signature above, the attending physician certif ies that he/she has personally conducted a gross and/or microscopic examin ation of the described specimens and rendered or confirmed the above diagnosi s. Specimen(s) Received: ECC Clinical History: Recent Pap: ASCUS/(+) HPV Gross Description: ? Received in formalin labelled with proper patient identification (initials D, B) and ECC is a 1.0 x 0.7 x 0.2 cm aggregat e of clear mucinous material. The specimen is entirely submitted as 1 following salvatore Allison 10/30/2012 02:02 PM End of Report Specimen Performing Organization Address City/State/ZIP Code Phon e Number [facility] [address] [place] [address] SERVICES [facility] [address] [place] [address] PAP TEST- RESULT ONLY (10/29/2012 0:00 EDT) Pathology Report: CYTOPATHOLOGY REPORT [facility] Reports generated via electronic interface contain mc ginal data; however they are lacking the format of the original re port. Caution should be taken when reading/interpreting unfo rmatted reports. Name: ? SERENA BARRY ? Accession #: ? [id number] : ? 1960 (Age: 52) ??F ?Collect Date: ? 10/20 Location: ? [facility] ? Receive Date : ? 10/30/2012 Provider: ?GOGO MOORE MD Copy to: ? [facility] ? [address] ?[place], [place] [address] ? Specimen/Source: ? Pap Test, Cervix/Endocervix, ThinPrep Imaging System with manual evaluation Last Menstrual Period: ? Previous Gynecologic Pathology: ? ASC-US: 10/02 HPV: +HR ? SPECIMEN ADEQUACY ? Satisfactory for Evaluation - transformation zone component present GENERAL CATEGORIZATION ? Epithelial Cell Abnormality INTERPRETATION ? Squamous Cell Abnormality - Atypical squamous c ells, undetermined significance (ASC-US). EDUCATIONAL NOTES/RECOMMENDATIONS ? [facility] recommends wilfrid jang ASCCP's 2012 Updated Consensus Guidelines for the Management of Abnormal Cervical Cancer Screening T ests and Cancer Precursors (JLGTD, 2013; 17(5):S1-S27). ??Conse nsus guidelines are available online at www.asccp.org. ? Document reviewed and electronically signed by: ? ANNE SWAIN MD ? Report Date: ??11/06/2012 08:11 End of Report Specimen Performing Organization Address City/State/ZIP Code Phon e Number [facility] [address] [place] [address] SERVICES [facility] [address] [place] [address] documented in this encounter Visit Diagnoses Not on filedocumented in this encounter Care Teams Toolmaker Grade Three Relationship Specialty Start Date End Date Unknown, Provider, PCP - General 10/29/12 02/02/13 documented as of this encounter
--- OUTSIDE RECORDS SUMMARY | 2022-02-09 01:00 | XMS_ITS | Encounter Summary ---
:1960 Author Organization [facility] Address [address] [place] [address] Care Team Providers Name Role Phone Torres Sam DO Primary Care Provider Encounter Details Date Type Department Care Team Description 11/09/2014 Hospital Encounter [facility] - S Unknown, Pro Amina velez MD 1 [facility] [phone] [place] [address] (Work) [phone] Social History Tobacco Use Types Packs/Day Years Used Date Never Assessed Sex Assigned at Date Recorded Not on file documented as of this encounter Discharge Disposition Disposition Code Departure Means Destination Home or Self Long Term documented in this encounter Plan of Treatment Upcoming Encounters Date Type Specialty Care Team Description 04/11/2022 Office Visit Ophthalmology Wiliam Mena MD 111 [facility], [facility], [facility] [address] [place], [place] [phone] (Wo rk) documented as of this encounter Visit Diagnoses Not on filedocumented in this encounter Care Teams Clinical Microbiologist Relationship Specialty Start Date End Date Torres Sam DO PCP - General 02/03/13 11/10/[address] [place], [place] [phone] documented as of this encounter
--- NOTE | 2022-02-09 09:30 | DI.US_ITS ---
APPROVED REPORT EXAM: Comprehensive 2D, Doppler, and color-flow Echocardiogram Patient Location: Out-Patient [place] Operator: Annel Cuba RDCS (AE) Indications: Lv function, Paroxysmal supraventricular tachycardia, Chest pain Other Information Study Quality: Adequate Conclusion Normal left ventricular wall thickness and chamber size. Estimated ejection fraction is 60%. Wall m otion is normal Normal right ventricular size and systolic function Both atria are normal in size There is no structural or hemodynamically significant valvular disease Wall motion Left Ventricle The left ventricle is normal size. The left ventricular systolic function is normal. The left ventric ular ejection fraction is within the normal range. There is normal left ventricular wall thickness. T here is normal LV segmental wall motion. There is no ventricular septal defect visualized. LVEF is 60 %. Right Ventricle The right ventricle is normal size. The right ventricular systolic function is normal. Atria The left atrium size is normal. The right atrium size is normal. The interatrial septum is intact wit h no evidence for an atrial septal defect. Aortic Valve The aortic valve is normal in structure. Aortic valve is trileaflet. There is no aortic valvular sten osis. No aortic regurgitation is present. Mitral Valve The mitral valve is normal in structure. No evidence of mitral valve stenosis. Trace mitral regurgita tion. Tricuspid Valve The tricuspid valve is normal in structure. There is no tricuspid valve stenosis. Trace tricuspid reg urgitation. Unable to assess PA pressure. Pulmonic Valve The pulmonary valve is normal in structure. There is no pulmonic valvular stenosis. There is no pulmo grisel valvular regurgitation. Great Vessels The aortic root is normal in size. The ascending aorta is normal in size. Aortic arch is normal in ca liber. IVC is normal in size and collapses >50% with inspiration. Pericardium There is no pericardial effusion. 2D Dimensions IVSD d PLAX 0.85 cm F: 0.6-1.0 LV Vol A2C d MOD 85.6 mL LVPW d PLAX 0.85 cm F: 0.6 - 1.0 LV Vol A4C d MOD 94.3 mL LVID d PLAX 4.88 cm F: 3.8 - 5.2 LA vol/ BSA A2C s A-L 20.9 mL/m2 LVDs 3.40 cm F: 2.2 - 3.5 LA vol/ BSA A4C s A-L 18.1 mL/m2 Ao Root d 2.88 cm F: 2.7 - 3.3 LA Vol/ BSA Biplane s A-L 19.8 mL/m2 RA Area A4C 11.83 cm2 LA Area A4C s MOD 13.13 cm2 RA Vol/ BSA A4C s A-L 14.4 mL/m2 LA Area A2C s MOD 13.87 cm2 Ao Asc Diam d 3.24 cm F: 2.3 - 3.1 LV EF A4C MOD 62.6 % LV EF Teichholz 56.8 % LV EF A2C MOD 60.7 % LVEF (Fuentes's) 61.69 % F: 54 - 74 LV EF Biplane MOD 61.7 % LV Volume 71.12 mL F: 46 - 106 SV 56.13 mL LV Volume Index 40.18 mL/m2 F: 29 - 61 SV Index 31.62 mL/m2 LV Vol Biplane MOD 91.0 mL FS 29.80 % M-Mode TAPSE 1.74 cm (M/F) >1.7 LV Diastology MV E' medial 0.130 (>0.07 m/s) E/A Ratio 1.0 LV E/e MED 5.15 (<14) MV E Vmax 0.68 (0.4-1.3 m/s) MV E' lateral 0.121 (>0.1 m/s) MV A Vmax 0.70 (0.4-1.3 m/s) LV E/e LAT 5.55 (<14) MV E/A Ratio 0.96 MV E/E' medial 5.18 MV E/E' lateral 5.60 Aortic Valve LVOT Area 3.16 cm2 AoV Area Vmax 2.57 cm2 LVOT Vmax 1.02 m/s AoV Area/ BSA (Vmax) 1.45 cm2/m2 LVOT Mean Isra. 0.69 m/s GISSELL Mean Isra. 2.30 cm2 LVOT Peak Grad 4.2 mmHg GISSELL Mean Isra. Index 1.30 cm2/m2 LVOT Mean Grad 2.2 mmHg LVOT VTI 0.222 m LVOT Diam s 2.00 cm AoV Vmax 1.25 m/s Velocity Ratio 0.81 AoV Mean Isra. 0.95 m/s AoV Peak Grad 6.3 mmHg LVOT SV 70.23 mL AoV Mean Grad 3.9 mmHg AoV VTI 0.278 m AoV Area VTI 2.53 cm2 AoV Area/ BSA (VTI) 1.42 cm/m2 Mitral Valve MV DT 206 (160-240 msec) MV PHT 60 msec MV Area PHT 3.69 cm2 MV VTI 0.211 m MV Area VTI 3.33 (4.0-6.0 cm2) Pulmonary Valve PV Vmax 0.73 (0.5-1.5 m/s) RVOT Peak Gr. 2.06 mmHg PV Peak Grad 2.1 mmHg RVOT Mean Gr. 0.95 mmHg PV Mean Grad 1.3 mmHg RVOT VTI 0.138 m PV VTI 0.137 m RVOT Vmax 0.72 m/s
== END ==
PROVIDERS: PCP Physician Assistant; Visit Provider Internal Medicine Cardiovascular Disease
DX: I47.1 Supraventricular tachycardia (principal)
CPT/HCPCS: 93306

== ENCOUNTER 2022-05-23 12:48 | Outpatient (CLI) | payer MEDICAID, SELFPAY ==
--- NOTE | 2022-05-23 12:45 | RT.EKG_ITS ---
APPROVED REPORT Exam: Resting ECG Reason for Exam: PSVT Patient Location: O HR:81 bpm ECG Measurements Heart Rate 81 AXIS MO 132 P 64 QRSd 84 QRS -53 QT 384 T 37 QTc 446 Conclusion Sinus rhythm...normal P axis, V-rate 50- 99 Left anterior fascicular block...axis(240,-40), init forces inf
== END 2022-05-23 12:49 | disposition home or self-care (01) ==
LOC: DI.CARD 12:49
PROVIDERS: PCP Physician Assistant; Visit Provider Internal Medicine Cardiovascular Disease
DX: I47.1 Supraventricular tachycardia (principal); R94.31 Abnormal electrocardiogram [ECG] [EKG]; I44.4 Left anterior fascicular block
CPT/HCPCS: 93010

== ENCOUNTER 2022-10-03 17:58 | Emergency (ER) | payer MEDICAID, SELFPAY ==
[2022-10-03 17:57] VITALS: BP 137/78; PULSE 107; RESP 20; TEMP 36.4; O2SAT 97
--- NOTE | 2022-10-03 18:00 | RT.EKG_ITS ---
APPROVED REPORT Exam: Resting ECG Reason for Exam: Weakness Patient Location: E HR:85 bpm ECG Measurements Heart Rate [address] 129 P 61 QRSd 92 QRS -53 QT 384 T 35 QTc 456 Conclusion Sinus rhythm...normal P axis, V-rate 60- 99 Left anterior fascicular block...axis(240,-40), init forces inf
--- NOTE | 2022-10-03 18:00 | DI.CT_ITS ---
Exam(s) CT CHEST PE ABD PELVIS W EXAM: CT CHEST PE ABD PELVIS W CLINICAL HISTORY: chest pain, tachycardia, right sided abdominal pn. TECHNIQUE: Imaging Protocol: Axial CT angiography was performed with multi-slice acquisition and m ulti-planar and/or 3D reconstructions. CONTRAST MATERIAL: Intravenous: Omnipaque 350 Contrast volume:100 ml Oral: None COMPARISON: CT CHEST WITH CONTRAST from 10/17/2017 FINDINGS: CHEST: AORTA: PULMONARY ARTERIES: There are no intra-arterial filling defects to suggest the presence of acute pulm onary emboli. LUNGS: There is no evidence of pulmonary infarction.Mild benign appearing increased markings noted in the posterior basal segment the left lung base-left lower lobe. This is unchanged from 2018. There are no pleural effusions on either side. No ominous pulmonary nodules. MEDIASTINUM: There is no hilar nor mediastinal adenopathy. Visualized thyroid unremarkable. CARDIAC: Heart size is normal. There is no pericardial effusion. There is no significant shift of t he interventricular septum.Caliber of the thoracic aorta is within normal limits. No evidence of aortic dissection. OSSEOUS: No significant osseous lesions.. ABDOMEN: There is no ascites. LIVER: There is a E cyst in left hepatic lobe which has significantly increased in size 2018, present ly measuring 2.4 by 2.3 cm, previously measuring 1 cm in 2018. Nevertheless still retains benign paolo racteristic appearance. No focal findings in the right hepatic lobe. No dilated intrahepatic ducts GALLBLADDER/BILIARY: No obvious gallbladder pathology. CBD is not dilated. PANCREAS: No evidence of pancreatic mass nor dilatation of the pancreatic duct. SPLEEN: Spleen is not enlarged. There are no intrasplenic lesions. Splenic and portal veins are vigil nt. ADRENALS: There are no significant adrenal masses. KIDNEYS:No cysts evident. No calculi nor hydronephrosis. No solid renal masses. The urinary bladder wall is uniformly thickened consistent with cystitis. ABDOMINAL AORTA: Abdominal aorta is not enlarged. LYMPH NODES: There is no retroperitoneal or para-aortic adenopathy. ABDOMINAL WALL/GI: No evidence of significant anterior abdominal wall hernia. No bowel obstruction. PELVIS: LYMPH NODES: There is no intrapelvic nor inguinal adenopathy. GI: No evidence of appendicitis.No evidence of sigmoid diverticulitis. URINARY BLADDER: There is significant uniform thickening of the urinary bladder wall (7 mm). There i s no gas within the urinary bladder wall. No distinct masses. No bladder diverticuli. No radiopaqu e calculi evident within the bladder lumen. REPRODUCTIVE: The anteverted uterus size is age-appropriate. There are no obvious abnormal adnexal f indings nor free fluid in the pelvis. OSSEOUS: No significant osseous lesions. No fractures. IMPRESSION: 1. No evidence of acute pulmonary emboli and no evidence of aortic dissection nor pericardial effusio n. 2. No acute infiltrates nor pleural effusions. Some scarring in the left lung base is unchanged from 2018. No intrathoracic adenopathy evident. 3. There is a cyst in the left hepatic lobe which has increased in size from the prior CT scan of 201 8, previously measuring 1 cm and presently measuring 2.4 x 2.3 cm. No other focal hepatic findings 4. There is significant uniform thickening of the urinary bladder wall consistent with chronic cystit is. This area was not covered on the prior chest CT scan of September 2017. There is no obvious distinct bladder wall mass nor diverticuli and there are no radiopaque calculi within the bladder lumen. Bot h kidneys appear unremarkable. 5. No evidence of appendicitis nor acute diverticulitis. There is no ascites. RADIATION DOSE DELIVERED: 1,165.66mGy.cm Total DLP DATA REPOSITORY: All CT scans at this facility are submitted to the National Radiology Data Registry (NRDR) Dose Index Registry (DIR) with the [employer] (ACR). RADIATION OPTIMIZATION: All CT scans at this facility use at least one of these dose optimization te chniques: automated exposure control; mA and/or kV adjustment per patient size (includes targeted exa ms where dose is matched to clinical indication); or iterative reconstruction.
--- NOTE | 2022-10-03 18:11 | ED.GENADUL_ITS ---
Discharge Plan Disposition Patient Disposition: Home Condition: Stable Discharge Details Clinical Impression: Nausea & vomiting, Chest pain, Abdominal pain Primary Care Provider: Jemima Whitney ED Provider: Patel Villarreal Home Meds and New Rx's Prescriptions: New ondansetron 4 mg tablet,disintegrating 4 mg PO Q8H PRN (Reason: nausea and vomiting) Qty: 30 0RF Continued naproxen 500 mg tablet,delayed release (DR/EC) 500 mg PO BID PRN (Reason: pain) Qty: 60 3RF cetirizine [All Day Allergy (cetirizine)] 10 mg tablet 10 mg PO DAILY PRN cyclobenzaprine 5 mg tablet 5 mg PO TID PRN Patient Comments: no longer taking 10/03/22 CT escitalopram oxalate 10 mg tablet 10 mg PO DAILY Patient Comments: no longer taking 10/03/22 CT lorazepam 0.5 mg tablet 0.5 mg PO BID PRN valacyclovir 500 mg tablet 500 mg PO Q12H PRN acetaminophen [Acetaminophen Extra Strength] 500 MG tablet 1,000 mg PO TID Qty: 60 0RF Patient Comments: no longer taking 10/03/22 CT venlafaxine 75 mg capsule,extended release 24hr 75 mg PO DAILY Patient Comments: TAKE ONE CAPSULE BY MOUTH EVERY DAY Discharge Instructions Instructions: Acute Nausea and Vomiting (ED) Additional Instructions: Your imaging did not show any significant abnormalities and your blood work also did not show concerning findings follow up with your primary care provider within 1 week especially if you have continued symptoms if you feel more ill, have severe worsening pain or difficulty breathing return to the emergency department Medical Decision Making 62 yo female with hx of svt, anxiety, who comes in with ems with general malaise, lightheadedness, chest pain and n/v since 3pm. 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 She states around 3pm she started to feel generally weak and lightheaded then started to have n/v, chest pain and right sided abdominal pain. She denies headaches, unilateral weakness, shortness of breath. She arrives stable, initially tachycardic to 107 now 88 on my exam. She is caox4 with clear speech, nih of 0 on arrival. She has clear lungs, no murmurs, soft abdomen with tenderness in the rlq and right upper abdomen without guarding. Unclear etiology for her abdominal pain, chest pain, and n/v along with lightheadedness, is in sinus with these symptoms so doubt arrythmia. No findings to suggest cva and no headache so doubt intracranial hemorrhage. Will obtain ekg/troponin, cbc, cmp, lipase, and CT chest for pe and ct abdomen pelvis to evaluate for possible cholecystitis vs appendicitis. pt feels significantly better, has no symptoms now and no abdominal tenderness, labs thus far unremarkable pending delta trop and UA. CT shows cystitis but no other acute findings. pt still asymptomatic and negative delta trop. Unclear etiology for her symptoms earlier, given she is asymptomatic now and has had reassuring workup feel she can f/u with her pcp, return precautions given Differential Diagnosis Differential Diagnosis: presyncope, anemia, cholecystitis, acs, pe Medical Records Medical records reviewed: Yes I reviewed the patient's medical records. Imaging Data Radiologic Study: Attestation: I personally reviewed and interpreted this imaging study as follows: Imaging: CT Scan Radiologist's impression: IMPRESSION: 1. Moderate cystitis. 2. Incidental findings as described. Lab Data Lab results reviewed: Yes I reviewed the patient's lab results. ECG Data Attestation: I personally reviewed and interpreted this ECG (s) as follows: Prior ECG tracings: available for review Interpretation: sinus rate of 85, pr 129, qtc 456 no stemi HPI General Mode of arrival: EMS . Date/Time Provider Initiated Documentation: 10/03/22 17:59 . Limitations to Documentation: no limitations . Information obtained by: patient . History of Present Illness 62 year old F presents to the emergency department with the chief complaint of nausea/vomiting, described as moderate, Patient started experiencing this hour(s) (3) and it has been constant. No relieving factors improve symptom(s), No exacerbating factors reported . Patient notes chest pain; denies fever/chills and shortness of breath. Patient did receive the following treatments prior to arrival, none Related Data Home Medications Medication Instructions Recorded Confirmed acetaminophen 500 mg tablet 1,000 mg PO TID #60 tabs 09/05/17 05/23/22 (Acetaminophen Extra Strength) naproxen 500 mg tablet,delayed 500 mg PO BID PRN pain #60 tabs 03/06/21 10/03/22 release cetirizine 10 mg tablet (All Day 10 mg PO DAILY PRN 11/09/21 10/03/22 Allergy (cetirizine)) cyclobenzaprine 5 mg tablet 5 mg PO TID PRN 11/09/21 05/23/22 escitalopram oxalate 10 mg tablet 10 mg PO DAILY 11/09/21 05/23/22 lorazepam 0.5 mg tablet 0.5 mg PO BID PRN 11/09/21 10/03/22 valacyclovir 500 mg tablet 500 mg PO Q12H PRN 11/09/21 10/03/22 ondansetron 4 mg disintegrating 4 mg PO Q8H PRN nausea and 10/03/22 tablet vomiting #30 tabs venlafaxine 75 mg capsule,extended 75 mg PO DAILY 10/03/22 10/03/22 release 24 hr Previous Rx's Medication Instructions Recorded acetaminophen 500 mg tablet 1,000 mg PO TID #60 tabs 09/05/17 (Acetaminophen Extra Strength) naproxen 500 mg tablet,delayed 500 mg PO BID PRN pain #60 tabs 03/06/21 release ondansetron 4 mg disintegrating 4 mg PO Q8H PRN nausea and 10/03/22 tablet vomiting #30 tabs Allergies Allergy/AdvReac Type Severity Reaction Status Date / Time ropinirole AdvReac Severe vomited Verified 05/23/22 12:53 for 3 days sertraline [From Zoloft] AdvReac Intermediate lack of Verified 05/23/22 12:53 responsiveness General Stated Complaint: GenMedical AMRITA: 3 Review of Systems All systems reviewed & are unremarkable except as noted in HPI and below Constitutional Constitutional: Denies chills and Denies fever(s) Eyes Eyes: Denies loss of vision Cardiovascular Cardiovascular: Reports chest pain and Denies dyspnea Respiratory Respiratory: Denies cough and Denies dyspnea Gastrointestinal Gastrointestinal: Reports abdominal pain and Reports vomiting Musculoskeletal Musculoskeletal: Denies joint swelling Neurologic Neurologic: Denies loss of vision PFSH All Active Problems (Updated 10/03/22 @ 21:15 by Patel Villarreal MD) Nausea & vomiting (Acute) Chest pain (Acute) Abdominal pain (Acute) Chest pain (Acute) Paroxysmal supraventricular tachycardia (Acute) Anxiety (Acute) Depressive disorder (Acute) Diverticula of colon (Acute 09/21/14) DR. FOSTER; PER COLONOSCOPY;09/21/14 Also seen on repeat colo in 2020 Migraine (Acute) Restless leg syndrome (Acute 02/15/15) Insomnia (Acute) Allergic rhinitis (Acute) Osteoarthritis (Chronic) Diverticulitis (Chronic) Colicky LLQ abdominal pain (Acute) Medical History Basal cell carcinoma of lower extremity (04/03/13) Carpal tunnel syndrome of right wrist (02/15/15) surgery 2016 De Quervain's tenosynovitis, left (11/02/16) Surgical History excision of breast ducts left side for bloody discharge History of carpal tunnel release History of colonoscopy (~10/2020) Reduction mammoplasty Family History Mother Essential hypertension Father Heart disease Social History Smoking/Tobacco Use Status: Never Smoking risk assessment performed?: Yes Alcohol Intake: current Alcohol Intake frequency: holidays/special occasions only Drug use: Never Substance use type: does not use Do you feel safe at home: Yes Do you feel safe in your relationship?: Yes Exam Const General: no acute distress Orientation: alert HENMT Head: normal to inspection Ears: external ears normal General nose exam: external nose normal Mouth: moist mucous membranes Eyes General: appearance normal, both eyes and all related structures Neck Neck: normal visual inspection Resp Effort & Inspection: normal respiratory effort and able to speak in complete sentences Auscultation: clear to auscultation bilaterally Cardio Jugular venous pressure: no JVD Rate: regular rate Heart Sounds: no murmurs GI Palpation: soft and tender Skin General skin exam: no rashes or lesions noted Neuro General: patient alert and patient oriented x3 Extrem General: normal to inspection Psych Mental Status: mental status grossly normal Course Vital Signs Vital signs: Vital Signs Temperature 36.4 C L 10/03/22 17:57 Pulse 107 H 10/03/22 17:57 Respiratory Rate 20 10/03/22 17:57 Blood Pressure 137/78 10/03/22 17:57 Pulse Oximetry 97 10/03/22 17:57 Temperature 36.4 C L 10/03/22 17:57 Temperature Source Oral 10/03/22 17:57 Pulse 107 H 10/03/22 17:57 Respiratory Rate 20 10/03/22 17:57 Respiratory Effort Short of Breath 10/03/22 18:03 Blood Pressure 137/78 10/03/22 17:57 Blood Pressure Position Supine 10/03/22 17:57 Pulse Oximetry 97 10/03/22 17:57 Oxygen Delivery Method Room Air 10/03/22 17:57 Oxygen Flow Rate 0 10/03/22 17:57 Pain Level 0 10/03/22 17:57
[2022-10-03 18:17] VITALS: RESP 16
[2022-10-03 18:22] LABS: Abs Immature Grans 0.02 10^3/uL (0.0-0.06); Absolute Basophil Count 0.04 10^3/uL (0.0-0.2); Absolute Eosinophil Count 0.02 10^3/uL (0.0-0.7); Absolute Lymphocyte Count 1.51 10^3/uL (1.2-3.4); Absolute Neutrophil Count 4.58 10^3/uL (1.2-6.7); Basophils % 0.6; Eosinophils % 0.3; HCT 40.2 % (36.0-46.0); HGB 13.5 g/dL (11.2-15.7); Immature Grans % 0.3; MCH 30.3 pg (27.0-33.0); MCHC 33.6 % (32.0-36.0); MCV 90 fL (80-95); MPV 10.7 fL (8.0-11.0); Monocytes % 6.1; Neutrophils % 69.7; Platelet Count 245 10^3/uL (130-400); RBC 4.46 10^6/uL (3.93-5.22); RDW 12.4 % (11.7-14.6); RDW-SD 41.6 fL; WBC 6.57 10^3/uL (4.4-10.8)
[2022-10-03] MEDS: Droperidol 5 MG/2 ML VIAL 2.5 MG IVP (18:24)
[2022-10-03] MEDS: Normal Saline 1,000 ML 1000 ML IV (18:28)
[2022-10-03 18:41] LABS: ALT 35 U/L (14-59); AST 16 U/L (15-37); Albumin 3.9 g/dL (3.4-5.0); Alkaline Phosphatase 57 U/L (46-116); Anion Gap 8.2 mmol/L (3-11); BUN 11 mg/dL (7-18); Bilirubin, Direct 0.1 mg/dL (0.0-0.2); Bilirubin, Total 0.7 mg/dL (0.2-1.0); CO2 29.8 mmol/L (21.0-32.0); CREATININE 0.7 mg/dL (0.55-1.02); Calcium 9.4 mg/dL (8.5-10.1); Chloride 104 mmol/L (98-107); Estimated GFR 98.34 (mL/min/1.73m2); Glucose 118 mg/dL (74-106); Lipase 28 U/L (16-77); Potassium 3.8 mmol/L (3.5-5.1); Sodium 142 mmol/L (136-145); Total Protein 7.6 g/dL (6.4-8.2); Troponin I < 50 ng/L (<or=60)
[2022-10-03] MEDS: Omnipaque 350 MG/ML 100 ML BTL IJ (19:04)
[2022-10-03] MEDS: Normal Saline - Diluent 50 ML VIAL IJ (19:05)
--- NOTE | 2022-10-03 19:52 | DI.VRAD_ITS ---
PROCEDURE INFORMATION: Exam: CTA Chest With Contrast CTA Abdomen With Contrast Exam date and time: 10/03/2022 19:17 Age: 62 years old Clinical indication: Other: Chest pain, tachycardia; Other: RT side abd pain TECHNIQUE: Imaging protocol: Computed tomographic angiography of the chest with contrast. Exam focused on the arteries. Computed tomographic angiography of the abdomen with contrast. Exam focused on the arteries. 3D rendering (Not supervised by radiologist): MIP and/or 3D reconstructed images were created by the technologist. Contrast material: 350; Contrast volume: 100 ml; Contrast route: INTRAVENOUS (IV); COMPARISON: CT CHEST WITH CONTRAST 10/17/2017 13:51 FINDINGS: VASCULATURE: Pulmonary arteries: No pulmonary emboli. Aorta: No aortic aneurysm. No aortic dissection. Celiac trunk and mesenteric arteries: No occlusion or significant stenosis. Renal arteries: No occlusion or significant stenosis. CHEST: Trachea: Minimal air trapping likely small airways disease. Lungs: No airspace consolidation. Pleural spaces: Unremarkable. No pneumothorax. No pleural effusion. Heart: Unremarkable. No cardiomegaly. No pericardial effusion. Diaphragm: Tiny hiatal hernia. ABDOMEN AND PELVIS: Liver: Benign hepatic cyst. No hepatic masses. Gallbladder and bile ducts: Unremarkable. No calcified stones. No ductal dilation. Pancreas: Unremarkable. No mass. No ductal dilation. Spleen: Unremarkable. No splenomegaly. Adrenal glands: Unremarkable. No mass. Kidneys and ureters: Benign-appearing renal cysts and probable cysts. Stomach and bowel: Colonic diverticulosis without diverticulitis. Intraperitoneal space: Unremarkable. No free air. No significant fluid collection. Urinary bladder: Moderate wall thickening of the urinary bladder with slight mucosal hyperemia and surrounding edema. Lymph nodes: Unremarkable. No enlarged lymph nodes. Bones/joints: Unremarkable. No acute fracture. Soft tissues: Unremarkable. IMPRESSION: 1. Moderate cystitis. 2. Incidental findings as described. Dictated and Authenticated by: Bella Gleason MD. Ordering:SEBLE Sweeney MD
[2022-10-03 20:19] LABS: Bilirubin Negative (Negative); Blood Negative (Negative); Clarity Clear (Clear); Glucose Negative (Negative); Ketones Negative (Negative); Leukocyte Esterase Negative (Negative); Nitrite Negative (Negative); Urobilinogen 0.2 mg/dL (Up to 0.2); pH 6.5 (5-8)
[2022-10-03 20:34] LABS: Troponin I < 50 ng/L (<or=60)
[2022-10-03] MEDS: Fosfomycin Tromethamine 3 GM PACKET PO (21:19)
[2022-10-03 21:22] VITALS: BP 129/95; PULSE 93; RESP 18; TEMP 36.5; O2SAT 95
--- NOTE | 2022-10-04 12:57 | NUR.NOTE ---
Nursing Note: Accessed pt chart to determine the urine culture result. It was the wrong order put in, Jazlyn, Lab; will cancel and reorder the correct order.
--- NOTE | 2022-10-06 13:31 | NUR.NOTE ---
Nursing Note: Accessed pt chart to determine if pt is on an antibiotic.
== END 2022-10-03 21:23 | disposition home or self-care (01) ==
LOC: ER 21:55
PROVIDERS: Emergency Provider Emergency Medicine; PCP Physician Assistant
DX: R11.2 Nausea with vomiting, unspecified (principal); R07.9 Chest pain, unspecified; R10.9 Unspecified abdominal pain; F41.9 Anxiety disorder, unspecified; R42 Dizziness and giddiness
CPT/HCPCS: 71275; 74177; 80053; 80076; 83690; 93005; 96361; 96374; 99285; 81003; 83735; 84484; 85025; 87086; 93010; 99284; J1790; J3490

== ENCOUNTER 2023-05-27 11:04 | Outpatient (CLI) | payer MEDICAID, SELFPAY ==
--- NOTE | 2023-05-27 11:00 | RT.EKG_ITS ---
APPROVED REPORT Exam: Resting ECG Reason for Exam: hx of svt Patient Location: O HR:68 bpm ECG Measurements Heart Rate 68 AXIS NE 129 P 65 QRSd 138 QRS -23 QT 386 T 26 QTc 411 Conclusion Sinus rhythm...normal P axis, V-rate 50- 99 Ventricular premature complex...V complex w/ short R-R interval Probable left ventricular hypertrophy...(RaVL+SV3)xQRSd >300 I have reviewed and interpreted ECG and agree with software generated interpretation.
== END 2023-05-27 11:05 | disposition home or self-care (01) ==
LOC: DI.CARD 11:05
PROVIDERS: PCP Physician Assistant; Visit Provider Internal Medicine Interventional Cardiology
DX: I47.10 Supraventricular tachycardia, unspecified (principal); R07.9 Chest pain, unspecified
CPT/HCPCS: 93010

== ENCOUNTER 2024-09-18 09:06 | Day surgery (SDC) | payer MEDICAID, SELFPAY ==
[2024-09-18 09:24] VITALS: BP 105/76; PULSE 64; RESP 16; TEMP 36.3; O2SAT 99
[2024-09-18] MEDS: Tropicam./Phenyleph. (1/2.5%) 5 ML BTL OS ×3 (09:32→10:03)
--- NOTE | 2024-09-18 09:54 | W.ANESPRE ---
General Info Date of Service Date Performed: 09/18/24 Height: 5 ft 5.5 in Weight: 70.3 kg Body Mass Index (BMI): 25.4 Surgical Procedure: Operation Date: 09/18/24 11:40 Proposed Procedure Side Surgeon p Cataract Extraction with IOL Implant Left Max Dorantes MD Meds Allergies and Home Medications Allergies Allergy/AdvReac Type Severity Reaction Status Date / Time ropinirole AdvReac Severe vomited Verified 09/18/24 09:35 for 3 days sertraline (From Zoloft) AdvReac Intermediate lack of Verified 09/18/24 09:35 responsiveness Home Medication ?Medication ?Instructions ?Recorded lorazepam 0.5 mg tablet 0.5 mg PO BID PRN 11/09/21 cyclobenzaprine 5 mg tablet 5 mg PO TID PRN 04/29/24 fluticasone propionate 50 1 spray intranasal DAILY 04/29/24 mcg/actuation nasal spray,suspension (Allergy Relief (fluticasone)) gabapentin 100 mg capsule 100 mg PO BID 04/29/24 metoprolol succinate 25 mg 25 mg PO DAILY 04/29/24 tablet,extended release 24 hr Current Visit Medications: Current Medications Generic Name Dose Route Start Last Admin Trade Name Freq PRN Reason Stop Dose Admin Acetaminophen 1,000 mg 09/18/24 06:00 Acetaminophen 500 Mg Tab PO 10/18/24 05:59 Q4H PRN PRN Balanced Salt Solution 500 ml 09/18/24 06:00 Balanced Salt Soln.-Plus 500 Ml Bag OP 10/18/24 05:59 DIRECTED VERÓNICA Miscellaneous Medication 0 ml 09/18/24 06:00 Prednisolone 1%, Moxifloxacin 0.5%, Bromfenac 0.09% 5.6ml Btl OS 10/18/24 05:59 DIRECTED VERÓNICA Miscellaneous Medication 0 ml 09/18/24 06:00 09/18/24 09:38 Tropicam./Phenyleph. (1/2.5%) 5 Ml Btl OS 10/18/24 05:59 1 drp DIRECTED VERÓNICA Administration Tetracaine HCl 0 ml 09/18/24 06:00 Tetracaine 0.5% 4 Ml Btl OS 10/18/24 05:59 DIRECTED VERÓNICA PFSH Active Problems Active Problems: Problem Status Onset Code Cortical age-related cataract, left eye Acute H25.012 Nuclear age-related cataract, left eye Acute H25.12 Chest pain Acute R07.9 Paroxysmal supraventricular tachycardia Acute I47.1 Diverticulitis Chronic K57.92 Colicky LLQ abdominal pain Acute R10.32 Osteoarthritis Chronic M19.90 Allergic rhinitis Acute J30.9 Insomnia Acute G47.00 Restless leg syndrome Acute 02/15/15 G25.81 Migraine Acute G43.909 Diverticula of colon Acute 09/21/14 K57.30 Depressive disorder Acute F32.9 Anxiety Acute F41.9 Medical History Medical History De Quervain's tenosynovitis, left (11/02/16) Carpal tunnel syndrome of right wrist (02/15/15) surgery 2016 Basal cell carcinoma of lower extremity (04/03/13) Surgical History Surgical History History of cardiac radiofrequency ablation 2022 History of colonoscopy (~10/2020) History of carpal tunnel release excision of breast ducts left side for bloody discharge Reduction mammoplasty Tobacco Smoking/Tobacco Use Status: Never Passive smoking exposure: No Alcohol Alcohol Intake: current Alcohol intake frequency: holidays/special occasions only Substance Use Substance use: Never Substance use type: does not use Vital Signs and Lab Results Vital Signs Most Recent Vital Signs in EMR: Most Recent Vital Signs Temp Pulse Resp BP Pulse Ox 36.3 C L 64 16 105/76 99 09/18/24 09:24 09/18/24 09:24 09/18/24 09:24 09/18/24 09:24 09/18/24 09:24 Lab Results Blood Type / Crossmatch: No Data to Display Complete Blood Count: No Data to Display Complete Metabolic Panel: No Data to Display Liver Function Panel: No Data to Display Coagulation Panel: No Data to Display Cardiac Panel: No Data to Display Arterial Blood Gas: No Data to Display Venous Blood Gas: No Data to Display Pancreas Panel: No Data to Display Thyroid Panel: No Data to Display Infectious Disease: No Data to Display Blood Cultures: No Data to Display Toxicology Panel: No Data to Display Imaging and Studies Imaging and Studies Study information below may be from another EMR and interpreted by another provider. Please see original notes in EMR for more complete details. EKG Summary: 2023:Conclusion Sinus rhythm...normal P axis, V-rate 50- 99 Ventricular premature complex...V complex w/ short R-R interval Probable left ventricular hypertrophy...(RaVL+SV3)xQRSd >300 Stress Test Summary: 2021:Stress ECG Conclusion 1. Resting electrocardiogram showed left anterior fascicular block, incomplete right bundle branch block 2. Patient exercised on Pablito protocol and completed a workload of 7.81 METS, stopping due to fatigue 3. Normal heart rate and blood pressure response to exercise. The patient achieved 89% of predicted heart rate for age 4. There was no electrocardiographic evidence of myocardial ischemia 5. There were no significant dysrhythmias James Treadmill Score is 5.3 which is Low risk. Echocardiogram Summary: 2021:Conclusion Normal left ventricular wall thickness and chamber size. Estimated ejection fraction is 60%. Wall motion is normal Normal right ventricular size and systolic function Both atria are normal in size There is no structural or hemodynamically significant valvular disease Anesthesia Assessment and Plan Anesthesia History Personal History: PONV Family History: No Family History of Anesthesia Complications Exercise Tolerance Exercise Tolerance: Metabolic Equivalents>4 Pertinent Negatives Pertinent Negatives: No Symptoms of GERD Cardiac & Pulmonary Exam Cardiac Exam: Normal S1/S2 Heart Sounds Pulmonary Exam: Clear Bilateral Breath Sounds Implantable Cardiac Device Does patient have a Pacemaker or an ICD?: No Airway Exam Known Difficult Airway: No Mallampati Class: 2 Mouth Opening: Normal (> 3cm) Thyromental Distance: Greater than 3 cm Neck Range of Motion: Full ROM Neck Circumference: Normal Teeth Condition: Normal Dentition and Loose or Chipped (Right upper broken, none loose) ASA Classification ASA Score: ASA 2 Emergency Case?: No NPO Status NPO Status: NPO Clears >2 hours, Solids >8 hours Anesthesia Plan Resuscitation Status: Full Code Anesthesia Technique: MAC Anesthesia Airway Planned: Natural Airway Monitors Used: Standard Monitors
[2024-09-18 09:58] VITALS: BMI 25.4
[2024-09-18] MEDS: Tetracaine 0.5% 4 ML BTL OS (11:00)
[2024-09-18] MEDS: Povidone-Iodine Ophth 30 ML BTL (11:00)
[2024-09-18] MEDS: Phenylephrine/Lidocaine (15/10) MG/ML 1 ML VIAL (11:07)
[2024-09-18] MEDS: Balanced Salt Soln.-PLUS 500 ML BAG OP (11:07)
[2024-09-18] MEDS: Lidocaine 1% Pres-Free 5 ML VIAL (11:08)
[2024-09-18] MEDS: Duovisc Viscoelastic System EACH 1 EACH (11:09)
[2024-09-18] MEDS: Prednisolone 1%, Moxifloxacin 0.5%, Bromfenac 0.09% 5.6ML BTL OS (11:11)
[2024-09-18] MEDS: Moxifloxacin-PF 1 MG/ML VIAL (11:12)
[2024-09-18 11:26] VITALS: BP 105/71; PULSE 57; RESP 16; TEMP 36.3; O2SAT 97
--- NOTE | 2024-09-18 11:27 | W.PM.DSUDISC ---
Date of service: 09/18/24 Discharge Plan Disposition Patient Disposition: Home Discharge Details Attending Provider: Max Dorantes Primary Care Provider: Jemima Whitney Home Meds and New Rx's Prescriptions: No Action cyclobenzaprine 5 mg tablet 5 mg PO TID PRN fluticasone propionate [Allergy Relief (fluticasone)] 50 mcg/actuation spray,suspension 1 spray intranasal DAILY Rx Instructions: administer into each nostril gabapentin 100 mg capsule 100 mg PO BID metoprolol succinate 25 mg tablet extended release 24 hr 25 mg PO DAILY lorazepam 0.5 mg tablet 0.5 mg PO BID PRN Discharge Instructions Stand Alone Forms: DSU Post-Op CataractMahad (DSU) Discharge Orders Discharge Orders: Discharge Order (Routine); Ordered 09/18/24 Ordered By: Max Dorantes DS: Diagnosis Discharge Diagnosis (1) Cortical age-related cataract, left eye: Status: Resolved (2) Nuclear age-related cataract, left eye: Status: Resolved
--- NOTE | 2024-09-18 11:28 | W.PM.OP ---
Operative Note Operative Note PRE-OP DIAGNOSIS: Nuclear/cortical cataract, left eye POST-OP DIAGNOSIS: same PROCEDURE: Cataract extraction using phacoemulsification with intraocular lens implant, left eye SURGEON: Max Dorantes ANESTHESIA TYPE: Local By Surgeon and MAC Refer to Anesthesia Record PATHOLOGY: none sent COMPLICATIONS: None Patient was transported to: same day Patient's condition: stable Implants: Sony Clareon [id number] Indications: Progressive decreased vision due to cataract, left eye Procedure Description: CATARACT SURGERY OPERATIVE REPORT PREOPERATIVE DIAGNOSIS: Nuclear/cortical cataract, left eye POSTOPERATIVE DIAGNOSIS: Same OPERATION: Cataract extraction using phacoemulsification with posterior chamber intraocular lens implant, left eye. IOL: IOL Firearms Specialist/Model: Sony Clareon [id number] IOL Power: + 19.0 diopters IOL Serial Number: [id number] Optic Diameter: 6.0mm Haptic/Overall Diameter: 13.0mm PHACO INFO: Sony Centurion Vision System with OZil and Active Fluidics Cumulative Dispersed Energy (CDE): 2.63 seconds SURGEON: Max Dorantes MD, MIRELA ANESTHESIA: Monitored Anesthesia Care (MAC), with local sub-tenon's anesthetic infiltration COMPLICATIONS: None SPECIMENS: None INDICATIONS FOR PROCEDURE: The patient is a 64-year-old lady with history of diminished visual acuity in left eye secondary to the development of nuclear/cortical cataract. She is significantly symptomatic that she desires cataract surgery attempt to improve and maximize her vision. See office notes for detailed information. PROCEDURE: The correct surgical eye was identified and marked as the left eye and the pupil was dilated in the preoperative area using mydriatics and cycloplegics. The dilated pupil size was 8.0 mm. Oral sedation was administered in the form of an Imprimis MKO Melt (midazolam 3mg/ketamine 25mg/ondansetron 2mg). The patient was brought to the operating room where cardiopulmonary monitoring was instituted and surgical time-out was performed, confirming the correct operative eye and IOL power. Topical anesthesia was administered and ophthalmic povidone-iodine 5% was instilled into the conjunctival fornices. The rebecca-ocular area was prepped with Betadine 10% solution and draped in the usual sterile fashion for intraocular surgery, including an aperture drape. A Tegaderm transparent film dressing was cut in half and used to cover the lashes and lid margins. Care was taken to sequester the lashes and lid margins under the Tegaderm dressing. A lid speculum was placed between the lids of the operative eye and the Sony LuxOR Revalia operating microscope was maneuvered into position. Lucio scissors were then used to make a conjunctival buttonhole approximately 6mm posterior to the limbus in the inferonasal quadrant. Blunt dissection was carried out to expose bare sclera, and a blunt-tipped sub-tenon?s anesthesia cannula was introduced and passed posteriorly along the globe where non-preserved plain lidocaine was injected into posterior sub-Tenon?s space. A sideport knife was used to make a paracentesis port. Intraocular phenylephrine/lidocaine was injected into the anterior chamber. The anterior chamber was then filled with viscoelastic. A keratome knife was used construct a two-plane clear corneal tunnel extending 2.0mm into clear cornea. A flap was raised on the anterior capsule and capsulorhexis forceps were used to complete a continuous curvilinear capsulorhexis of 6.0 mm. The anterior Capsule was noted to be quite thin. Balanced salt solution was then used to perform cortical cleaving hydrodissection and nuclear hydrodelineation until the lens could be freely rotated within the capsular bag. The lens nucleus was then disassembled and removed within the capsular bag and iris plane using phacoemulsification. Residual cortical material was removed using the irrigation/aspiration handpiece. The posterior capsule was carefully polished to remove as much residual lens epithelial cells as safely possible. The capsular bag was then inflated and the anterior chamber deepened with viscoelastic. The lens implant described above was inserted into the capsular bag using the Sony Autonome Injector. A Kuglen hook was used to dial the IOL into position. Residual viscoelastic was then removed first from posterior to the IOL, then from the anterior chamber using the I/A handpiece. The lens implant was noted to center nicely within the capsular bag. The incisions were stromally hydrated, and the anterior chamber was reformed using BSS. Then 0.5cc of moxifloxacin 1.0mg/ml were injected into the capsular bag and anterior chamber. The incisions were checked with a Weck spear and found to be secure. Several drops of ophthalmic povidone-iodine 5% were then applied to the eye followed by two drops of combination steroid/NSAID/antibiotic solution. The drapes were removed and a clear plastic protective eye shield was placed over the eye. The patient was then returned to Same Day Surgery in stable condition. Date of Procedure: 09/18/24
--- NOTE | 2024-09-18 11:32 | W.ANESPOSTOP ---
Postoperative Evaluation Date, Time and Location Date Performed: 09/18/24 Time Performed: 11:33 Patient Location: Day Surgery Unit Vital Signs Most Recent Imported Vital Signs: Most Recent Vital Signs Temp Pulse Resp BP Pulse Ox 36.3 C L 57 L 16 105/71 97 09/18/24 11:26 09/18/24 11:26 09/18/24 11:26 09/18/24 11:26 09/18/24 11:26 Pain Score Most Recent Pain Score: Most Recent Pain Score Pain Level 0 09/18/24 11:26 Assessment Mental Status: Awake (Alert & Oriented to Patient Baseline) Airway and Respiratory Function: Patent airway with normal (patient baseline) respiratory exam Cardiovascular Function: Hemodynamically Stable Hydration Status: Adequately Hydrated Nausea & Vomiting: No Nausea or Vomiting Pain: Pt. Denies Any Pain Peripheral Nerve Block: Patient did not receive a nerve block
[2024-09-18 11:56] VITALS: BP 121/78; PULSE 63; RESP 16; TEMP 36.6; O2SAT 97
== END 2024-09-18 11:58 | disposition home or self-care (01) ==
LOC: SUR 09:07
PROVIDERS: PCP Emergency Medicine; Visit Provider Ophthalmology
PROC: (CPT 66984; principal; 2024-09-18 11:30)
DX: H25.012 Cortical age-related cataract, left eye (principal); H25.12 Age-related nuclear cataract, left eye
CPT/HCPCS: 66984; 00123; V2632; J2003

== ENCOUNTER 2024-10-02 10:03 | Day surgery (SDC) | payer MEDICAID, SELFPAY ==
[2024-10-02 10:31] VITALS: BP 118/66; PULSE 62; RESP 16; TEMP 36.2; O2SAT 99
[2024-10-02] MEDS: Tropicam./Phenyleph. (1/2.5%) 5 ML BTL OD ×3 (10:36→11:08)
--- NOTE | 2024-10-02 11:04 | W.ANESPRE ---
General Info Date of Service Date Performed: 10/02/24 Height: 5 ft 5.5 in Weight: 69.4 kg Body Mass Index (BMI): 25.0 Surgical Procedure: Operation Date: 10/02/24 11:25 Proposed Procedure Side Surgeon p Cataract Extraction with IOL Implant Right Max Dorantes MD Meds Allergies and Home Medications Allergies Allergy/AdvReac Type Severity Reaction Status Date / Time ropinirole AdvReac Severe vomited Verified 10/02/24 10:19 for 3 days sertraline (From Zoloft) AdvReac Intermediate lack of Verified 10/02/24 10:19 responsiveness Home Medication ?Medication ?Instructions ?Recorded lorazepam 0.5 mg tablet 0.5 mg PO BID PRN 11/09/21 cyclobenzaprine 5 mg tablet 5 mg PO TID PRN 04/29/24 fluticasone propionate 50 1 spray intranasal DAILY 04/29/24 mcg/actuation nasal spray,suspension (Allergy Relief (fluticasone)) gabapentin 100 mg capsule 100 mg PO BID 04/29/24 metoprolol succinate 25 mg 25 mg PO DAILY 04/29/24 tablet,extended release 24 hr Current Visit Medications: Current Medications Generic Name Dose Route Start Last Admin Trade Name Freq PRN Reason Stop Dose Admin Acetaminophen 1,000 mg 10/02/24 06:00 Acetaminophen 500 Mg Tab PO 11/01/24 05:59 Q4H PRN PRN Balanced Salt Solution 500 ml 10/02/24 06:00 Balanced Salt Soln.-Plus 500 Ml Bag OP 11/01/24 05:59 DIRECTED VERÓNICA Miscellaneous Medication 0 ml 10/02/24 06:00 Prednisolone 1%, Moxifloxacin 0.5%, Bromfenac 0.09% 5.6ml Btl OD 11/01/24 05:59 DIRECTED VERÓNICA Miscellaneous Medication 0 ml 10/02/24 06:00 10/02/24 10:42 Tropicam./Phenyleph. (1/2.5%) 5 Ml Btl OD 11/01/24 05:59 1 drp DIRECTED VERÓNICA Administration Tetracaine HCl 0 ml 10/02/24 06:00 Tetracaine 0.5% 4 Ml Btl OD 11/01/24 05:59 DIRECTED VERÓNICA PFSH Active Problems Active Problems: Problem Status Onset Code Cortical age-related cataract, right eye Acute H25.011 Nuclear age-related cataract, right eye Acute H25.11 Cortical age-related cataract, left eye Resolved H25.012 Nuclear age-related cataract, left eye Resolved H25.12 Chest pain Acute R07.9 Paroxysmal supraventricular tachycardia Acute I47.1 Diverticulitis Chronic K57.92 Colicky LLQ abdominal pain Acute R10.32 Osteoarthritis Chronic M19.90 Allergic rhinitis Acute J30.9 Insomnia Acute G47.00 Restless leg syndrome Acute 02/15/15 G25.81 Migraine Acute G43.909 Diverticula of colon Acute 09/21/14 K57.30 Depressive disorder Acute F32.9 Anxiety Acute F41.9 Medical History Medical History De Quervain's tenosynovitis, left (11/02/16) Carpal tunnel syndrome of right wrist (02/15/15) surgery 2016 Basal cell carcinoma of lower extremity (04/03/13) Surgical History Surgical History Hx of cataract extraction History of cardiac radiofrequency ablation 2022 History of colonoscopy (~10/2020) History of carpal tunnel release excision of breast ducts left side for bloody discharge Reduction mammoplasty Tobacco Smoking/Tobacco Use Status: Never Passive smoking exposure: No Alcohol Alcohol Intake: current Alcohol intake frequency: holidays/special occasions only Substance Use Substance use: Never Substance use type: does not use Vital Signs and Lab Results Vital Signs Most Recent Vital Signs in EMR: Most Recent Vital Signs Temp Pulse Resp BP Pulse Ox 36.2 C L 62 16 118/66 99 10/02/24 10:31 10/02/24 10:31 10/02/24 10:31 10/02/24 10:31 10/02/24 10:31 Imaging and Studies Imaging and Studies Study information below may be from another EMR and interpreted by another provider. Please see original notes in EMR for more complete details. EKG Summary: 2023:Conclusion Sinus rhythm...normal P axis, V-rate 50- 99 Ventricular premature complex...V complex w/ short R-R interval Probable left ventricular hypertrophy...(RaVL+SV3)xQRSd >300 Stress Test Summary: 2021:Stress ECG Conclusion 1. Resting electrocardiogram showed left anterior fascicular block, incomplete right bundle branch block 2. Patient exercised on Pablito protocol and completed a workload of 7.81 METS, stopping due to fatigue 3. Normal heart rate and blood pressure response to exercise. The patient achieved 89% of predicted heart rate for age 4. There was no electrocardiographic evidence of myocardial ischemia 5. There were no significant dysrhythmias James Treadmill Score is 5.3 which is Low risk. Echocardiogram Summary: 2021:Conclusion Normal left ventricular wall thickness and chamber size. Estimated ejection fraction is 60%. Wall motion is normal Normal right ventricular size and systolic function Both atria are normal in size There is no structural or hemodynamically significant valvular disease Anesthesia Assessment and Plan Anesthesia History Personal History: PONV Family History: No Family History of Anesthesia Complications Exercise Tolerance Exercise Tolerance: Metabolic Equivalents>4 Pertinent Negatives Pertinent Negatives: No Symptoms of GERD, No Major Cardiovascular Symptoms or Complaints and No Major Pulmonary Symptoms or Complaints Cardiac & Pulmonary Exam Cardiac Exam: Normal S1/S2 Heart Sounds Pulmonary Exam: Clear Bilateral Breath Sounds Implantable Cardiac Device Does patient have a Pacemaker or an ICD?: No Airway Exam Known Difficult Airway: No Mallampati Class: 2 Mouth Opening: Normal (> 3cm) Thyromental Distance: Greater than 3 cm Neck Range of Motion: Full ROM Neck Circumference: Normal Teeth Condition: Normal Dentition and Loose or Chipped (Right upper broken, none loose) ASA Classification ASA Score: ASA 2 Emergency Case?: No NPO Status NPO Status: NPO Clears >2 hours, Solids >8 hours Anesthesia Plan Resuscitation Status: Full Code Anesthesia Technique: MAC Anesthesia Airway Planned: Natural Airway Monitors Used: Standard Monitors Preoperative Comments:: Had MKO with first cataract procedure. Didn?t like the dizziness that lasted thru the next day. No MKO today.
[2024-10-02 11:20] VITALS: BMI 25.0
[2024-10-02] MEDS: Duovisc Viscoelastic System EACH 1 EACH (11:37)
[2024-10-02] MEDS: Moxifloxacin-PF 1 MG/ML VIAL (11:38)
[2024-10-02] MEDS: Lidocaine 1% Pres-Free 5 ML VIAL (11:38)
[2024-10-02] MEDS: Phenylephrine/Lidocaine (15/10) MG/ML 1 ML VIAL (11:38)
[2024-10-02] MEDS: Povidone-Iodine Ophth 30 ML BTL (11:39)
[2024-10-02] MEDS: Balanced Salt Soln.-PLUS 500 ML BAG OP (11:39)
[2024-10-02] MEDS: Prednisolone 1%, Moxifloxacin 0.5%, Bromfenac 0.09% 5.6ML BTL OD (11:40)
[2024-10-02] MEDS: Tetracaine 0.5% 4 ML BTL OD (11:40)
--- NOTE | 2024-10-02 11:56 | W.PM.DSUDISC ---
Date of service: 10/02/24 Discharge Plan Disposition Patient Disposition: Home Discharge Details Attending Provider: aMx Dorantes Primary Care Provider: Jemima Whitney Home Meds and New Rx's Prescriptions: No Action cyclobenzaprine 5 mg tablet 5 mg PO TID PRN fluticasone propionate [Allergy Relief (fluticasone)] 50 mcg/actuation spray,suspension 1 spray intranasal DAILY Rx Instructions: administer into each nostril gabapentin 100 mg capsule 100 mg PO BID metoprolol succinate 25 mg tablet extended release 24 hr 25 mg PO DAILY lorazepam 0.5 mg tablet 0.5 mg PO BID PRN Discharge Instructions Stand Alone Forms: D[facility] Post-Op CataractMahad (DSU) Discharge Orders Discharge Orders: Discharge Order (Routine); Ordered 10/02/24 Ordered By: Max Dorantes DS: Diagnosis Discharge Diagnosis (1) Cortical age-related cataract, right eye: Status: Resolved (2) Nuclear age-related cataract, right eye: Status: Resolved
[2024-10-02 11:57] VITALS: BP 95/78; PULSE 67; RESP 14; TEMP 36.1; O2SAT 98
--- NOTE | 2024-10-02 11:57 | W.PM.OP ---
Operative Note Operative Note PRE-OP DIAGNOSIS: Nuclear/cortical cataract, right eye POST-OP DIAGNOSIS: same PROCEDURE: Cataract extraction using phacoemulsification with intraocular lens implant, right eye SURGEON: Max Dorantes ANESTHESIA TYPE: Local By Surgeon and MAC Refer to Anesthesia Record ESTIMATED BLOOD LOSS: 0 PATHOLOGY: none sent COMPLICATIONS: None Patient was transported to: same day Patient's condition: stable Implants: Sony Clareon [id number] Indications: Progressive decreased vision due to cataract, right eye Procedure Description: CATARACT SURGERY OPERATIVE REPORT PREOPERATIVE DIAGNOSIS: Nuclear/cortical cataract, right eye POSTOPERATIVE DIAGNOSIS: Same OPERATION: Cataract extraction using phacoemulsification with posterior chamber intraocular lens implant, right eye. IOL: IOL Educational Manager/Model: Sony Clareon [id number] IOL Power: + 18.5 diopters IOL Serial Number: [id number] Optic Diameter: 6.0mm Haptic/Overall Diameter: 13.0mm PHACO INFO: Sony Centurion Vision System with OZil and Active Fluidics Cumulative Dispersed Energy (CDE): 1.08 seconds SURGEON: Max Dorantes MD, MIRELA ANESTHESIA: Monitored Anesthesia Care (MAC), with local sub-tenon's anesthetic infiltration COMPLICATIONS: None SPECIMENS: None INDICATIONS FOR PROCEDURE: The patient is a 64-year-old lady with history of diminished visual acuity in both eyes secondary to the development of bilateral nuclear/cortical cataract. She has already undergone cataract surgery in the left eye and is doing well postoperatively. She now presents for cataract surgery in the right eye. See office notes for detailed information. PROCEDURE: The correct surgical eye was identified and marked as the right eye and the pupil was dilated in the preoperative area using mydriatics and cycloplegics. The dilated pupil size was 7.5 mm. The patient elected to proceed without oral sedation. The patient was brought to the operating room where cardiopulmonary monitoring was instituted and surgical time-out was performed, confirming the correct operative eye and IOL power. Topical anesthesia was administered and ophthalmic povidone-iodine 5% was instilled into the conjunctival fornices. The rebecca-ocular area was prepped with Betadine 10% solution and draped in the usual sterile fashion for intraocular surgery, including an aperture drape. A Tegaderm transparent film dressing was cut in half and used to cover the lashes and lid margins. Care was taken to sequester the lashes and lid margins under the Tegaderm dressing. A lid speculum was placed between the lids of the operative eye and the Sony LuxOR Revalia operating microscope was maneuvered into position. Lucio scissors were then used to make a conjunctival buttonhole approximately 6mm posterior to the limbus in the inferonasal quadrant. Blunt dissection was carried out to expose bare sclera, and a blunt-tipped sub-tenon?s anesthesia cannula was introduced and passed posteriorly along the globe where non-preserved plain lidocaine was injected into posterior sub-Tenon?s space. A sideport knife was used to make a paracentesis port. Intraocular phenylephrine/lidocaine was injected into the anterior chamber. The anterior chamber was then filled with viscoelastic. A keratome knife was used to construct a two--plane clear corneal tunnel extending 2.0mm into clear cornea. A flap was raised on the anterior capsule and capsulorhexis forceps were used to complete a continuous curvilinear capsulorhexis of 5.5 mm. Balanced salt solution was then used to perform cortical cleaving hydrodissection and nuclear hydrodelineation until the lens could be freely rotated within the capsular bag. The lens nucleus was then disassembled and removed within the capsular bag and iris plane using phacoemulsification. Residual cortical material was removed using the I/A handpiece. The posterior capsule was carefully polished to remove as much residual lens epithelial cells as safely possible. The capsular bag was then inflated and the anterior chamber deepened with cohesive viscoelastic. The lens implant described above was inserted into the capsular bag using the Sony Autonome Injector. A Kuglen hook was used to dial the IOL into position. Residual viscoelastic was then removed first from posterior to the IOL, then from the anterior chamber using the I/A handpiece. The lens implant was noted to center nicely within the capsular bag. The incisions were stromally hydrated, and the anterior chamber was reformed using BSS. Then 0.5cc of moxifloxacin 1.0mg/ml were injected into the capsular bag and anterior chamber. The incisions were checked with a Weck spear and found to be secure. Several drops of ophthalmic povidone-iodine 5% were then applied to the eye followed by two drops of combination steroid/NSAID/antibiotic solution. The drapes were removed and a clear plastic protective eye shield was placed over the eye. The patient was then returned to Same Day Surgery in stable condition. Date of Procedure: 10/02/24
--- NOTE | 2024-10-02 12:31 | W.ANESPOSTOP ---
Postoperative Evaluation Date, Time and Location Date Performed: 10/02/24 Time Performed: 11:57 Patient Location: Day Surgery Unit Vital Signs Most Recent Imported Vital Signs: Most Recent Vital Signs Temp Pulse Resp BP Pulse Ox 36.1 C L 67 14 95/78 L 98 10/02/24 11:57 10/02/24 11:57 10/02/24 11:57 10/02/24 11:57 10/02/24 11:57 Pain Score Most Recent Pain Score: Most Recent Pain Score Pain Level 0 10/02/24 11:57 Assessment Mental Status: Awake (Alert & Oriented to Patient Baseline) Airway and Respiratory Function: Patent airway with normal (patient baseline) respiratory exam Cardiovascular Function: Hemodynamically Stable Hydration Status: Adequately Hydrated Nausea & Vomiting: No Nausea or Vomiting Pain: Pt. Denies Any Pain Peripheral Nerve Block: Patient did not receive a nerve block
== END 2024-10-02 12:17 | disposition home or self-care (01) ==
LOC: SUR 10:03
PROVIDERS: PCP Emergency Medicine; Visit Provider Ophthalmology
PROC: (CPT 66984; principal; 2024-10-02 11:15)
DX: H25.011 Cortical age-related cataract, right eye (principal); H25.11 Age-related nuclear cataract, right eye; Z98.42 Cataract extraction status, left eye
CPT/HCPCS: 66984; 00123; V2632; J2003